=== PATIENT | female | born 1925 | race Caucasian/White ===

== ENCOUNTER 2016-09-28 12:40 | Inpatient (IN) | payer BC, OTHER ==
[2016-09-28 12:48] VITALS: BMI 25.6
[2016-09-28 14:16] LABS: MCH 33.1 pg (25.7-33.7); MCHC 31.8 g/dl (32.0-36.0); MEAN CELL VOLUME 104.1 fl (80-96); MEAN PLT VOLUME 7.5 fl (7.5-11.1); PLATELET COUNT 179 K/MM3 (134-434); RDW 22.2 % (11.6-15.6)
[2016-09-28] MEDS ORDERED: VANCOMYCIN 1,000 MG in DEXTROSE 5%-WATER - 250 ML IVPB ONE (14:22)
[2016-09-28] MEDS ORDERED: PIPERACILLIN/TAZOB 3.375 GM/50 ML PRE-DOCKED IVPB ONE (14:23)
[2016-09-28 14:28] LABS: INR 1.28 (0.82-1.09); PROTHROMBIN TIME (PATIENT) 14.2 SEC (9.98-11.88)
--- NOTE | 2016-09-28 14:35 | PDOC ---
[id number] Occurred: reports: other Severity: Yes: severe Lower Extremity Pain Location: left: leg Method of Injury: Yes: fell <Lalit Cornejo - Last Filed: 09/28/16 15:26> <Red Francoisan - Last Filed: 09/29/16 09:47> - General Chief Complaint: Weakness Stated Complaint: WEAK/PAIN Time Seen by Provider: 09/28/16 13:34 Past History - Past Medical History Anemia: Yes Asthma: No Cancer: No Cardiac Disorders: Yes (PPM) CVA: No COPD: No CHF: Yes Dementia: Yes Diabetes: No GI Disorders: No Disorders: No HTN: Yes Hypercholesterolemia: Yes Liver Disease: No Suicide Attempt (Hx): No Seizures: No Thyroid Disease: No - Surgical History Abdominal Surgery: No Appendectomy: No Cardiac Surgery: Yes (permanent pacemaker in infraclavicular region ) Cholecystectomy: No Lung Surgery: No Neurologic Surgery: No Orthopedic Surgery: Yes (fx B wrists and clavicle) - Immunization History Td Vaccination: Yes TDAP Vaccination: Yes Immunization Up to Date: Yes - Psycho/Social/Smoking Cessation Hx Anxiety: No Suicidal Ideation: No Smoking Status: No Smoking History: Never smoked Have you smoked in the past 12 months: No Number of Cigarettes Smoked Daily: 0 If you are a former smoker, when did you quit?: 50 years ago Hx Alcohol Use: No Drug/Substance Use Hx: No Substance Use Type: None Hx Substance Use Treatment: No <Lalit Cornejo - Last Filed: 09/28/16 15:26> <Red Francoisan - Last Filed: 09/29/16 09:47> - Past Medical History Allergies/Adverse Reactions: Allergies Allergy/AdvReac Type Severity Reaction Status Date / Time No Known Allergies Allergy Verified 09/28/16 12:48 Home Medications: Ambulatory Orders Fenofibric Acid [Trilipix -] 135 mg PO DAILY #0 cap 04/08/15 Folic Acid 1 mg PO DAILY 05/08/15 Magnesium Chloride [Slow-Mag -] 128 mg PO DAILY tablet.sa 05/18/15 Allopurinol [Zyloprim -] 100 mg PO DAILY tablet 09/29/15 Metoprolol Tartrate [Lopressor -] 50 mg PO BID tablet 09/29/15 Citalopram Hydrobromide [Celexa -] 1 tab PO DAILY 10/04/16 Ferrous Sulfate 1 tab PO DAILY 06/18/16 Multivitamins [Multivit ([facility] Formulary)] 1 tab PO DAILY 06/18/16 Ranitidine [Zantac -] 1 tab PO BID 06/18/16 Cyanocobalamin [Vitamin B12 -] 1,000 mcg PO DAILY 08/02/16 Docusate Sodium [Colace -] 100 mg PO DAILY capsule 08/19/16 Furosemide [Lasix -] 40 mg PO Q48H 09/06/16 Amlodipine Besylate [Norvasc -] 5 mg PO DAILY 09/20/16 Furosemide [Lasix -] 20 mg PO Q48H 09/20/16 Collagenase Clostridium Hist. [Santyl] 1 applic TP DAILY #90 oint...g. 09/27/16 Review of Systems - Review of Systems Constitutional: No: Chills, Fever, Malaise, Weakness Integumentary: Yes: Other (wound) <Lalit Cornejo Last Filed: 09/28/16 15:26> *Physical Exam - Vital Signs Last Vital Signs Temp Pulse Resp BP Pulse Ox 99.3 F 71 20 147/71 98 09/28/16 12:44 09/28/16 12:44 09/28/16 12:44 09/28/16 12:44 09/28/16 12:44 - Physical Exam General Appearance: Yes: Appropriately Dressed. No: Apparent Distress HEENT: positive: Normal Voice Respiratory/Chest: positive: Lungs Clear, Normal Breath Sounds. negative: Respiratory Distress Cardiovascular: positive: Regular Rate, S1, S2 Gastrointestinal/Abdominal: positive: Soft. negative: Tender Extremity: positive: Other (wound to lateral L leg draianign sig pus w/ erythema streaking up thigh, pusles intact) Integumentary: positive: Dry, Warm Neurologic: positive: Fully Oriented, Alert, Normal Mood/Affect <Lalit Cornejo Last Filed: 09/28/16 15:26> - Vital Signs Last Vital Signs Temp Pulse Resp BP Pulse Ox 98.5 F 70 18 150/65 99 09/29/16 05:26 09/29/16 05:26 09/29/16 05:26 09/29/16 05:26 09/28/16 20:30 <Alessandro,Carlos - Last Filed: 09/29/16 09:47> ED Treatment Course - LABORATORY CBC & Chemistry Diagram: 09/28/16 14:00 09/28/16 14:00 - ADDITIONAL ORDERS Additional order review: 09/28/16 14:00 RBC 2.25 L D MCV 104.1 H MCHC 31.8 L RDW 22.2 H D MPV 7.5 Neutrophils % Y Lymphocytes % Y - RADIOLOGY Radiology Studies Ordered: Category Date Time Status CHEST X-RAY PORTABLE* [RAD] Stat Radiology 09/28/16 14:05 Ordered LEG TIB/FIB-LEFT [RAD] Stat Radiology 09/28/16 14:05 Ordered <Lalit Cornejo - Last Filed: 09/28/16 15:26> - LABORATORY CBC & Chemistry Diagram: 09/29/16 06:00 09/29/16 06:00 - ADDITIONAL ORDERS Additional order review: Laboratory Results 09/28/16 14:00 Crossmatch See Detail 09/28/16 14:00 RBC 2.25 L D MCV 104.1 H MCHC 31.8 L RDW 22.2 H D MPV 7.5 Neutrophils % 75.0 D Lymphocytes % 1.0 L D Monocytes % 1.0 L D - Medications Given in the ED: ED Medications Discontinued Medications Generic Name Dose Route Start Last Admin Trade Name Arminda PRN Reason Stop Dose Admin Vancomycin HCl 1,000 mg/ 250 mls @ 250 mls/hr 09/28/16 14:22 09/28/16 15:43 Dextrose IVPB 09/28/16 15:21 250 mls/hr ONCE ONE Administration Piperacillin Sod/Tazobactam Sod 3.375 gm 09/28/16 14:23 09/28/16 15:36 Zosyn 3.375gm Ivpb (Pre-Docked) IVPB 09/28/16 14:24 3.375 gm ONCE ONE Administration <Carlos Francois - Last Filed: 09/29/16 09:47> Medical Decision Making - Medical Decision Making 09/28/16 14:35 89-year-old female history of CHF, pacemaker, hypertension, hyperlipidemia, pulmonary hypertension, anemia, and gout presents with left lower extremity pain and unable to ambulate. Patient reports wound to L leg s/p mechanical fall several weeks ago but states she did not come in to the ED as she felt fine and was able to ambulate with walker. Since then, would to lateral aspect of L leg has progressed and states family and visiting nurses have been caring for it at home, but here now because pain has worsened and has not been able to ambulate today. Denies any fever, chills, nausea, vomiting, weakness or malaise See exam Abscess/cellulitis to LLE Pt has what appears to be an ulcer draining pus w/ surrounding erythema w/ streaking up to thigh, pedal pulses intact -pain control -abx -XR r/o osteo -labs -admit 09/28/16 15:[address] Efrain Schrader who states he knows patient well and has been seen patient in clinic for wound care. As per M.D. saw patient yesterday and I and D abscess and placed drain. Aware that there is now streaking up patient's left thigh which M.D. did not witness yesterday. Also aware that white count is 34. States he will see patient in house 09/28/16 15:26 <Lalit Cornejo - Last Filed: 09/28/16 15:26> - Medical Decision Making 09/29/16 09:47 The patient was seen and evaluated in conjunction with JUAN Barksdale under my direct supervision, ancillary studies were reviewed. I agree with the plan as outlined by JUAN Barksdale . <Carlos Francois - Last Filed: 09/29/16 09:47> *DC/Admit/Observation/Transfer - Discharge Dispostion Admit: Yes <Lalit Cornejo - Last Filed: 09/28/16 15:26> <Carlos Francois - Last Filed: 09/29/16 09:47> Diagnosis at time of Disposition: Abscess or cellulitis of leg - Discharge Dispostion Condition at time of disposition: Fair - Referrals
[2016-09-28 14:37] LABS: ALBUMIN 3.1 g/dl (3.4-5.0); BILIRUBIN,TOTAL 0.7 mg/dL (0.2-1.0); CALCIUM 9.8 mg/dL (8.5-10.1)
[2016-09-28 14:55] LABS: HYPOCHROMIA 1+; MICROCYTOSIS 1+; PLATELET COMMENT2 NO CLOTTING DETECTED; PLATELET ESTIMATE ADEQUATE (NORMAL); POLYCHROMASIA 1+
[2016-09-28] MEDS ORDERED: ACETAMINOPHEN 325 MG TABLET (FP) PO PRN (15:01)
[2016-09-28] MEDS ORDERED: oxyCODONE HCL 5 MG TABLET PO PRN (15:01)
[2016-09-28] MEDS ORDERED: ONDANSETRON 4 MG/2 ML VIAL IVPB PRN (15:01)
[2016-09-28] MEDS ORDERED: SODIUM CHLORIDE 1,000 ML IV SCH (15:15)
[2016-09-28] MEDS ORDERED: FUROSEMIDE 40 MG TABLET (FP) PO SCH (15:30)
[2016-09-28] MEDS ORDERED: PIPERACILLIN/TAZOB 3.375 GM 50 ML IVPB ONE (15:38)
[2016-09-28] MEDS ORDERED: VANCOMYCIN 1 GRAM (PRE-DOCKED) 250 ML IVPB ONE (15:42)
--- NOTE | 2016-09-28 16:02 | EKG ---
Test Reason : Blood Pressure : / mmHG Vent. Rate : 065 BPM Atrial Rate : 065 BPM P-R Int : 190 ms QRS Dur : 154 ms QT Int : 452 ms P-R-T Axes : 080 -80 110 degrees QTc Int : 470 ms Atrial-sensed ventricular-paced rhythm ABNORMAL ECG WHEN COMPARED WITH ECG OF 13-AUG-2016 12:44, VENT. RATE HAS INCREASED BY 4 BPM Confirmed by KENNY COLÓN MD ([id number]) on 09/28/2016 4:02:23 PM Referred By: Confirmed By:KENNY COLÓN MD
--- NOTE | 2016-09-28 16:52 | CONSULT ---
Consult Consult Specialty:: infectious diseases Referred by:: Reason for Consultation:: swelling and leukocytosis - History of Present Illness Chief Complaint: pain in the left leg History of Present Illness: 89-year-old female history of CHF, pacemaker, hypertension, hyperlipidemia, pulmonary hypertension, anemia, and gout presents with left lower extremity pain and unable to ambulate. Patient reports wound to L leg s/p mechanical fall several weeks ago but states she did not come in to the ED as she felt fine and was able to ambulate with walker. Since then, would to lateral aspect of L leg has progressed and states family and visiting nurses have been caring for it at home, but here now because pain has worsened and has not been able to ambulate today. 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 Cardio/Vascular: Yes: CHF, HTN, Hyperlipdemia, Pulmonary Hypertension, Other ( pacemaker) Pulmonary: Yes: Other (pleural effusions) Gastrointestinal: Yes: Other (Clostridia difficile colitis , ventral hernia) Infectious Disease: Yes: C-Diff Psych: Yes: Depression Rheumatology: Yes: Gout - Past Surgical History Past Surgical History: Yes: Permanent Pacemaker, Tonsillectomy - Alcohol/Substance Use Hx Alcohol Use: No History of Substance Use: reports: None - Smoking History Smoking history: Never smoked Have you smoked in the past 12 months: No Aproximately how many cigarettes per day: 0 If you are a former smoker, when did you quit?: 50 years ago - Social History Usual Living Arrangement: With Child ADL: Family Assistance History of Recent Travel: No Home Medications - Allergies Allergies/Adverse Reactions: Allergies Allergy/AdvReac Type Severity Reaction Status Date / Time No Known Allergies Allergy Verified 09/28/16 12:48 - Home Medications Home Medications: Ambulatory Orders Fenofibric Acid [Trilipix -] 135 mg PO DAILY #0 cap 04/08/15 Folic Acid 1 mg PO DAILY 05/08/15 Magnesium Chloride [Slow-Mag -] 128 mg PO DAILY tablet.sa 05/18/15 Allopurinol [Zyloprim -] 100 mg PO DAILY tablet 09/29/15 Metoprolol Tartrate [Lopressor -] 50 mg PO BID tablet 09/29/15 Citalopram Hydrobromide [Celexa -] 1 tab PO DAILY 06/18/16 Ferrous Sulfate 1 tab PO DAILY 06/18/16 Multivitamins [Multivit ([facility] Formulary)] 1 tab PO DAILY 06/18/16 Ranitidine [Zantac -] 1 tab PO BID 06/18/16 Cyanocobalamin [Vitamin B12 -] 1,000 mcg PO DAILY 08/02/16 Docusate Sodium [Colace -] 100 mg PO DAILY capsule 08/19/16 Furosemide [Lasix -] 40 mg PO Q48H 09/06/16 Amlodipine Besylate [Norvasc -] 5 mg PO DAILY 09/20/16 Furosemide [Lasix -] 20 mg PO Q48H 09/20/16 Collagenase Clostridium Hist. [Santyl] 1 applic TP DAILY #90 oint...g. 09/27/16 Family Disease History - Family Disease History Family Disease History: Heart Disease: Sister, Respiratory: Father (TB, COPD), Other: Father, Mother ( of ruptured appendix), Brother (bladder cancer) Review of Systems - Review of Systems Constitutional: reports: Weakness, Other Eyes: reports: No Symptoms HENT: reports: No Symptoms Neck: reports: No Symptoms Cardiovascular: reports: No Symptoms Respiratory: reports: No Symptoms Gastrointestinal: reports: No Symptoms Genitourinary: reports: No Symptoms Integumentary: reports: Bruising, Change in Color, Erythema, Wound Neurological: reports: No Symptoms Endocrine: reports: No Symptoms Hematology/Lymphatic: reports: Easily Bruised Psychiatric: reports: No Symptoms Physical Exam Vital Signs: Vital Signs Temperature 99.3 F 09/28/16 12:44 Pulse Rate 71 09/28/16 12:44 Respiratory Rate 20 09/28/16 12:44 Blood Pressure 147/71 09/28/16 12:44 O2 Sat by Pulse Oximetry (%) 98 09/28/16 12:44 Constitutional: Yes: Well Nourished, Mild Distress Eyes: Yes: Conjunctiva Clear HENT: Yes: Atraumatic, Normocephalic Neck: Yes: Supple, Trachea Midline Cardiovascular: Yes: Regular Rate and Rhythm Respiratory: Yes: Regular, CTA Bilaterally Gastrointestinal: Yes: Normal Bowel Sounds, Soft Musculoskeletal: Yes: Other Extremities: Yes: Erythema, Other (swelling and fluctuation of the wound drainage of the wound) Integumentary: Yes: Erythema, Venous Stasis Changes, Other Wound/Incision: Yes: Draining, Other Neurological: Yes: Alert, Oriented Psychiatric: Yes: Alert, Oriented Imaging - Results X-ray: Report Reviewed, Image Reviewed Assessment/Plan Problem List - Problems (1) Abscess or cellulitis of leg Code(s): L02.419 - CUTANEOUS ABSCESS OF LIMB, UNSPECIFIED L03.119 - CELLULITIS OF UNSPECIFIED PART OF LIMB (2) Anemia Code(s): D64.9 - ANEMIA, UNSPECIFIED (3) CHF (congestive heart failure)y Code(s): I50.9 - HEART FAILURE, UNSPECIFIED Qualifiers: Congestive heart failure type: unspecified congestive heart failure type Congestive heart failure chronicity: unspecified congestive heart failure chronicity Qualified Code(s): I50.9 - Heart failure, unspecified (4) Fall Code(s): W19.XXXA - UNSPECIFIED FALL, INITIAL ENCOUNTER Qualifiers: Encounter type: initial encounter Qualified Code(s): W19.XXXA - Unspecified fall, initial encounter (5) HLD (hyperlipidemia) Code(s): E78.5 - HYPERLIPIDEMIA, UNSPECIFIED (6) HTN (hypertension) Code(s): I10 - ESSENTIAL (PRIMARY) HYPERTENSION plan we will start patient on zosyn ct scan of the leg surgery to evalaute for drainage await for cx results
[2016-09-28] MEDS ORDERED: PIPERACILLIN/TAZOB 3.375 GM 50 ML IVPB SCH (18:00)
[2016-09-29] MEDS: RANITIDINE HCL 150 MG TABLET (FP) PO SCH ×3 (00:19→21:43)
[2016-09-29] MEDS: METOPROLOL TARTRATE 50 MG TABLET (FP) PO SCH ×3 (00:19→21:50)
[2016-09-29] MEDS: PIPERACILLIN/TAZOB 3.375 GM 50 ML IVPB SCH ×2 (02:34→12:40)
[2016-09-29 07:29] LABS: BASOPHIL 0.2 % (0-2.0); EOSINOPHIL 0.3 % (0-4.5); MCH 33.4 pg (25.7-33.7); MCHC 32.2 g/dl (32.0-36.0); MEAN CELL VOLUME 103.6 fl (80-96); MEAN PLT VOLUME 7.6 fl (7.5-11.1); NEUTROPHILS 86.5 % (42.8-82.8); PLATELET COUNT 155 K/MM3 (134-434); RDW 22.6 % (11.6-15.6); WHITE BLOOD COUNT 15.4 K/mm3 (4.0-10.0)
[2016-09-29 07:47] LABS: CALCIUM 9.4 mg/dL (8.5-10.1); MAGNESIUM 2.3 mg/dL (1.8-2.4); PHOSPHOROUS 2.5 mg/dL (2.5-4.9)
[2016-09-29] MEDS ORDERED: CITALOPRAM HYDROBROMIDE 20 MG TABLET (FP) PO SCH (10:00)
[2016-09-29] MEDS ORDERED: FENOFIBRIC ACID 135 MG CAP PO SCH (10:00)
[2016-09-29] MEDS ORDERED: FUROSEMIDE 40 MG TABLET (FP) PO SCH (10:00)
[2016-09-29] MEDS ORDERED: FOLIC ACID 1 MG TABLET (FP) PO SCH (10:00)
[2016-09-29] MEDS ORDERED: MULTIVITAMINS (DAILY MVI) TABLET (FP) PO SCH (10:00)
[2016-09-29] MEDS ORDERED: LACTOBACILLUS ACIDOPHILUS 1 EACH TAB (FP) PO SCH (10:00)
[2016-09-29] MEDS ORDERED: CYANOCOBALAMIN 1,000 MCG TABLET (FP) PO SCH (10:00)
[2016-09-29] MEDS ORDERED: FERROUS SO4 325 MG TABLET (FP) PO SCH (10:00)
[2016-09-29] MEDS ORDERED: POLYETHYLENE GLYCOL 3350 119 GM BTL PO SCH (10:00)
[2016-09-29] MEDS ORDERED: ALLOPURINOL 100 MG TABLET (FP) PO SCH (10:00)
[2016-09-29] MEDS ORDERED: PATIENT'S OWN MEDICATION (NON-FORMULARY) (Ferrous Sulfate [Ferrous Sulfate] 1 TAB) PO SCH (10:00)
[2016-09-29] MEDS ORDERED: MAGNESIUM CL 64 MG TABLET.SA PO SCH (10:00)
[2016-09-29] MEDS ORDERED: DOCUSATE SODIUM 100 MG CAPSULE (FP) PO SCH (10:00)
--- NOTE | 2016-09-29 10:16 | CONSULT ---
Addendum entered and electronically signed by Donn Cleary PA 09/29/16 10:27: IV ABX as per ID CT Scan pending Original Note: Consultation: REQUESTING PROVIDER: Dr. Efrain Schrader (Wound Care / Vascular Surery) CONSULT REQUEST: We have been asked to surgically evaluate this patient for LLE wound. History Provided By: Patient & medical record HISTORY OF PRESENT ILLNESS: Called to eval 89 yo female w/ PMHx noted below. Patient well know to Dr. Schrader. He last saw patient last Friday at [facility] where he states he did a little debridement and opened up a pocket of pus. Per her medical record, she is s/p mechanical fall several weeks ago but states she did not come in to the ED as she felt fine and was able to ambulate with walker. She states she remembers the fall and denies any lightheadedness/CP/dizzy/weak/diaphoresis/palpitations prior to or post fall. Since then, wound to lateral aspect of L leg has progressed and states family and visiting nurses have been caring for it at home, but here now because pain has worsened and has not been able to ambulate today. Denies n/f/v/c, numbness or tingling. Denies easy bleeding, easy bruising. PMHx: Dementia, CHF, HTN, Hyperlipdemia, Pulmonary Hypertension, Pleural effusions, C.Diff, Vental hernia, Depression and Gout PSHx: Pacemaker, Tonsillectomy HOME MEDS Fenofibric Acid [Trilipix -] 135 mg PO DAILY #0 cap Folic Acid 1 mg PO DAILY 05/08/15 Magnesium Chloride [Slow-Mag -] 128 mg PO DAILY tablet.sa Allopurinol [Zyloprim -] 100 mg PO DAILY tablet Metoprolol Tartrate [Lopressor -] 50 mg PO BID tablet Citalopram Hydrobromide [Celexa -] 1 tab PO DAILY Ferrous Sulfate 1 tab PO DAILY Multivitamins [Multivit ([facility] Formulary)] 1 tab PO DAILY Ranitidine [Zantac -] 1 tab PO BID Cyanocobalamin [Vitamin B12 -] 1,000 mcg PO DAILY Docusate Sodium [Colace -] 100 mg PO DAILY capsule Pantoprazole Sodium [Protonix] 40 mg PO DAILY #30 tablet. Polyethylene Glycol 3350 [Miralax 119 gm Btl -] 17 gm PO DAILY bottle Furosemide [Lasix -] 40 mg PO Q48H Cephalexin [Keflex] 500 mg PO TID #21 capsule MDD Amlodipine Besylate [Norvasc -] 5 mg PO DAILY Furosemide [Lasix -] 20 mg PO Q48H Collagenase Clostridium Hist. [Santyl] 1 applic TP DAILY #90 oint ALLERGY: NKDA ROS: CONSTITUTIONAL: SEE ABOVE. Absent: Loss of appetite, weight change CARDIOVASCULAR: SEE ABOVE. Absent: Irregular heart rate, peripheral edema RESPIRATORY: SEE ABOVE. Absent: cough, orthopnea, wheezing, stridor, hemoptysis GASTROINTESTINAL:SEE ABOVE. Absent: pain, abdominal distension, constipation, melena, hematochezia :Absent: dysuria, frequency, urgency, hesitancy, hematuria, flank pain, genital pain MUSCULOSKELETAL: Absent: myalgia, arthralgia, joint swelling, back pain, neck pain SKIN: SEE ABOVE. HEMATOLOGIC/IMMUNOLOGIC: SEE ABOVE. Absent:lymphadenopathy, frequent infections NEUROLOGIC: Absent: headache, focal weakness or paresthesias, dizziness, unsteady gait, seizure, mental status changes, bladder or bowel incontinence PSYCHIATRIC: Absent: anxiety, depression, suicidal or homicidal ideation, hallucinations. Last Vital Signs Temp Pulse Resp BP Pulse Ox 98.5 F 70 18 150/65 99 09/29/16 05:26 09/29/16 05:26 09/29/16 05:26 09/29/16 05:26 09/28/16 20:30 PE General: Alert. NAD Pulmonary: CTA b/l anteriorly Cor: RRR ABD: Soft. NT. ND. Extremity: LLE: wound to anterolateral aspect of soriano, edamatous, warm to touch. No soft tissue crepitus, purulent drainage. Streaking erythema. + DP/PT TIB/FIB Xray: Air in soft tissue anterolaterally LLE. No bony destruction CT Scan: Pending LABS: CBC, BMP 09/29/16 06:00 09/29/16 06:00 INR, PTT INR 1.28 (0.82-1.09) H 09/28/16 14:00 Blood Type Blood Type A POSITIVE 09/28/16 14:00 Problem List - Problems (1) Abscess or cellulitis of leg Assessment/Plan: Patient made NPO after midnight except PO meds Booked for LLE debridement / washout 09/[address] Schrader Transfuse PRBC as her H/H 6.04/03 Medical optimization / clearance for above procedure (done under MAC) Dr. Schrader made aware and agrees with above plan Code(s): L02.419 - CUTANEOUS ABSCESS OF LIMB, UNSPECIFIED L03.119 - CELLULITIS OF UNSPECIFIED PART OF LIMB (2) Anemia Code(s): D64.9 - ANEMIA, UNSPECIFIED (3) Leukocytosis Code(s): D72.829 - ELEVATED WHITE BLOOD CELL COUNT, UNSPECIFIED (4) Pacemaker Code(s): Z95.0 - PRESENCE OF CARDIAC PACEMAKER Visit type - Case Type Case Type: ED Admission - Emergency Emergency Visit: Yes ED Registration Date: 09/28/16 Care time: The patient presented to the Emergency Department on the above date and was hospitalized for further evaluation of their emergent condition. - New patient This patient is new to me today: Yes Date on this admission: 09/29/16
--- NOTE | 2016-09-29 11:14 | HP ---
Admitting History and Physical - Primary Care Physician PCP: Neftali Garcia - Admission Chief Complaint: They want to fix something History of Present Illness: Ms Desouza is a very pleasant 89 year old female with dementia who comes in with cellulitis. Ms Desouza will not give me any history, she says that she is feeling ok. She does not know why she is in the hospital except that we want to "fix something". I cannot obtain any further history as she told me to "stop asking her questions" and became visibly upset while attempting to obtain history and the physical exam. Per son in law that I saw the day before presentation, he states Ms Desouza had a fall about two weeks ago. There was a hematoma that opened and caused a large wound. This was being taken care of by home nursing and Dr Schrader in wound clinic (I saw Ms Desouza prior to this visit in the hallway). Per ER note patient was unable to walk yesterday and came in secondary to this and was found to have a significant cellulitis. 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 Cardiovascular: Yes: CHF, HTN, Hyperlipdemia, Pulmonary Hypertension, Other ( pacemaker) Pulmonary: Yes: Other (pleural effusions) Gastrointestinal: Yes: Other (Clostridia difficile colitis , ventral hernia) ...: No Heme/Onc: Yes: Anemia Infectious Disease: Yes: C-Diff Psych: Yes: Depression Rheumatology: Yes: Gout - Past Surgical History Past Surgical History: Yes: Permanent Pacemaker, Tonsillectomy - Smoking History Smoking history: Never smoked Have you smoked in the past 12 months: No Aproximately how many cigarettes per day: 0 If you are a former smoker, when did you quit?: 50 years ago - Alcohol/Substance Use Hx Alcohol Use: No History of Substance Use: reports: None - Social History Usual Living Arrangement: Yes: With Child ADL: Family Assistance History of Recent Travel: No Home Medications - Allergies Allergies/Adverse Reactions: Allergies Allergy/AdvReac Type Severity Reaction Status Date / Time No Known Allergies Allergy Verified 09/28/16 12:48 - Home Medications Home Medications: Ambulatory Orders Fenofibric Acid [Trilipix -] 135 mg PO DAILY #0 cap 04/08/15 Folic Acid 1 mg PO DAILY 05/08/15 Magnesium Chloride [Slow-Mag -] 128 mg PO DAILY tablet.sa 05/18/15 Allopurinol [Zyloprim -] 100 mg PO DAILY tablet 09/29/15 Metoprolol Tartrate [Lopressor -] 50 mg PO BID tablet 09/29/15 Citalopram Hydrobromide [Celexa -] 1 tab PO DAILY 06/18/16 Ferrous Sulfate 1 tab PO DAILY 06/18/16 Multivitamins [Multivit ([facility] Formulary)] 1 tab PO DAILY 06/18/16 Ranitidine [Zantac -] 1 tab PO BID 06/18/16 Cyanocobalamin [Vitamin B12 -] 1,000 mcg PO DAILY 08/02/16 Docusate Sodium [Colace -] 100 mg PO DAILY capsule 08/19/16 Furosemide [Lasix -] 40 mg PO Q48H 09/06/16 Amlodipine Besylate [Norvasc -] 5 mg PO DAILY 09/20/16 Furosemide [Lasix -] 20 mg PO Q48H 09/20/16 Collagenase Clostridium Hist. [Santyl] 1 applic TP DAILY #90 oint...g. 09/27/16 Family Disease History - Family Disease History Family Disease History: Heart Disease: Sister, Respiratory: Father (TB, COPD), Other: Father, Mother ( of ruptured appendix), Brother (bladder cancer) Review of Systems Unable to obtain ROS, reason: dementia Physical Examination Vital Signs: Vital Signs Temperature 98.5 F 09/29/16 05:26 Pulse Rate 70 09/29/16 05:26 Respiratory Rate 18 09/29/16 05:26 Blood Pressure 150/65 09/29/16 05:26 O2 Sat by Pulse Oximetry (%) 99 09/28/16 20:30 Constitutional: Yes: Well Nourished, No Distress, Calm Eyes: Yes: Conjunctiva Clear HENT: Yes: Atraumatic, Normocephalic Cardiovascular: Yes: Regular Rate and Rhythm, Murmur. No: Gallop, Rub Respiratory: Yes: Other (unclear, patient kept saying "what are you doing?" during lung exam) Gastrointestinal: Yes: Normal Bowel Sounds, Soft. No: Distention, Tenderness Extremities: Yes: Erythema Edema: Yes Edema: LLE: 1+, RLE: 1+ Labs: CBC, BMP 09/29/16 06:00 09/29/16 06:00 Imaging - Results Chest X-ray: Report Reviewed, Image Reviewed X-ray: Report Reviewed Problem List - Problems (1) Abscess or cellulitis of leg Assessment/Plan: -s/p fall prior with injury -was being followed in wound clinic -however presents with cellulitis/abscess with sepsis -vascular surgery/wound care consulted -ID consulted -given vancomycin and zosyn in the ED, continue zosyn currently -will consult cardiology for cardiac clearance Code(s): L02.419 - CUTANEOUS ABSCESS OF LIMB, UNSPECIFIED L03.119 - CELLULITIS OF UNSPECIFIED PART OF LIMB (2) Anemia Assessment/Plan: -patient with dropping hemoglobin, suspect drop secondary to dilution -however patient has history of anemia -planning for surgery, will need optimization -transfuse two units Code(s): D64.9 - ANEMIA, UNSPECIFIED (3) CHF (congestive heart failure) Assessment/Plan: -not in exacerbation -continue lasix and metoprolol -cardiology consulted for optimization prior to surgery Code(s): I50.9 - HEART FAILURE, UNSPECIFIED Qualifiers: Congestive heart failure type: unspecified congestive heart failure type Congestive heart failure chronicity: unspecified congestive heart failure chronicity Qualified Code(s): I50.9 - Heart failure, unspecified (4) Fall Assessment/Plan: -history of fall about two weeks prior to admission -PT consult -fall risk precautions Code(s): W19.XXXA - UNSPECIFIED FALL, INITIAL ENCOUNTER Qualifiers: Encounter type: initial encounter Qualified Code(s): W19.XXXA - Unspecified fall, initial encounter (5) HLD (hyperlipidemia) Assessment/Plan: -continue trilipix Code(s): E78.5 - HYPERLIPIDEMIA, UNSPECIFIED (6) HTN (hypertension) Assessment/Plan: -continue amlodipine and metoprolol -monitor Code(s): I10 - ESSENTIAL (PRIMARY) HYPERTENSION
--- NOTE | 2016-09-29 12:11 | CONSULT ---
Cardiology Consult (text) - Consultation Consultation Note: Cardiology (Dr. Gallego covernig Dr. 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 No known prior CAD, IA or ASCVD. Now presents with left lower extremity wound that will require surgical debridement Denies chest pain or dyspnea Meds reviewed VS: 150/65mmHg, P70/min, RR 18 NO distress JVP normal Regular rate (+) systolic murmur No CHF Lungs are clear bilaterally (+) bilateral LE edema Echo in with moderate LVH, septal thickening, normal LVEF, moderate MR and RVSP 40-50mmHg. ECG: A-sensed and V-paced at 65/min. Labs: Hgb 6.7, Plt 155,000 BUN/Cr 41/1.0 INR 1.28 CXR: Dual chamber PPM noted IMP: 89 yo female with known PPM and lower extremity wound that will require surgical debridement Stable from cardiovascular perspective to proceed with necessary wound debridement. Continue metoprolol at current dose Would recommend placing magnet over PPM for asyncronous ventricular pacing during surgery if electrocautery is to be used.
--- NOTE | 2016-09-29 16:03 | PN ---
Progress Note, Physician History of Present Illness: stable no complaints - Current Medication List Current Medications: Active Medications Acetaminophen (Tylenol -) 650 mg PO Q4H PRN PRN Reason: FEVER OR PAIN Allopurinol (Zyloprim -) 100 mg PO DAILY [facility] Last Admin: 09/29/16 10:50 Dose: 100 mg Amlodipine Besylate (Norvasc -) 5 mg PO DAILY [facility] Citalopram Hydrobromide (Celexa -) 20 mg PO DAILY [facility] Last Admin: 09/29/16 10:45 Dose: 20 mg Cyanocobalamin (Vitamin B12 -) 1,000 mcg PO DAILY [facility] Last Admin: 09/29/16 10:35 Dose: 1,000 mcg Docusate Sodium (Colace -) 100 mg PO DAILY [facility] Last Admin: 09/29/16 10:45 Dose: 100 mg Fenofibric Acid (Trilipix -) 135 mg PO DAILY [facility] Last Admin: 09/29/16 10:55 Dose: Not Given Ferrous Sulfate (Feosol -) 325 mg PO DAILY [facility] Last Admin: 09/29/16 10:45 Dose: 325 mg Folic Acid (Folic Acid -) 1 mg PO DAILY [facility] Last Admin: 09/29/16 10:45 Dose: 1 mg Furosemide (Lasix -) 20 mg PO Q2D@1000 [facility] Furosemide (Lasix -) 40 mg PO Q2D@1000 [facility] Last Admin: 09/29/16 12:37 Dose: 40 mg Sodium Chloride (Normal Saline -) 1,000 mls @ 42 mls/hr IV ASDIR [facility] Last Admin: 09/28/16 19:57 Dose: 42 mls/hr Piperacillin Sod/Tazobactam Sod (Zosyn 3.375gm Ivpb (Pre-Docked)) 50 mls @ 100 mls/hr IVPB Q8H-IV [facility] Last Admin: 09/29/16 12:40 Dose: 100 mls/hr Lactobacillus Acidophilus (Bacid -) 1 tab PO DAILY [facility] Last Admin: 09/29/16 10:55 Dose: 1 tab Magnesium Chloride (Slow-Mag -) 128 mg PO DAILY [facility] Last Admin: 09/29/16 10:50 Dose: Not Given Metoprolol Tartrate (Lopressor -) 50 mg PO BID [facility] Last Admin: 09/29/16 10:45 Dose: 50 mg Multivitamins/Minerals/Vitamin C (Tab-A-Vit -) 1 tab PO DAILY [facility] Last Admin: 09/29/16 10:45 Dose: 1 tab Ondansetron HCl (Zofran Injection) 4 mg IVPB Q6H PRN PRN Reason: NAUSEA Oxycodone HCl (Roxicodone -) 5 mg PO Q6H PRN PRN Reason: PAIN Polyethylene Glycol (Miralax (For Daily Use) -) 17 gm PO DAILY [facility] Last Admin: 09/29/16 12:54 Dose: Not Given Ranitidine HCl (Zantac -) 150 mg PO BID [facility] Last Admin: 09/29/16 10:55 Dose: 150 mg - Objective Vital Signs: Vital Signs Temperature 98.2 F 09/29/16 14:01 Pulse Rate 73 09/29/16 14:01 Respiratory Rate 20 09/29/16 14:01 Blood Pressure 156/68 09/29/16 14:01 O2 Sat by Pulse Oximetry (%) 98 09/29/16 12:00 Constitutional: Yes: No Distress, Calm Cardiovascular: Yes: Regular Rate and Rhythm Respiratory: Yes: Regular, CTA Bilaterally Gastrointestinal: Yes: Normal Bowel Sounds, Soft Musculoskeletal: Yes: WNL Extremities: Yes: Other Wound/Incision: Yes: Draining Neurological: Yes: Alert, Oriented Psychiatric: Yes: Alert Labs: CBC, BMP 09/29/16 06:00 09/29/16 06:00 INR, PTT INR 1.28 (0.82-1.09) H 09/28/16 14:00 Assessment/Plan Problem List - Problems (1) Abscess or cellulitis of leg Code(s): L02.419 - CUTANEOUS ABSCESS OF LIMB, UNSPECIFIED L03.119 - CELLULITIS OF UNSPECIFIED PART OF LIMB (2) Anemia Code(s): D64.9 - ANEMIA, UNSPECIFIED (3) CHF (congestive heart failure)y Code(s): I50.9 - HEART FAILURE, UNSPECIFIED Qualifiers: Congestive heart failure type: unspecified congestive heart failure type Congestive heart failure chronicity: unspecified congestive heart failure chronicity Qualified Code(s): I50.9 - Heart failure, unspecified (4) Fall Code(s): W19.XXXA - UNSPECIFIED FALL, INITIAL ENCOUNTER Qualifiers: Encounter type: initial encounter Qualified Code(s): W19.XXXA - Unspecified fall, initial encounter (5) HLD (hyperlipidemia) Code(s): E78.5 - HYPERLIPIDEMIA, UNSPECIFIED (6) HTN (hypertension) Code(s): I10 - ESSENTIAL (PRIMARY) HYPERTENSION plan ct abx ct scan result noted await for surgery to drain the wound
[2016-09-29] MEDS ORDERED: FUROSEMIDE 40 MG/4 ML INJECTABLE VIAL IVPB ONE (17:27)
[2016-09-29] MEDS ORDERED: SODIUM CHLORIDE 1,000 ML IV SCH (19:49)
[2016-09-29] MEDS ORDERED: ACETAMINOPHEN 325 MG TABLET (FP) PO PRN (19:49)
[2016-09-29] MEDS ORDERED: ONDANSETRON 4 MG/2 ML VIAL IVPB PRN (19:49)
[2016-09-29] MEDS ORDERED: oxyCODONE HCL 5 MG TABLET PO PRN (19:49)
[2016-09-30] MEDS: PIPERACILLIN/TAZOB 3.375 GM 50 ML IVPB SCH ×4 (01:46→17:42)
[2016-09-30 07:46] LABS: BASOPHIL 0.4 % (0-2.0); EOSINOPHIL 0.2 % (0-4.5); MCH 33.2 pg (25.7-33.7); MCHC 33.4 g/dl (32.0-36.0); MEAN CELL VOLUME 99.3 fl (80-96); MEAN PLT VOLUME 7.9 fl (7.5-11.1); NEUTROPHILS 82.9 % (42.8-82.8); PLATELET COUNT 165 K/MM3 (134-434); RDW 25.1 % (11.6-15.6); WHITE BLOOD COUNT 10.9 K/mm3 (4.0-10.0)
[2016-09-30 08:05] LABS: ANION GAP 5 (8-16); CALCIUM 9.3 mg/dL (8.5-10.1); CO2 34 mmol/L (21-32); CREATININE 0.9 mg/dL (0.55-1.02); GLUCOSE,RANDOM 89 mg/dL (74-106); MAGNESIUM 2.2 mg/dL (1.8-2.4); PHOSPHOROUS 3.1 mg/dL (2.5-4.9)
[2016-09-30] MEDS ORDERED: PT OWN MED DRAWER 7, Y5N ONE ×2 (09:02→12:57)
[2016-09-30] MEDS: RANITIDINE HCL 150 MG TABLET (FP) PO SCH ×2 (09:05→21:38)
[2016-09-30] MEDS: METOPROLOL TARTRATE 50 MG TABLET (FP) PO SCH ×2 (09:05→21:38)
[2016-09-30 09:43] LABS: ALBUMIN 2.9 g/dl (3.4-5.0); ALK PHOS 48 U/L (45-117); BILIRUBIN,TOTAL 0.7 mg/dL (0.2-1.0); SGOT/AST 19 U/L (15-37); SGPT/ALT 12 U/L (12-78)
[2016-09-30] MEDS ORDERED: MULTIVITAMINS (DAILY MVI) TABLET (FP) PO SCH (10:00)
[2016-09-30] MEDS ORDERED: POLYETHYLENE GLYCOL 3350 119 GM BTL PO SCH (10:00)
[2016-09-30] MEDS ORDERED: FUROSEMIDE 20 MG TABLET (FP) PO SCH (10:00)
[2016-09-30] MEDS ORDERED: FENOFIBRIC ACID 135 MG CAP PO SCH (10:00)
[2016-09-30] MEDS ORDERED: DOCUSATE SODIUM 100 MG CAPSULE (FP) PO SCH (10:00)
[2016-09-30] MEDS ORDERED: MAGNESIUM CL 64 MG TABLET.SA PO SCH (10:00)
[2016-09-30] MEDS ORDERED: FOLIC ACID 1 MG TABLET (FP) PO SCH (10:00)
[2016-09-30] MEDS ORDERED: LACTOBACILLUS ACIDOPHILUS 1 EACH TAB (FP) PO SCH (10:00)
[2016-09-30] MEDS ORDERED: CYANOCOBALAMIN 1,000 MCG TABLET (FP) PO SCH (10:00)
[2016-09-30] MEDS ORDERED: ALLOPURINOL 100 MG TABLET (FP) PO SCH (10:00)
[2016-09-30] MEDS ORDERED: amLODIPine BESYLATE 5 MG TABLET (FP) PO SCH ×2 (10:00)
[2016-09-30] MEDS ORDERED: CITALOPRAM HYDROBROMIDE 20 MG TABLET (FP) PO SCH (10:00)
[2016-09-30] MEDS ORDERED: FERROUS SO4 325 MG TABLET (FP) PO SCH (10:00)
[2016-09-30] MEDS ORDERED: LIDOCAINE HCL 1%, 10 MG/ML (20ML VIAL) ONE (10:36)
[2016-09-30] MEDS ORDERED: LIDOCAINE HCL 1%, 10 MG/ML (50 mL VIAL) IJ ONE (11:01)
[2016-09-30] MEDS ORDERED: LACTATED RINGERS SOLUTION 1,000 ML IV SCH (11:30)
--- NOTE | 2016-09-30 12:06 | OP ---
Operative Note - Note: Operative Date: 09/30/16 Pre-Operative Diagnosis: Left leg abscess Operation: Excisional debridement left calf skin, subcutaneous tissue, with pulse lavage. Drainage of abscess. Post-Operative Diagnosis: Same as Pre-op Surgeon: Efrain Schrader Anesthesia: Fractional Estimated Blood Loss (mls): 20 Operative Report Dictated: Yes
[2016-09-30] MEDS ORDERED: ONDANSETRON 4 MG/2 ML VIAL IVPB PRN (12:13)
--- NOTE | 2016-09-30 12:16 | CONSULT ---
Cardiology Consult (text) - Consultation Consultation Note: Atempted to see patient but taken to the OR
--- NOTE | 2016-09-30 12:29 | PN ---
Progress Note, Physician Chief Complaint: Ms Desouza says she feels fine, states she is sleepy today. s/p debridement, slightly confused secondary to anesthesia. Talks about her name not being on a list. - Current Medication List Current Medications: Active Medications Acetaminophen (Tylenol -) 650 mg PO Q4H PRN PRN Reason: FEVER OR PAIN Allopurinol (Zyloprim -) 100 mg PO DAILY [facility] Amlodipine Besylate (Norvasc -) 5 mg PO DAILY [facility] Citalopram Hydrobromide (Celexa -) 20 mg PO DAILY [facility] Cyanocobalamin (Vitamin B12 -) 1,000 mcg PO DAILY [facility] Docusate Sodium (Colace -) 100 mg PO DAILY [facility] Fenofibric Acid (Trilipix -) 135 mg PO DAILY [facility] Fentanyl (Sublimaze Injection -) 25 mcg IVPUSH [id number] PRN PRN Reason: PAIN Stop: 10/03/16 11:17 Ferrous Sulfate (Feosol -) 325 mg PO DAILY [facility] Folic Acid (Folic Acid -) 1 mg PO DAILY [facility] Furosemide (Lasix -) 20 mg PO Q2D@1000 [facility] Furosemide (Lasix -) 40 mg PO Q2D@1000 [facility] Lactated Ringer's (Lactated Ringers Solution) 1,000 mls @ 75 mls/hr IV ASDIR [facility] Piperacillin Sod/Tazobactam Sod (Zosyn 3.375gm Ivpb (Pre-Docked)) 50 mls @ 100 mls/hr IVPB Q8H-IV [facility] Sodium Chloride (Normal Saline -) 1,000 mls @ 42 mls/hr IV ASDIR [facility] Lactobacillus Acidophilus (Bacid -) 1 tab PO DAILY [facility] Magnesium Chloride (Slow-Mag -) 128 mg PO DAILY [facility] Metoprolol Tartrate (Lopressor -) 50 mg PO BID [facility] Multivitamins/Minerals/Vitamin C (Tab-A-Vit -) 1 tab PO DAILY [facility] Ondansetron HCl (Zofran Injection) 4 mg IVPB Q6H PRN PRN Reason: NAUSEA Oxycodone HCl (Roxicodone -) 5 mg PO Q6H PRN PRN Reason: PAIN Polyethylene Glycol (Miralax (For Daily Use) -) 17 gm PO DAILY [facility] Ranitidine HCl (Zantac -) 150 mg PO BID [facility] - Objective Vital Signs: Vital Signs Temperature 97.8 F 09/30/16 11:08 Pulse Rate 65 09/30/16 11:30 Respiratory Rate 14 09/30/16 11:30 Blood Pressure 160/65 09/30/16 11:30 O2 Sat by Pulse Oximetry (%) 99 09/30/16 11:30 Constitutional: Yes: Well Nourished, No Distress, Calm Cardiovascular: Yes: Regular Rate and Rhythm. No: Gallop, Murmur, Rub Respiratory: Yes: Regular, CTA Bilaterally. No: Rales, Rhonchi, Wheezes Gastrointestinal: Yes: Normal Bowel Sounds, Soft. No: Distention, Tenderness Extremities: Yes: Other (wrapped) Edema: Yes Edema: LLE: 2+, RLE: 2+ Labs: CBC, BMP 09/30/16 05:35 09/30/16 05:35 INR, PTT INR 1.28 (0.82-1.09) H 09/28/16 14:00 Problem List - Problems (1) Abscess or cellulitis of leg Code(s): L02.419 - CUTANEOUS ABSCESS OF LIMB, UNSPECIFIED L03.119 - CELLULITIS OF UNSPECIFIED PART OF LIMB (2) Anemia Code(s): D64.9 - ANEMIA, UNSPECIFIED (3) CHF (congestive heart failure) Code(s): I50.9 - HEART FAILURE, UNSPECIFIED Qualifiers: Congestive heart failure type: unspecified congestive heart failure type Congestive heart failure chronicity: unspecified congestive heart failure chronicity Qualified Code(s): I50.9 - Heart failure, unspecified (4) Fall Code(s): W19.XXXA - UNSPECIFIED FALL, INITIAL ENCOUNTER Qualifiers: Encounter type: initial encounter Qualified Code(s): W19.XXXA - Unspecified fall, initial encounter (5) HLD (hyperlipidemia) Code(s): E78.5 - HYPERLIPIDEMIA, UNSPECIFIED (6) HTN (hypertension) Code(s): I10 - ESSENTIAL (PRIMARY) HYPERTENSION Assessment/Plan (1) Abscess or cellulitis of leg Assessment/Plan: -s/p debridement -continue zosyn per ID -vascular surgery to manage wound Code(s): L02.419 - CUTANEOUS ABSCESS OF LIMB, UNSPECIFIED L03.119 - CELLULITIS OF UNSPECIFIED PART OF LIMB (2) Anemia Assessment/Plan: -transfused 2 units with proper response Code(s): D64.9 - ANEMIA, UNSPECIFIED (3) CHF (congestive heart failure) Assessment/Plan: -had shortness of breath with transfusion -improved with IV lasix -continue lasix per cardiology recommendations Code(s): I50.9 - HEART FAILURE, UNSPECIFIED Qualifiers: Congestive heart failure type: unspecified congestive heart failure type Congestive heart failure chronicity: unspecified congestive heart failure chronicity Qualified Code(s): I50.9 - Heart failure, unspecified (4) Fall Assessment/Plan: -history of fall about two weeks prior to admission -PT consulted -fall risk precautions Code(s): W19.XXXA - UNSPECIFIED FALL, INITIAL ENCOUNTER Qualifiers: Encounter type: initial encounter Qualified Code(s): W19.XXXA - Unspecified fall, initial encounter (5) HLD (hyperlipidemia) Assessment/Plan: -continue trilipix Code(s): E78.5 - HYPERLIPIDEMIA, UNSPECIFIED (6) HTN (hypertension) Assessment/Plan: -elevated -increase amlodipine to 10mg -continue toprol Code(s): I10 - ESSENTIAL (PRIMARY) HYPERTENSION
[2016-09-30] MEDS: SODIUM CHLORIDE 1,000 ML IV SCH ×2 (13:00→22:00)
[2016-09-30] MEDS: MAGNESIUM CL 64 MG TABLET.SA PO SCH (13:01)
[2016-09-30] MEDS: LACTATED RINGERS SOLUTION 1,000 ML IV SCH (13:10)
--- NOTE | 2016-09-30 16:02 | PN ---
Progress Note, Physician History of Present Illness: patients abscess drained patient stable post procedure dressing wet - Current Medication List Current Medications: Active Medications Acetaminophen (Tylenol -) 650 mg PO Q4H PRN PRN Reason: FEVER OR PAIN Allopurinol (Zyloprim -) 100 mg PO DAILY [facility] Amlodipine Besylate (Norvasc -) 5 mg PO DAILY [facility] Citalopram Hydrobromide (Celexa -) 20 mg PO DAILY [facility] Cyanocobalamin (Vitamin B12 -) 1,000 mcg PO DAILY [facility] Docusate Sodium (Colace -) 100 mg PO DAILY [facility] Fenofibric Acid (Trilipix -) 135 mg PO DAILY [facility] Fentanyl (Sublimaze Injection -) 25 mcg IVPUSH [id number] PRN PRN Reason: PAIN Stop: 10/03/16 11:17 Ferrous Sulfate (Feosol -) 325 mg PO DAILY@0800 [facility] Folic Acid (Folic Acid -) 1 mg PO DAILY [facility] Furosemide (Lasix -) 20 mg PO Q2D@1000 [facility] Furosemide (Lasix -) 40 mg PO Q2D@1000 [facility] Lactated Ringer's (Lactated Ringers Solution) 1,000 mls @ 75 mls/hr IV ASDIR [facility] Last Admin: 09/30/16 13:10 Dose: Not Given Piperacillin Sod/Tazobactam Sod (Zosyn 3.375gm Ivpb (Pre-Docked)) 50 mls @ 100 mls/hr IVPB Q8H-IV [facility] Last Admin: 09/30/16 13:01 Dose: 100 mls/hr Sodium Chloride (Normal Saline -) 1,000 mls @ 42 mls/hr IV ASDIR [facility] Last Admin: 09/30/16 13:00 Dose: 42 mls/hr Lactobacillus Acidophilus (Bacid -) 1 tab PO DAILY [facility] Magnesium Chloride (Slow-Mag -) 128 mg PO DAILY [facility] Last Admin: 09/30/16 13:01 Dose: 128 mg Metoprolol Tartrate (Lopressor -) 50 mg PO BID [facility] Multivitamins/Minerals/Vitamin C (Tab-A-Vit -) 1 tab PO DAILY [facility] Ondansetron HCl (Zofran Injection) 4 mg IVPB Q6H PRN PRN Reason: NAUSEA Oxycodone HCl (Roxicodone -) 5 mg PO Q6H PRN PRN Reason: PAIN Polyethylene Glycol (Miralax (For Daily Use) -) 17 gm PO DAILY [facility] Ranitidine HCl (Zantac -) 150 mg PO BID [facility] - Objective Vital Signs: Vital Signs Temperature 98.2 F 09/30/16 12:30 Pulse Rate 66 09/30/16 12:30 Respiratory Rate 18 09/30/16 12:30 Blood Pressure 168/62 09/30/16 12:30 O2 Sat by Pulse Oximetry (%) 98 09/30/16 12:15 Constitutional: Yes: No Distress, Calm Cardiovascular: Yes: Regular Rate and Rhythm Respiratory: Yes: Regular, CTA Bilaterally Gastrointestinal: Yes: Normal Bowel Sounds Musculoskeletal: Yes: Other Extremities: Yes: Other Wound/Incision: Yes: Draining, Other Neurological: Yes: Alert, Oriented Psychiatric: Yes: Alert Labs: CBC, BMP 09/30/16 05:35 09/30/16 05:35 INR, PTT INR 1.28 (0.82-1.09) H 09/28/16 14:00 Assessment/Plan Problem List - Problems (1) Abscess or cellulitis of leg Code(s): L02.419 - CUTANEOUS ABSCESS OF LIMB, UNSPECIFIED L03.119 - CELLULITIS OF UNSPECIFIED PART OF LIMB (2) Anemia Code(s): D64.9 - ANEMIA, UNSPECIFIED (3) CHF (congestive heart failure)y Code(s): I50.9 - HEART FAILURE, UNSPECIFIED Qualifiers: Congestive heart failure type: unspecified congestive heart failure type Congestive heart failure chronicity: unspecified congestive heart failure chronicity Qualified Code(s): I50.9 - Heart failure, unspecified (4) Fall Code(s): W19.XXXA - UNSPECIFIED FALL, INITIAL ENCOUNTER Qualifiers: Encounter type: initial encounter Qualified Code(s): W19.XXXA - Unspecified fall, initial encounter (5) HLD (hyperlipidemia) Code(s): E78.5 - HYPERLIPIDEMIA, UNSPECIFIED (6) HTN (hypertension) Code(s): I10 - ESSENTIAL (PRIMARY) HYPERTENSION plan ct abx await for cx result
--- NOTE | 2016-09-30 16:39 | OP ---
DATE OF OPERATION: 09/30/2016 PREOPERATIVE DIAGNOSIS: Left soriano necrotic ulcer with drainage of pus. POSTOPERATIVE DIAGNOSIS: Left soriano necrotic ulcer with drainage of pus. PROCEDURE: Left soriano debridement, skin and subcutaneous tissue, with drainage of abscess. SURGEON: Efrain Bhagat DO ANESTHESIA: Fractional. BLOOD LOSS: 10 mL. The patient is an 89-year-old female who comes in on Friday afternoon with a white count of 34, with pus draining from her left soriano. It was decided that she would need to have it washed out and drained. The patient's family was consented for the procedure, understanding all risks, benefits, alternatives. She was then taken to the operating room. Once in the operating room, placed on operating table in supine manner. The area of the left leg was prepped and draped in sterile surgical manner. We then injected 20 mL of lidocaine 1% in the left lower extremity ulcer. We then went ahead and sharply debrided away the necrotic skin and subcutaneous tissue. We then used a pulse forklift material handler and pulse lavaged the entire wound, making sure that there were no pockets of pus that were draining. We then went ahead and opened over an area that was indurated and pus was drained and that area was pulse lavaged as well on the anterior soriano. After the pulse lavage, we went ahead and used a saline moist dressing and packed the wound. ABD pads were placed. Kerlix was placed. Patient tolerated the procedure, no complication. The patient was transferred back in stable condition. EFRAIN BHAGAT DO [id number]
[2016-09-30] MEDS: ACETAMINOPHEN 325 MG TABLET (FP) PO PRN (17:42)
[2016-09-30] MEDS: oxyCODONE HCL 5 MG TABLET PO PRN (17:44)
[2016-10-01] MEDS: PIPERACILLIN/TAZOB 3.375 GM 50 ML IVPB SCH ×3 (03:05→17:35)
[2016-10-01 08:31] LABS: BASOPHIL 0.6 % (0-2.0); EOSINOPHIL 0.9 % (0-4.5); MCH 32.3 pg (25.7-33.7); MCHC 32.9 g/dl (32.0-36.0); MEAN CELL VOLUME 98.3 fl (80-96); NEUTROPHILS 79.3 % (42.8-82.8); PLATELET COUNT 165 K/MM3 (134-434); RDW 24.1 % (11.6-15.6); WHITE BLOOD COUNT 11.6 K/mm3 (4.0-10.0)
--- NOTE | 2016-10-01 08:40 | PN ---
Progress Note (short form) - Note Progress Note: 89F POD1 s/p LLE wound debridement under MAC. Pt is doing well, mental status is at pre-procedure baseline. AVSS, pain is well controlled, reports no anesthetic complications.
[2016-10-01 08:44] LABS: CALCIUM 9.5 mg/dL (8.5-10.1); CREATININE 0.9 mg/dL (0.55-1.02); MAGNESIUM 2.3 mg/dL (1.8-2.4)
[2016-10-01] MEDS: LACTOBACILLUS ACIDOPHILUS 1 EACH TAB (FP) PO SCH (09:17)
[2016-10-01] MEDS: FUROSEMIDE 40 MG TABLET (FP) PO SCH (09:17)
[2016-10-01] MEDS: DOCUSATE SODIUM 100 MG CAPSULE (FP) PO SCH (09:17)
[2016-10-01] MEDS: FENOFIBRIC ACID 135 MG CAP PO SCH (09:17)
[2016-10-01] MEDS: METOPROLOL TARTRATE 50 MG TABLET (FP) PO SCH (09:17)
[2016-10-01] MEDS: FOLIC ACID 1 MG TABLET (FP) PO SCH (09:18)
[2016-10-01] MEDS: CITALOPRAM HYDROBROMIDE 20 MG TABLET (FP) PO SCH (09:18)
[2016-10-01] MEDS: CYANOCOBALAMIN 1,000 MCG TABLET (FP) PO SCH (09:18)
[2016-10-01] MEDS: ALLOPURINOL 100 MG TABLET (FP) PO SCH (09:18)
[2016-10-01] MEDS: MULTIVITAMINS (DAILY MVI) TABLET (FP) PO SCH (09:18)
[2016-10-01] MEDS: FERROUS SO4 325 MG TABLET (FP) PO SCH (09:18)
[2016-10-01] MEDS: RANITIDINE HCL 150 MG TABLET (FP) PO SCH ×2 (09:19→21:25)
[2016-10-01] MEDS: POLYETHYLENE GLYCOL 3350 119 GM BTL PO SCH (09:19)
[2016-10-01] MEDS: MAGNESIUM CL 64 MG TABLET.SA PO SCH (09:28)
[2016-10-01] MEDS ORDERED: amLODIPine BESYLATE 10 MG TABLET (FP) PO SCH (10:00)
[2016-10-01] MEDS ORDERED: amLODIPine BESYLATE 5 MG TABLET (FP) PO SCH (10:00)
[2016-10-01] MEDS ORDERED: FUROSEMIDE 40 MG TABLET (FP) PO SCH (10:00)
[2016-10-01] MEDS: SODIUM CHLORIDE 1,000 ML IV SCH ×2 (12:59→17:39)
--- NOTE | 2016-10-01 13:29 | PN ---
Progress Note, Physician Chief Complaint: Ms eDsouza says she feels fine, and that "meds are meds". At baseline. - Current Medication List Current Medications: Active Medications Acetaminophen (Tylenol -) 650 mg PO Q4H PRN PRN Reason: FEVER OR PAIN Last Admin: 09/30/16 17:42 Dose: 650 mg Allopurinol (Zyloprim -) 100 mg PO DAILY [facility] Last Admin: 10/01/16 09:18 Dose: 100 mg Amlodipine Besylate (Norvasc -) 10 mg PO DAILY [facility] Last Admin: 10/01/16 09:17 Dose: 10 mg Citalopram Hydrobromide (Celexa -) 20 mg PO DAILY [facility] Last Admin: 10/01/16 09:18 Dose: 20 mg Cyanocobalamin (Vitamin B12 -) 1,000 mcg PO DAILY [facility] Last Admin: 10/01/16 09:18 Dose: 1,000 mcg Docusate Sodium (Colace -) 100 mg PO DAILY [facility] Last Admin: 10/01/16 09:17 Dose: 100 mg Fenofibric Acid (Trilipix -) 135 mg PO DAILY [facility] Last Admin: 10/01/16 09:17 Dose: 135 mg Fentanyl (Sublimaze Injection -) 25 mcg IVPUSH [id number] PRN PRN Reason: PAIN Stop: 10/03/16 11:17 Ferrous Sulfate (Feosol -) 325 mg PO DAILY@0800 [facility] Last Admin: 10/01/16 09:18 Dose: 325 mg Folic Acid (Folic Acid -) 1 mg PO DAILY [facility] Last Admin: 10/01/16 09:18 Dose: 1 mg Furosemide (Lasix -) 20 mg PO Q2D@1000 [facility] Furosemide (Lasix -) 40 mg PO Q2D@1000 [facility] Last Admin: 10/01/16 09:17 Dose: 40 mg Lactated Ringer's (Lactated Ringers Solution) 1,000 mls @ 75 mls/hr IV ASDIR [facility] Last Admin: 09/30/16 13:10 Dose: Not Given Piperacillin Sod/Tazobactam Sod (Zosyn 3.375gm Ivpb (Pre-Docked)) 50 mls @ 100 mls/hr IVPB Q8H-IV [facility] Last Admin: 10/01/16 09:16 Dose: 100 mls/hr Sodium Chloride (Normal Saline -) 1,000 mls @ 42 mls/hr IV ASDIR [facility] Last Admin: 10/01/16 12:59 Dose: Not Given Lactobacillus Acidophilus (Bacid -) 1 tab PO DAILY [facility] Last Admin: 10/01/16 09:17 Dose: 1 tab Magnesium Chloride (Slow-Mag -) 128 mg PO DAILY [facility] Last Admin: 10/01/16 09:28 Dose: 128 mg Metoprolol Tartrate (Lopressor -) 50 mg PO BID [facility] Last Admin: 10/01/16 09:17 Dose: 50 mg Multivitamins/Minerals/Vitamin C (Tab-A-Vit -) 1 tab PO DAILY [facility] Last Admin: 10/01/16 09:18 Dose: 1 tab Ondansetron HCl (Zofran Injection) 4 mg IVPB Q6H PRN PRN Reason: NAUSEA Oxycodone HCl (Roxicodone -) 5 mg PO Q6H PRN PRN Reason: PAIN Last Admin: 09/30/16 17:44 Dose: 5 mg Polyethylene Glycol (Miralax (For Daily Use) -) 17 gm PO DAILY [facility] Last Admin: 10/01/16 09:19 Dose: 17 gm Potassium Phos/Sodium Phos (Phos-Nak Packet -) 1 packet PO TID [facility] Ranitidine HCl (Zantac -) 150 mg PO BID [facility] Last Admin: 10/01/16 09:19 Dose: 150 mg - Objective Vital Signs: Vital Signs Temperature 98.2 F 10/01/16 09:00 Pulse Rate 70 10/01/16 09:00 Respiratory Rate 18 10/01/16 09:00 Blood Pressure 160/84 10/01/16 09:00 O2 Sat by Pulse Oximetry (%) 98 10/01/16 09:00 Constitutional: Yes: Well Nourished, No Distress, Calm Cardiovascular: Yes: Regular Rate and Rhythm. No: Gallop, Murmur, Rub Respiratory: Yes: Regular, CTA Bilaterally. No: Rales, Rhonchi, Wheezes Gastrointestinal: Yes: Normal Bowel Sounds, Soft. No: Distention, Tenderness Extremities: Yes: Erythema, Other (wrapped) Edema: Yes Labs: CBC, BMP 10/01/16 06:20 10/01/16 06:20 INR, PTT INR 1.28 (0.82-1.09) H 09/28/16 14:00 Problem List - Problems (1) Abscess or cellulitis of leg Code(s): L02.419 - CUTANEOUS ABSCESS OF LIMB, UNSPECIFIED L03.119 - CELLULITIS OF UNSPECIFIED PART OF LIMB (2) Anemia Code(s): D64.9 - ANEMIA, UNSPECIFIED (3) CHF (congestive heart failure) Code(s): I50.9 - HEART FAILURE, UNSPECIFIED Qualifiers: Congestive heart failure type: unspecified congestive heart failure type Congestive heart failure chronicity: unspecified congestive heart failure chronicity Qualified Code(s): I50.9 - Heart failure, unspecified (4) Fall Code(s): W19.XXXA - UNSPECIFIED FALL, INITIAL ENCOUNTER Qualifiers: Encounter type: initial encounter Qualified Code(s): W19.XXXA - Unspecified fall, initial encounter (5) HLD (hyperlipidemia) Code(s): E78.5 - HYPERLIPIDEMIA, UNSPECIFIED (6) HTN (hypertension) Code(s): I10 - ESSENTIAL (PRIMARY) HYPERTENSION Assessment/Plan (1) Abscess or cellulitis of leg Assessment/Plan: -s/p debridement -ID managing, continue zosyn -full course per ID, may need SNF placement Code(s): L02.419 - CUTANEOUS ABSCESS OF LIMB, UNSPECIFIED L03.119 - CELLULITIS OF UNSPECIFIED PART OF LIMB (2) Anemia Assessment/Plan: -transfused 2 units with proper response -continue to monitor Code(s): D64.9 - ANEMIA, UNSPECIFIED (3) CHF (congestive heart failure) Assessment/Plan: -had episode of fluid overload with transfusion -resolved -continue lasix Code(s): I50.9 - HEART FAILURE, UNSPECIFIED Qualifiers: Congestive heart failure type: unspecified congestive heart failure type Congestive heart failure chronicity: unspecified congestive heart failure chronicity Qualified Code(s): I50.9 - Heart failure, unspecified (4) Fall Assessment/Plan: -history of fall about two weeks prior to admission -PT consulted -fall risk precautions Code(s): W19.XXXA - UNSPECIFIED FALL, INITIAL ENCOUNTER Qualifiers: Encounter type: initial encounter Qualified Code(s): W19.XXXA - Unspecified fall, initial encounter (5) HLD (hyperlipidemia) Assessment/Plan: -continue trilipix Code(s): E78.5 - HYPERLIPIDEMIA, UNSPECIFIED (6) HTN (hypertension) Assessment/Plan: -elevated -increased amlodipine to 10mg -continue toprol Code(s): I10 - ESSENTIAL (PRIMARY) HYPERTENSION
[2016-10-01] MEDS: NAPH,MB-DB/K PH,MBDB POWDER PACKET PO SCH ×2 (14:22→21:26)
[2016-10-01] MEDS: ACETAMINOPHEN 325 MG TABLET (FP) PO PRN (14:47)
[2016-10-01] MEDS: oxyCODONE HCL 5 MG TABLET PO PRN (14:48)
--- NOTE | 2016-10-01 15:11 | PN ---
Progress Note (short form) - Note Progress Note: POD#1 Patient seen and examined and dressing changed. She was medicated at the time of dressing change. Vital Signs Period Temp Pulse Resp BP Sys/Cohen Pulse Ox Last 24 Hr 98.0 F-98.6 F 64-76 18-20 153-175/70-84 98-98 PE: GEN: patient resting comfortabely in bed Left lower ext: kerlix dressing removed. No necrotic tissue at, some bloody drainage with dressing change under skin flap. Applied xeroform, pressure dressing with 4x4, abd kerlix and jesus wrap. CBC, BMP 01/17/17 06:20 01/17/17 06:20 Problem List - Problems (1) Abscess or cellulitis of leg Assessment/Plan: POD#1 s/p evacuation of hematoma, local wound care completed today. xeroform/ pressure dressing for some bleeding under the skin flap. leg elevation iv abx Code(s): L02.419 - CUTANEOUS ABSCESS OF LIMB, UNSPECIFIED L03.119 - CELLULITIS OF UNSPECIFIED PART OF LIMB
--- NOTE | 2016-10-01 15:31 | CONSULT ---
Consult Consult Specialty:: cardio Referred by:: jacquie Reason for Consultation:: chf - History of Present Illness Chief Complaint: leg swelling/abscess History of Present Illness: 89 yo female admitted with leg abscess. s/p I and D of leg abscess here. was anemic, received 2 U PRBCs with episode of chf--responded to iv lasix prn - Past Medical History [employer]: Yes: Dementia Cardio/Vascular: Yes: CHF, HTN, Hyperlipdemia, Pulmonary Hypertension, Other ( pacemaker) Pulmonary: Yes: Other (pleural effusions) Gastrointestinal: Yes: Other (Clostridia difficile colitis , ventral hernia) ...: No Infectious Disease: Yes: C-Diff Psych: Yes: Depression Rheumatology: Yes: Gout - Past Surgical History Past Surgical History: Yes: Permanent Pacemaker, Tonsillectomy - Alcohol/Substance Use Hx Alcohol Use: No History of Substance Use: reports: None - Smoking History Smoking history: Never smoked Have you smoked in the past 12 months: No Aproximately how many cigarettes per day: 0 If you are a former smoker, when did you quit?: 50 years ago - Social History Usual Living Arrangement: With Child ADL: Family Assistance History of Recent Travel: No Home Medications - Allergies Allergies/Adverse Reactions: Allergies Allergy/AdvReac Type Severity Reaction Status Date / Time No Known Allergies Allergy Verified 09/28/16 12:48 - Home Medications Home Medications: Ambulatory Orders Fenofibric Acid [Trilipix -] 135 mg PO DAILY #0 cap 04/08/15 Folic Acid 1 mg PO DAILY 05/08/15 Magnesium Chloride [Slow-Mag -] 128 mg PO DAILY tablet.sa 05/18/15 Allopurinol [Zyloprim -] 100 mg PO DAILY tablet 09/29/15 Metoprolol Tartrate [Lopressor -] 50 mg PO BID tablet 09/29/15 Citalopram Hydrobromide [Celexa -] 1 tab PO DAILY 06/18/16 Ferrous Sulfate 1 tab PO DAILY 06/18/16 Multivitamins [Multivit ([facility])] 1 tab PO DAILY 06/18/16 Ranitidine [Zantac -] 1 tab PO BID 06/18/16 Cyanocobalamin [Vitamin B12 -] 1,000 mcg PO DAILY 08/02/16 Docusate Sodium [Colace -] 100 mg PO DAILY capsule 12/05/16 Furosemide [Lasix -] 40 mg PO Q48H 09/06/16 Amlodipine Besylate [Norvasc -] 5 mg PO DAILY 09/20/16 Furosemide [Lasix -] 20 mg PO Q48H 09/20/16 Collagenase Clostridium Hist. [Santyl] 1 applic TP DAILY #90 oint...g. 09/27/16 Family Disease History - Family Disease History Family Disease History: Heart Disease: Sister, Respiratory: Father (TB, COPD), Other: Father, Mother ( of ruptured appendix), Brother (bladder cancer) Vital Signs: Vital Signs Temperature 98.6 F 10/01/16 14:00 Pulse Rate 72 10/01/16 14:00 Respiratory Rate 18 10/01/16 09:00 Blood Pressure 160/84 10/01/16 09:00 O2 Sat by Pulse Oximetry (%) 98 10/01/16 09:00 - Other Data Labs, Other Data: CBC, BMP 10/01/16 06:20 10/01/16 06:20 INR, PTT INR 1.28 (0.82-1.09) H 09/28/16 14:00 Assessment/Plan Echo 06/2016: Mod LVH with basal septal thickening. Mod MR/TR/ trace-mild AR. RVSP 40-50. Assessment/Plan 89 year old female hx htn, hld, ppm (medtronic), ckd, dchf/venous insuff/le edema sent to ER for labs showing hgb in 6's. chronic diast CHF, chronic venous ins'y/cellulitis: -once chf 06/30 -pt with chronic le edema, wt near baseline (low 140s lbs) and pt says le edema is better than usual -home lasix regimen: 20QD/40QD ALT, INCR TO 40 QD WHEN SWELLING WORSE htn: -targeting sbp <160 here given advanced age -bp's here running 150s-180s -amlod dose incr'd 08/30 for hi bp's in hosp--suspect will worsen chronic LE swelling with risk of recurrent cellulitis/hospitalizations -decr amlodipine back to 5mg qd -change lopressor to toprol for better 24 hr coverage -will add clonidine 0.1mg patch, +/- hydralazine later prn -consider change metopr to bystolic later but can worsen edema -no RAAS blockers given h/o hyperkalemia hld: -on trilipix, cont home regimen ppm: -normal check in office 02/2016, normal fcn on ecg 08/30-- continue routine outpt checks ckd: -cr near baseline, monitor with lasix anemia: -here 08/30 with severe anemia with hgb in 6s -hgb improved after prbcs -egd/foc unrevealing then, heme ?'d MDS dx--was for outpt f/u
--- NOTE | 2016-10-01 15:35 | PN ---
Progress Note, Physician History of Present Illness: patients abscess drained patient stable post procedure dressing changed wound looks good with good granulation according to surgery - Current Medication List Current Medications: Active Medications Acetaminophen (Tylenol -) 650 mg PO Q4H PRN PRN Reason: FEVER OR PAIN Last Admin: 10/01/16 14:47 Dose: 650 mg Allopurinol (Zyloprim -) 100 mg PO DAILY [facility] Last Admin: 10/01/16 09:18 Dose: 100 mg Amlodipine Besylate (Norvasc -) 10 mg PO DAILY [facility] Last Admin: 10/01/16 09:17 Dose: 10 mg Citalopram Hydrobromide (Celexa -) 20 mg PO DAILY [facility] Last Admin: 10/01/16 09:18 Dose: 20 mg Cyanocobalamin (Vitamin B12 -) 1,000 mcg PO DAILY [facility] Last Admin: 10/01/16 09:18 Dose: 1,000 mcg Docusate Sodium (Colace -) 100 mg PO DAILY [facility] Last Admin: 10/01/16 09:17 Dose: 100 mg Fenofibric Acid (Trilipix -) 135 mg PO DAILY [facility] Last Admin: 10/01/16 09:17 Dose: 135 mg Fentanyl (Sublimaze Injection -) 25 mcg IVPUSH [id number] PRN PRN Reason: PAIN Stop: 10/03/16 11:17 Ferrous Sulfate (Feosol -) 325 mg PO DAILY@0800 [facility] Last Admin: 10/01/16 09:18 Dose: 325 mg Folic Acid (Folic Acid -) 1 mg PO DAILY [facility] Last Admin: 10/01/16 09:18 Dose: 1 mg Furosemide (Lasix -) 20 mg PO Q2D@1000 [facility] Furosemide (Lasix -) 40 mg PO Q2D@1000 [facility] Last Admin: 10/01/16 09:17 Dose: 40 mg Lactated Ringer's (Lactated Ringers Solution) 1,000 mls @ 75 mls/hr IV ASDIR [facility] Last Admin: 09/30/16 13:10 Dose: Not Given Piperacillin Sod/Tazobactam Sod (Zosyn 3.375gm Ivpb (Pre-Docked)) 50 mls @ 100 mls/hr IVPB Q8H-IV [facility] Last Admin: 10/01/16 09:16 Dose: 100 mls/hr Sodium Chloride (Normal Saline -) 1,000 mls @ 42 mls/hr IV ASDIR [facility] Last Admin: 10/01/16 12:59 Dose: Not Given Lactobacillus Acidophilus (Bacid -) 1 tab PO DAILY [facility] Last Admin: 10/01/16 09:17 Dose: 1 tab Magnesium Chloride (Slow-Mag -) 128 mg PO DAILY [facility] Last Admin: 10/01/16 09:28 Dose: 128 mg Metoprolol Tartrate (Lopressor -) 50 mg PO BID [facility] Last Admin: 10/01/16 09:17 Dose: 50 mg Multivitamins/Minerals/Vitamin C (Tab-A-Vit -) 1 tab PO DAILY [facility] Last Admin: 10/01/16 09:18 Dose: 1 tab Ondansetron HCl (Zofran Injection) 4 mg IVPB Q6H PRN PRN Reason: NAUSEA Oxycodone HCl (Roxicodone -) 5 mg PO Q6H PRN PRN Reason: PAIN Last Admin: 10/01/16 14:48 Dose: 5 mg Polyethylene Glycol (Miralax (For Daily Use) -) 17 gm PO DAILY [facility] Last Admin: 10/01/16 09:19 Dose: 17 gm Potassium Phos/Sodium Phos (Phos-Nak Packet -) 1 packet PO TID [facility] Last Admin: 10/01/16 14:22 Dose: 1 packet Ranitidine HCl (Zantac -) 150 mg PO BID [facility] Last Admin: 10/01/16 09:19 Dose: 150 mg - Objective Vital Signs: Vital Signs Temperature 98.6 F 10/01/16 14:00 Pulse Rate 72 10/01/16 14:00 Respiratory Rate 18 10/01/16 09:00 Blood Pressure 160/84 10/01/16 09:00 O2 Sat by Pulse Oximetry (%) 98 10/01/16 09:00 Constitutional: Yes: No Distress, Calm Neck: Yes: Supple Cardiovascular: Yes: Regular Rate and Rhythm Respiratory: Yes: Regular Gastrointestinal: Yes: Normal Bowel Sounds Musculoskeletal: Yes: WNL Extremities: Yes: Other Wound/Incision: Yes: Dressing Dry and Intact Neurological: Yes: Alert, Oriented Psychiatric: Yes: Alert Labs: CBC, BMP 10/01/16 06:20 10/01/16 06:20 INR, PTT INR 1.28 (0.82-1.09) H 01/14/17 14:00 Assessment/Plan Problem List - Problems (1) Abscess or cellulitis of leg Code(s): L02.419 - CUTANEOUS ABSCESS OF LIMB, UNSPECIFIED L03.119 - CELLULITIS OF UNSPECIFIED PART OF LIMB (2) Anemia Code(s): D64.9 - ANEMIA, UNSPECIFIED (3) CHF (congestive heart failure)y Code(s): I50.9 - HEART FAILURE, UNSPECIFIED Qualifiers: Congestive heart failure type: unspecified congestive heart failure type Congestive heart failure chronicity: unspecified congestive heart failure chronicity Qualified Code(s): I50.9 - Heart failure, unspecified (4) Fall Code(s): W19.XXXA - UNSPECIFIED FALL, INITIAL ENCOUNTER Qualifiers: Encounter type: initial encounter Qualified Code(s): W19.XXXA - Unspecified fall, initial encounter (5) HLD (hyperlipidemia) Code(s): E78.5 - HYPERLIPIDEMIA, UNSPECIFIED (6) HTN (hypertension) Code(s): I10 - ESSENTIAL (PRIMARY) HYPERTENSION plan ct abx blood cx no growth we will switch to oral abx hopefully by
--- NOTE | 2016-10-01 15:42 | PN ---
Progress Note, Physician Chief Complaint: chf History of Present Illness: denies sob, orthopnea, palpitations, cp - Current Medication List Current Medications: Active Medications Acetaminophen (Tylenol -) 650 mg PO Q4H PRN PRN Reason: FEVER OR PAIN Last Admin: 10/01/16 14:47 Dose: 650 mg Allopurinol (Zyloprim -) 100 mg PO DAILY [facility] Last Admin: 10/01/16 09:18 Dose: 100 mg Amlodipine Besylate (Norvasc -) 5 mg PO DAILY [facility] Citalopram Hydrobromide (Celexa -) 20 mg PO DAILY [facility] Last Admin: 10/01/16 09:18 Dose: 20 mg Clonidine HCl (Catapres Tts Patch -) 0.1 mg TD Q7D@1000 [facility] Cyanocobalamin (Vitamin B12 -) 1,000 mcg PO DAILY [facility] Last Admin: 10/01/16 09:18 Dose: 1,000 mcg Docusate Sodium (Colace -) 100 mg PO DAILY [facility] Last Admin: 10/01/16 09:17 Dose: 100 mg Fenofibric Acid (Trilipix -) 135 mg PO DAILY [facility] Last Admin: 10/01/16 09:17 Dose: 135 mg Fentanyl (Sublimaze Injection -) 25 mcg IVPUSH [id number] PRN PRN Reason: PAIN Stop: 10/03/16 11:17 Ferrous Sulfate (Feosol -) 325 mg PO DAILY@0800 [facility] Last Admin: 10/01/16 09:18 Dose: 325 mg Folic Acid (Folic Acid -) 1 mg PO DAILY [facility] Last Admin: 10/01/16 09:18 Dose: 1 mg Furosemide (Lasix -) 20 mg PO Q2D@1000 [facility] Furosemide (Lasix -) 40 mg PO Q2D@1000 [facility] Last Admin: 10/01/16 09:17 Dose: 40 mg Lactated Ringer's (Lactated Ringers Solution) 1,000 mls @ 75 mls/hr IV ASDIR [facility] Last Admin: 09/30/16 13:10 Dose: Not Given Piperacillin Sod/Tazobactam Sod (Zosyn 3.375gm Ivpb (Pre-Docked)) 50 mls @ 100 mls/hr IVPB Q8H-IV [facility] Last Admin: 10/01/16 09:16 Dose: 100 mls/hr Sodium Chloride (Normal Saline -) 1,000 mls @ 42 mls/hr IV ASDIR [facility] Last Admin: 10/01/16 12:59 Dose: Not Given Lactobacillus Acidophilus (Bacid -) 1 tab PO DAILY [facility] Last Admin: 10/01/16 09:17 Dose: 1 tab Magnesium Chloride (Slow-Mag -) 128 mg PO DAILY [facility] Last Admin: 10/01/16 09:28 Dose: 128 mg Metoprolol Succinate (Toprol Xl -) 50 mg PO BID [facility] Multivitamins/Minerals/Vitamin C (Tab-A-Vit -) 1 tab PO DAILY [facility] Last Admin: 10/01/16 09:18 Dose: 1 tab Ondansetron HCl (Zofran Injection) 4 mg IVPB Q6H PRN PRN Reason: NAUSEA Oxycodone HCl (Roxicodone -) 5 mg PO Q6H PRN PRN Reason: PAIN Last Admin: 10/01/16 14:48 Dose: 5 mg Polyethylene Glycol (Miralax (For Daily Use) -) 17 gm PO DAILY [facility] Last Admin: 10/01/16 09:19 Dose: 17 gm Potassium Phos/Sodium Phos (Phos-Nak Packet -) 1 packet PO TID [facility] Last Admin: 10/01/16 14:22 Dose: 1 packet Ranitidine HCl (Zantac -) 150 mg PO BID [facility] Last Admin: 10/01/16 09:19 Dose: 150 mg - Objective Vital Signs: Vital Signs Temperature 98.6 F 10/01/16 14:00 Pulse Rate 72 10/01/16 14:00 Respiratory Rate 18 10/01/16 09:00 Blood Pressure 160/84 10/01/16 09:00 O2 Sat by Pulse Oximetry (%) 98 10/01/16 09:00 Constitutional: Yes: Well Nourished, No Distress, Calm Cardiovascular: Yes: Regular Rate and Rhythm, JVD (possibly), S1, S2. No: Gallop, Murmur Respiratory: Yes: Regular, CTA Bilaterally (diffusely decr'd). No: Accessory Muscle Use, Rales, Wheezes Extremities: No: Cold Edema: No ((L pretib wrapped)) Neurological: Yes: Alert, Oriented Psychiatric: No: Agitated Labs: CBC, BMP 10/01/16 06:20 10/01/16 06:20 INR, PTT INR 1.28 (0.82-1.09) H 09/28/16 14:00 Assessment/Plan Echo 06/2016: Mod LVH with basal septal thickening. Mod MR/TR/ trace-mild AR. RVSP 40-50. Assessment/Plan 89 year old female hx htn, hld, ppm (medtronic), ckd, dchf/venous insuff/le edema sent to ER for labs showing hgb in 6's. chronic diast CHF, chronic venous ins'y/cellulitis: -once chf 06/30 -pt with chronic le edema, wt near baseline (low 140s lbs) and pt says le edema is better than usual -c/o'd sob with PRBCs transfusion--s/p lasix 20 IVP--sx improved -cxr 09/29 with suspicion of vasc congestion and joni b lines, and ? pleural eff/parenchymal dz L base retrocardiac region -denies sob today, ? jvd on exam, lungs clear -rpt cxr today ordered (pending) -lasix 20mg IVP dose ordered today -home lasix regimen: 20QD/40QD ALT, INCR TO 40 QD WHEN SWELLING WORSE htn: -targeting sbp <160 here given advanced age -bp's here running 150s-180s -amlod dose incr'd 08/30 for hi bp's in hosp--suspect will worsen chronic LE swelling with risk of recurrent cellulitis/hospitalizations -decr amlodipine back to 5mg qd -change lopressor to toprol for better 24 hr coverage -will add clonidine 0.1mg patch, +/- hydralazine later prn -consider change metopr to bystolic later but can worsen edema -no RAAS blockers given h/o hyperkalemia hld: -on trilipix, cont home regimen ppm: -normal check in office 02/2016, normal fcn on ecg 08/30-- continue routine outpt checks ckd: -cr near baseline, monitor with lasix anemia: -here 08/30 with severe anemia with hgb in 6s -egd/foc unrevealing then, heme ?'d MDS dx--was for outpt f/u -again anemic now, req'd 2 U PRBCs -per pmd, heme
[2016-10-01] MEDS ORDERED: FUROSEMIDE 40 MG/4 ML INJECTABLE VIAL IVPUSH ONE (17:15)
[2016-10-01] MEDS: cloNIDine-TTS 0.1 MG/24 HRS PATCH.TDWK TD SCH (17:29)
[2016-10-01] MEDS: METOPROLOL SUCCINATE 50 MG TAB.SR.24H (FP) PO SCH (21:26)
[2016-10-02] MEDS: PIPERACILLIN/TAZOB 3.375 GM 50 ML IVPB SCH ×3 (01:42→17:17)
[2016-10-02] MEDS: NAPH,MB-DB/K PH,MBDB POWDER PACKET PO SCH ×3 (06:19→21:33)
[2016-10-02 07:17] LABS: BASOPHIL 1.2 % (0-2.0); EOSINOPHIL 2.4 % (0-4.5); MCH 32.7 pg (25.7-33.7); MCHC 33.2 g/dl (32.0-36.0); MEAN CELL VOLUME 98.7 fl (80-96); MEAN PLT VOLUME 7.9 fl (7.5-11.1); NEUTROPHILS 73.1 % (42.8-82.8); PLATELET COUNT 140 K/MM3 (134-434); RDW 23.1 % (11.6-15.6); WHITE BLOOD COUNT 7.3 K/mm3 (4.0-10.0)
[2016-10-02 07:35] LABS: CALCIUM 8.9 mg/dL (8.5-10.1); CREATININE 0.8 mg/dL (0.55-1.02); MAGNESIUM 1.9 mg/dL (1.8-2.4)
[2016-10-02] MEDS: FERROUS SO4 325 MG TABLET (FP) PO SCH (08:17)
[2016-10-02] MEDS: amLODIPine BESYLATE 5 MG TABLET (FP) PO SCH (09:36)
[2016-10-02] MEDS: FUROSEMIDE 20 MG TABLET (FP) PO SCH (09:36)
[2016-10-02] MEDS: RANITIDINE HCL 150 MG TABLET (FP) PO SCH ×2 (09:36→21:33)
[2016-10-02] MEDS: CITALOPRAM HYDROBROMIDE 20 MG TABLET (FP) PO SCH (09:36)
[2016-10-02] MEDS: CYANOCOBALAMIN 1,000 MCG TABLET (FP) PO SCH (09:36)
[2016-10-02] MEDS: DOCUSATE SODIUM 100 MG CAPSULE (FP) PO SCH (09:36)
[2016-10-02] MEDS: FENOFIBRIC ACID 135 MG CAP PO SCH (09:36)
[2016-10-02] MEDS: METOPROLOL SUCCINATE 50 MG TAB.SR.24H (FP) PO SCH ×2 (09:36→21:33)
[2016-10-02] MEDS: FOLIC ACID 1 MG TABLET (FP) PO SCH (09:37)
[2016-10-02] MEDS: LACTOBACILLUS ACIDOPHILUS 1 EACH TAB (FP) PO SCH (09:37)
[2016-10-02] MEDS: MULTIVITAMINS (DAILY MVI) TABLET (FP) PO SCH (09:37)
[2016-10-02] MEDS: ALLOPURINOL 100 MG TABLET (FP) PO SCH (09:37)
[2016-10-02] MEDS ORDERED: PT OWN MED DRAWER 7, Y5N ONE (11:39)
--- NOTE | 2016-10-02 11:55 | EKG ---
Test Reason : Blood Pressure : / mmHG Vent. Rate : 099 BPM Atrial Rate : 102 BPM P-R Int : 000 ms QRS Dur : 150 ms QT Int : 372 ms P-R-T Axes : 000 -75 092 degrees QTc Int : 477 ms Ventricular-paced rhythm ABNORMAL ECG WHEN COMPARED WITH ECG OF 28-SEP-2016 14:47, VENT. RATE HAS INCREASED BY 34 BPM Confirmed by ARABELLA FERNÁNDEZ MD ([id number]) on 10/02/2016 11:55:06 AM Referred By: Confirmed By:ARABELLA FERNÁNDEZ MD
[2016-10-02] MEDS: MAGNESIUM CL 64 MG TABLET.SA PO SCH (11:57)
[2016-10-02] MEDS: POLYETHYLENE GLYCOL 3350 119 GM BTL PO SCH (11:57)
[2016-10-02] MEDS: SODIUM CHLORIDE 1,000 ML IV SCH ×2 (14:00→17:15)
[2016-10-02] MEDS: LACTATED RINGERS SOLUTION 1,000 ML IV SCH (14:01)
--- NOTE | 2016-10-02 16:24 | PN ---
Progress Note, Physician History of Present Illness: stable doing well - Current Medication List Current Medications: Active Medications Acetaminophen (Tylenol -) 650 mg PO Q4H PRN PRN Reason: FEVER OR PAIN Last Admin: 10/01/16 14:47 Dose: 650 mg Allopurinol (Zyloprim -) 100 mg PO DAILY [facility] Last Admin: 10/02/16 09:37 Dose: 100 mg Amlodipine Besylate (Norvasc -) 5 mg PO DAILY [facility] Last Admin: 10/02/16 09:36 Dose: 5 mg Citalopram Hydrobromide (Celexa -) 20 mg PO DAILY [facility] Last Admin: 10/02/16 09:36 Dose: 20 mg Clonidine HCl (Catapres Tts Patch -) 0.1 mg TD Q7D@1000 [facility] Last Admin: 10/01/16 17:29 Dose: 0.1 mg Cyanocobalamin (Vitamin B12 -) 1,000 mcg PO DAILY [facility] Last Admin: 10/02/16 09:36 Dose: 1,000 mcg Docusate Sodium (Colace -) 100 mg PO DAILY [facility] Last Admin: 10/02/16 09:36 Dose: 100 mg Fenofibric Acid (Trilipix -) 135 mg PO DAILY [facility] Last Admin: 10/02/16 09:36 Dose: 135 mg Fentanyl (Sublimaze Injection -) 25 mcg IVPUSH [id number] PRN PRN Reason: PAIN Stop: 10/03/16 11:17 Ferrous Sulfate (Feosol -) 325 mg PO DAILY@0800 [facility] Last Admin: 10/02/16 08:17 Dose: 325 mg Folic Acid (Folic Acid -) 1 mg PO DAILY [facility] Last Admin: 10/02/16 09:37 Dose: 1 mg Furosemide (Lasix -) 20 mg PO Q2D@1000 [facility] Last Admin: 10/02/16 09:36 Dose: 20 mg Furosemide (Lasix -) 40 mg PO Q2D@1000 [facility] Last Admin: 10/01/16 09:17 Dose: 40 mg Lactated Ringer's (Lactated Ringers Solution) 1,000 mls @ 75 mls/hr IV ASDIR [facility] Last Admin: 10/02/16 14:01 Dose: Not Given Piperacillin Sod/Tazobactam Sod (Zosyn 3.375gm Ivpb (Pre-Docked)) 50 mls @ 100 mls/hr IVPB Q8H-IV [facility] Last Admin: 10/02/16 09:35 Dose: 100 mls/hr Sodium Chloride (Normal Saline -) 1,000 mls @ 42 mls/hr IV ASDIR [facility] Last Admin: 10/02/16 14:00 Dose: Not Given Lactobacillus Acidophilus (Bacid -) 1 tab PO DAILY [facility] Last Admin: 10/02/16 09:37 Dose: 1 tab Magnesium Chloride (Slow-Mag -) 128 mg PO DAILY [facility] Last Admin: 10/02/16 11:57 Dose: 128 mg Metoprolol Succinate (Toprol Xl -) 50 mg PO BID [facility] Last Admin: 10/02/16 09:36 Dose: 50 mg Multivitamins/Minerals/Vitamin C (Tab-A-Vit -) 1 tab PO DAILY [facility] Last Admin: 10/02/16 09:37 Dose: 1 tab Ondansetron HCl (Zofran Injection) 4 mg IVPB Q6H PRN PRN Reason: NAUSEA Oxycodone HCl (Roxicodone -) 5 mg PO Q6H PRN PRN Reason: PAIN Last Admin: 10/01/16 14:48 Dose: 5 mg Polyethylene Glycol (Miralax (For Daily Use) -) 17 gm PO DAILY [facility] Last Admin: 10/02/16 11:57 Dose: 17 gm Potassium Phos/Sodium Phos (Phos-Nak Packet -) 1 packet PO TID [facility] Last Admin: 10/02/16 13:59 Dose: 1 packet Ranitidine HCl (Zantac -) 150 mg PO BID [facility] Last Admin: 10/02/16 09:36 Dose: 150 mg - Objective Vital Signs: Vital Signs Temperature 98.2 F 10/02/16 13:41 Pulse Rate 75 10/02/16 13:41 Respiratory Rate 20 10/02/16 10:00 Blood Pressure 150/75 10/02/16 13:41 O2 Sat by Pulse Oximetry (%) 97 10/02/16 09:00 Constitutional: Yes: No Distress, Calm Cardiovascular: Yes: Regular Rate and Rhythm, Murmur Respiratory: Yes: Regular, Poor Air Entry Gastrointestinal: Yes: Normal Bowel Sounds, Soft Musculoskeletal: Yes: Other Extremities: Yes: Other Wound/Incision: Yes: Dressing Dry and Intact Neurological: Yes: Alert Labs: CBC, BMP 10/02/16 05:35 10/02/16 05:35 INR, PTT INR 1.28 (0.82-1.09) H 09/28/16 14:00 Assessment/Plan Problem List - Problems (1) Abscess or cellulitis of leg Code(s): L02.419 - CUTANEOUS ABSCESS OF LIMB, UNSPECIFIED L03.119 - CELLULITIS OF UNSPECIFIED PART OF LIMB (2) Anemia Code(s): D64.9 - ANEMIA, UNSPECIFIED (3) CHF (congestive heart failure)y Code(s): I50.9 - HEART FAILURE, UNSPECIFIED Qualifiers: Congestive heart failure type: unspecified congestive heart failure type Congestive heart failure chronicity: unspecified congestive heart failure chronicity Qualified Code(s): I50.9 - Heart failure, unspecified (4) Fall Code(s): W19.XXXA - UNSPECIFIED FALL, INITIAL ENCOUNTER Qualifiers: Encounter type: initial encounter Qualified Code(s): W19.XXXA - Unspecified fall, initial encounter (5) HLD (hyperlipidemia) Code(s): E78.5 - HYPERLIPIDEMIA, UNSPECIFIED (6) HTN (hypertension) Code(s): I10 - ESSENTIAL (PRIMARY) HYPERTENSION plan ct abx blood cx no growth we will switch to oral abx hopefully by
--- NOTE | 2016-10-02 16:37 | PN ---
Progress Note, Physician Chief Complaint: Ms Desouza continues to say "meds are meds", otherwise no complaints. - Current Medication List Current Medications: Active Medications Acetaminophen (Tylenol -) 650 mg PO Q4H PRN PRN Reason: FEVER OR PAIN Last Admin: 10/01/16 14:47 Dose: 650 mg Allopurinol (Zyloprim -) 100 mg PO DAILY [facility] Last Admin: 10/02/16 09:37 Dose: 100 mg Amlodipine Besylate (Norvasc -) 5 mg PO DAILY [facility] Last Admin: 10/02/16 09:36 Dose: 5 mg Citalopram Hydrobromide (Celexa -) 20 mg PO DAILY [facility] Last Admin: 10/02/16 09:36 Dose: 20 mg Clonidine HCl (Catapres Tts Patch -) 0.1 mg TD Q7D@1000 [facility] Last Admin: 10/01/16 17:29 Dose: 0.1 mg Cyanocobalamin (Vitamin B12 -) 1,000 mcg PO DAILY [facility] Last Admin: 10/02/16 09:36 Dose: 1,000 mcg Docusate Sodium (Colace -) 100 mg PO DAILY [facility] Last Admin: 10/02/16 09:36 Dose: 100 mg Fenofibric Acid (Trilipix -) 135 mg PO DAILY [facility] Last Admin: 10/02/16 09:36 Dose: 135 mg Fentanyl (Sublimaze Injection -) 25 mcg IVPUSH [id number] PRN PRN Reason: PAIN Stop: 10/03/16 11:17 Ferrous Sulfate (Feosol -) 325 mg PO DAILY@0800 [facility] Last Admin: 10/02/16 08:17 Dose: 325 mg Folic Acid (Folic Acid -) 1 mg PO DAILY [facility] Last Admin: 10/02/16 09:37 Dose: 1 mg Furosemide (Lasix -) 20 mg PO Q2D@1000 [facility] Last Admin: 10/02/16 09:36 Dose: 20 mg Furosemide (Lasix -) 40 mg PO Q2D@1000 [facility] Last Admin: 10/01/16 09:17 Dose: 40 mg Lactated Ringer's (Lactated Ringers Solution) 1,000 mls @ 75 mls/hr IV ASDIR [facility] Last Admin: 10/02/16 14:01 Dose: Not Given Piperacillin Sod/Tazobactam Sod (Zosyn 3.375gm Ivpb (Pre-Docked)) 50 mls @ 100 mls/hr IVPB Q8H-IV [facility] Last Admin: 10/02/16 09:35 Dose: 100 mls/hr Sodium Chloride (Normal Saline -) 1,000 mls @ 42 mls/hr IV ASDIR [facility] Last Admin: 10/02/16 14:00 Dose: Not Given Lactobacillus Acidophilus (Bacid -) 1 tab PO DAILY [facility] Last Admin: 10/02/16 09:37 Dose: 1 tab Magnesium Chloride (Slow-Mag -) 128 mg PO DAILY [facility] Last Admin: 10/02/16 11:57 Dose: 128 mg Metoprolol Succinate (Toprol Xl -) 50 mg PO BID [facility] Last Admin: 10/02/16 09:36 Dose: 50 mg Multivitamins/Minerals/Vitamin C (Tab-A-Vit -) 1 tab PO DAILY [facility] Last Admin: 10/02/16 09:37 Dose: 1 tab Ondansetron HCl (Zofran Injection) 4 mg IVPB Q6H PRN PRN Reason: NAUSEA Oxycodone HCl (Roxicodone -) 5 mg PO Q6H PRN PRN Reason: PAIN Last Admin: 10/01/16 14:48 Dose: 5 mg Polyethylene Glycol (Miralax (For Daily Use) -) 17 gm PO DAILY [facility] Last Admin: 10/02/16 11:57 Dose: 17 gm Potassium Phos/Sodium Phos (Phos-Nak Packet -) 1 packet PO TID [facility] Last Admin: 10/02/16 13:59 Dose: 1 packet Ranitidine HCl (Zantac -) 150 mg PO BID [facility] Last Admin: 10/02/16 09:36 Dose: 150 mg - Objective Vital Signs: Vital Signs Temperature 98.2 F 10/02/16 13:41 Pulse Rate 75 10/02/16 13:41 Respiratory Rate 20 10/02/16 10:00 Blood Pressure 150/75 10/02/16 13:41 O2 Sat by Pulse Oximetry (%) 97 10/02/16 09:00 Constitutional: Yes: Well Nourished, No Distress, Calm Cardiovascular: Yes: Regular Rate and Rhythm. No: Gallop, Murmur, Rub Respiratory: Yes: Regular, CTA Bilaterally. No: Rales, Rhonchi, Wheezes Gastrointestinal: Yes: Normal Bowel Sounds, Soft. No: Distention, Tenderness Extremities: Yes: Other (wrapped) Edema: No Labs: CBC, BMP 10/02/16 05:35 10/02/16 05:35 INR, PTT INR 1.28 (0.82-1.09) H 09/28/16 14:00 Problem List - Problems (1) Abscess or cellulitis of leg Code(s): L02.419 - CUTANEOUS ABSCESS OF LIMB, UNSPECIFIED L03.119 - CELLULITIS OF UNSPECIFIED PART OF LIMB (2) Anemia Code(s): D64.9 - ANEMIA, UNSPECIFIED (3) CHF (congestive heart failure) Code(s): I50.9 - HEART FAILURE, UNSPECIFIED Qualifiers: Congestive heart failure type: unspecified congestive heart failure type Congestive heart failure chronicity: unspecified congestive heart failure chronicity Qualified Code(s): I50.9 - Heart failure, unspecified (4) Fall Code(s): W19.XXXA - UNSPECIFIED FALL, INITIAL ENCOUNTER Qualifiers: Encounter type: initial encounter Qualified Code(s): W19.XXXA - Unspecified fall, initial encounter (5) HLD (hyperlipidemia) Code(s): E78.5 - HYPERLIPIDEMIA, UNSPECIFIED (6) HTN (hypertension) Code(s): I10 - ESSENTIAL (PRIMARY) HYPERTENSION Assessment/Plan (1) Abscess or cellulitis of leg Assessment/Plan: -s/p debridement -ID managing, continue zosyn -full course per ID, may need SNF placement Code(s): L02.419 - CUTANEOUS ABSCESS OF LIMB, UNSPECIFIED L03.119 - CELLULITIS OF UNSPECIFIED PART OF LIMB (2) Anemia Assessment/Plan: -transfused 2 units with proper response -continue to monitor Code(s): D64.9 - ANEMIA, UNSPECIFIED (3) CHF (congestive heart failure) Assessment/Plan: -had episode of fluid overload with transfusion -resolved -continue lasix Code(s): I50.9 - HEART FAILURE, UNSPECIFIED Qualifiers: Congestive heart failure type: unspecified congestive heart failure type Congestive heart failure chronicity: unspecified congestive heart failure chronicity Qualified Code(s): I50.9 - Heart failure, unspecified (4) Fall Assessment/Plan: -history of fall about two weeks prior to admission -PT consulted -fall risk precautions Code(s): W19.XXXA - UNSPECIFIED FALL, INITIAL ENCOUNTER Qualifiers: Encounter type: initial encounter Qualified Code(s): W19.XXXA - Unspecified fall, initial encounter (5) HLD (hyperlipidemia) Assessment/Plan: -continue trilipix Code(s): E78.5 - HYPERLIPIDEMIA, UNSPECIFIED (6) HTN (hypertension) Assessment/Plan: -remains elevated -cardiology note reviewed -amlodipine decreased secondary to swelling -toprol changed to xl form -clonidine patch started Code(s): I10 - ESSENTIAL (PRIMARY) HYPERTENSION
--- NOTE | 2016-10-02 17:09 | PN ---
Progress Note (short form) - Note Progress Note: Chief Complaint: chf History of Present Illness: Feels weak today, states she almost passed out after walking. no cp, palps, sob. S/p IV lasix yesterday. Current Medications Acetaminophen (Tylenol -) 650 mg PO Q4H PRN PRN Reason: FEVER OR PAIN Last Admin: 10/01/16 14:47 Dose: 650 mg Allopurinol (Zyloprim -) 100 mg PO DAILY [facility] Last Admin: 10/02/16 09:37 Dose: 100 mg Amlodipine Besylate (Norvasc -) 5 mg PO DAILY [facility] Last Admin: 10/02/16 09:36 Dose: 5 mg Citalopram Hydrobromide (Celexa -) 20 mg PO DAILY [facility] Last Admin: 10/02/16 09:36 Dose: 20 mg Clonidine HCl (Catapres Tts Patch -) 0.1 mg TD Q7D@1000 [facility] Last Admin: 10/01/16 17:29 Dose: 0.1 mg Cyanocobalamin (Vitamin B12 -) 1,000 mcg PO DAILY [facility] Last Admin: 10/02/16 09:36 Dose: 1,000 mcg Docusate Sodium (Colace -) 100 mg PO DAILY [facility] Last Admin: 10/02/16 09:36 Dose: 100 mg Fenofibric Acid (Trilipix -) 135 mg PO DAILY [facility] Last Admin: 10/02/16 09:36 Dose: 135 mg Fentanyl (Sublimaze Injection -) 25 mcg IVPUSH [id number] PRN PRN Reason: PAIN Stop: 10/03/16 11:17 Ferrous Sulfate (Feosol -) 325 mg PO DAILY@0800 [facility] Last Admin: 10/02/16 08:17 Dose: 325 mg Folic Acid (Folic Acid -) 1 mg PO DAILY [facility] Last Admin: 10/02/16 09:37 Dose: 1 mg Furosemide (Lasix -) 20 mg PO Q2D@1000 [facility] Last Admin: 10/02/16 09:36 Dose: 20 mg Furosemide (Lasix -) 40 mg PO Q2D@1000 [facility] Last Admin: 10/01/16 09:17 Dose: 40 mg Lactated Ringer's (Lactated Ringers Solution) 1,000 mls @ 75 mls/hr IV ASDIR [facility] Last Admin: 10/02/16 14:01 Dose: Not Given Piperacillin Sod/Tazobactam Sod (Zosyn 3.375gm Ivpb (Pre-Docked)) 50 mls @ 100 mls/hr IVPB Q8H-IV [facility] Last Admin: 10/02/16 09:35 Dose: 100 mls/hr Sodium Chloride (Normal Saline -) 1,000 mls @ 42 mls/hr IV ASDIR [facility] Last Admin: 10/02/16 14:00 Dose: Not Given Lactobacillus Acidophilus (Bacid -) 1 tab PO DAILY [facility] Last Admin: 10/02/16 09:37 Dose: 1 tab Magnesium Chloride (Slow-Mag -) 128 mg PO DAILY [facility] Last Admin: 10/02/16 11:57 Dose: 128 mg Metoprolol Succinate (Toprol Xl -) 50 mg PO BID [facility] Last Admin: 10/02/16 09:36 Dose: 50 mg Multivitamins/Minerals/Vitamin C (Tab-A-Vit -) 1 tab PO DAILY [facility] Last Admin: 10/02/16 09:37 Dose: 1 tab Ondansetron HCl (Zofran Injection) 4 mg IVPB Q6H PRN PRN Reason: NAUSEA Oxycodone HCl (Roxicodone -) 5 mg PO Q6H PRN PRN Reason: PAIN Last Admin: 10/01/16 14:48 Dose: 5 mg Polyethylene Glycol (Miralax (For Daily Use) -) 17 gm PO DAILY [facility] Last Admin: 10/02/16 11:57 Dose: 17 gm Potassium Phos/Sodium Phos (Phos-Nak Packet -) 1 packet PO TID [facility] Last Admin: 10/02/16 13:59 Dose: 1 packet Ranitidine HCl (Zantac -) 150 mg PO BID [facility] Last Admin: 10/02/16 09:36 Dose: 150 mg Vital Signs - 24 hr 10/01/16 10/01/16 10/01/16 18:00 21:00 22:00 Temperature 98.3 F 97.5 F L Pulse Rate 65 71 Respiratory 21 20 18 Rate Blood Pressure 151/66 157/62 O2 Sat by Pulse 98 Oximetry (%) 10/02/16 10/02/16 10/02/16 02:11 09:00 10:00 Temperature 98.1 F 98.4 F Pulse Rate 74 73 Respiratory 20 20 Rate Blood Pressure 155/80 169/78 O2 Sat by Pulse 97 Oximetry (%) 10/02/16 13:41 Temperature 98.2 F Pulse Rate 75 Respiratory Rate Blood Pressure 150/75 O2 Sat by Pulse Oximetry (%) Intake & Output 09/30/16 10/01/16 10/02/16 10/03/16 07:59 07:59 07:59 07:59 Intake Total 1600 1690 1350 1000 Output Total 10 2 Balance 1600 1680 1348 1000 Constitutional: Yes: Well Nourished, No Distress, Calm Cardiovascular: Yes: Regular Rate and Rhythm, JVD (possibly), S1, S2. No: Gallop, Murmur Respiratory: Yes: Regular, CTA Bilaterally (diffusely decr'd). No: Accessory Muscle Use, Rales, Wheezes Extremities: No: Cold Edema: No ((L pretib wrapped)) Neurological: Yes: Alert, Oriented Psychiatric: No: Agitated Labs: CBC, BMP 10/02/16 05:35 10/02/16 05:35 Assessment/Plan Echo 06/2016: Mod LVH with basal septal thickening. Mod MR/TR/ trace-mild AR. RVSP 40-50. Assessment/Plan 89 year old female hx htn, hld, ppm (medtronic), ckd, dchf/venous insuff/le edema sent to ER for labs showing hgb in 6's. chronic diast CHF, chronic venous ins'y/cellulitis: -once chf 06/30 -pt with chronic le edema, wt near baseline (low 140s lbs) and pt says le edema is better than usual -c/o'd sob with PRBCs transfusion--s/p lasix 20 IVP--sx improved -cxr 09/29 with suspicion of vasc congestion and joni b lines, and ? pleural eff/parenchymal dz L base retrocardiac region -denies sob today, ? jvd on exam, lungs clear -10/01: rpt cxr today ordered (pending). lasix 20mg IVP x 1. -10/02. Na increased. resume home lasix regimen: 20QD/40QD ALT, INCR TO 40 QD WHEN SWELLING WORSE htn: -targeting sbp <160 here given advanced age -bp's here running 150s-180s -amlod dose incr'd 12/16 for hi bp's in hosp--suspect will worsen chronic LE swelling with risk of recurrent cellulitis/hospitalizations -10/01 elevated bp's --> decr amlodipine back to 5mg qd, changed lopressor to toprol for better 24 hr coverage, added clonidine 0.1mg patch, +/- hydralazine later prn - monitor for improvement in bp. -no RAAS blockers given h/o hyperkalemia hld: -on trilipix, cont home regimen ppm: -normal check in office 02/2016, normal fcn on ecg 08/30-- continue routine outpt checks ckd: -cr near baseline, monitor with lasix anemia: -here 08/30 with severe anemia with hgb in 6s -egd/foc unrevealing then, heme ?'d MDS dx--was for outpt f/u -again anemic now, req'd 2 U PRBCs -per pmd, heme
--- NOTE | 2016-10-02 18:49 | PN ---
Progress Note (short form) - Note Progress Note: Vascular Surgery Pt seen and examined. Doing well Dressing changed. No signs of infection. Santyl daily to area. PT for ambulation. Efrain villavicencio DO
[2016-10-02] MEDS: COLLAGENASE CLOSTRIDIUM HIST. 30 GRAMS TUBE TP SCH (20:36)
[2016-10-02] MEDS: ACETAMINOPHEN 325 MG TABLET (FP) PO PRN (21:33)
[2016-10-03] MEDS: PIPERACILLIN/TAZOB 3.375 GM 50 ML IVPB SCH ×3 (01:25→16:57)
[2016-10-03] MEDS: NAPH,MB-DB/K PH,MBDB POWDER PACKET PO SCH ×3 (05:30→21:29)
[2016-10-03] MEDS: FERROUS SO4 325 MG TABLET (FP) PO SCH (08:30)
[2016-10-03 08:42] LABS: CALCIUM 8.9 mg/dL (8.5-10.1); CREATININE 0.8 mg/dL (0.55-1.02); PHOSPHOROUS 2.7 mg/dL (2.5-4.9)
[2016-10-03 08:48] LABS: BASOPHIL 1.2 % (0-2.0); EOSINOPHIL 2.6 % (0-4.5); MCH 32.6 pg (25.7-33.7); MCHC 32.7 g/dl (32.0-36.0); MEAN CELL VOLUME 99.7 fl (80-96); MEAN PLT VOLUME 8.1 fl (7.5-11.1); NEUTROPHILS 64.7 % (42.8-82.8); PLATELET COUNT 155 K/MM3 (134-434); RDW 22.2 % (11.6-15.6); WHITE BLOOD COUNT 6.5 K/mm3 (4.0-10.0)
[2016-10-03] MEDS ORDERED: FUROSEMIDE 40 MG/4 ML INJECTABLE VIAL IVPUSH ONE (09:14)
[2016-10-03] MEDS: LACTOBACILLUS ACIDOPHILUS 1 EACH TAB (FP) PO SCH (10:19)
[2016-10-03] MEDS: MULTIVITAMINS (DAILY MVI) TABLET (FP) PO SCH (10:19)
[2016-10-03] MEDS: CYANOCOBALAMIN 1,000 MCG TABLET (FP) PO SCH (10:19)
[2016-10-03] MEDS: amLODIPine BESYLATE 5 MG TABLET (FP) PO SCH (10:19)
[2016-10-03] MEDS: RANITIDINE HCL 150 MG TABLET (FP) PO SCH ×2 (10:19→21:29)
[2016-10-03] MEDS: DOCUSATE SODIUM 100 MG CAPSULE (FP) PO SCH (10:19)
[2016-10-03] MEDS: METOPROLOL SUCCINATE 50 MG TAB.SR.24H (FP) PO SCH ×2 (10:19→21:29)
[2016-10-03] MEDS: ALLOPURINOL 100 MG TABLET (FP) PO SCH (10:19)
[2016-10-03] MEDS: CITALOPRAM HYDROBROMIDE 20 MG TABLET (FP) PO SCH (10:19)
[2016-10-03] MEDS: FENOFIBRIC ACID 135 MG CAP PO SCH (10:20)
[2016-10-03] MEDS: FOLIC ACID 1 MG TABLET (FP) PO SCH (10:20)
[2016-10-03] MEDS: POLYETHYLENE GLYCOL 3350 119 GM BTL PO SCH ×2 (10:20→10:58)
[2016-10-03] MEDS: FUROSEMIDE 40 MG TABLET (FP) PO SCH (10:23)
[2016-10-03] MEDS ORDERED: PT OWN MED DRAWER 7, Y5N ONE (10:37)
[2016-10-03] MEDS: MAGNESIUM CL 64 MG TABLET.SA PO SCH (10:39)
[2016-10-03 14:11] LABS: ANISOCYTOSIS 2+; MICROCYTOSIS 1+; STOMATOCYTE 3+
[2016-10-03] MEDS ORDERED: FUROSEMIDE 40 MG/4 ML INJECTABLE VIAL ONE (15:11)
[2016-10-03] MEDS: LACTATED RINGERS SOLUTION 1,000 ML IV SCH (15:16)
[2016-10-03] MEDS: SODIUM CHLORIDE 1,000 ML IV SCH (15:16)
[2016-10-03] MEDS: COLLAGENASE CLOSTRIDIUM HIST. 30 GRAMS TUBE TP SCH (15:46)
--- NOTE | 2016-10-03 17:56 | PN ---
Progress Note, Physician Chief Complaint: Ms Desouza says she would say she is doing better, but she does not want to lie. And then says she feels ok and that "meds are meds". - Current Medication List Current Medications: Active Medications Acetaminophen (Tylenol -) 650 mg PO Q4H PRN PRN Reason: FEVER OR PAIN Last Admin: 10/02/16 21:33 Dose: 650 mg Allopurinol (Zyloprim -) 100 mg PO DAILY [facility] Last Admin: 10/03/16 10:19 Dose: 100 mg Amlodipine Besylate (Norvasc -) 5 mg PO DAILY [facility] Last Admin: 10/03/16 10:19 Dose: 5 mg Citalopram Hydrobromide (Celexa -) 20 mg PO DAILY [facility] Last Admin: 10/03/16 10:19 Dose: 20 mg Clonidine HCl (Catapres Tts Patch -) 0.1 mg TD Q7D@1000 [facility] Last Admin: 10/01/16 17:29 Dose: 0.1 mg Collagenase (Santyl -) 1 applic TP DAILY [facility] Last Admin: 10/03/16 15:46 Dose: 1 applic Cyanocobalamin (Vitamin B12 -) 1,000 mcg PO DAILY [facility] Last Admin: 10/03/16 10:19 Dose: 1,000 mcg Docusate Sodium (Colace -) 100 mg PO DAILY [facility] Last Admin: 10/03/16 10:19 Dose: 100 mg Fenofibric Acid (Trilipix -) 135 mg PO DAILY [facility] Last Admin: 10/03/16 10:20 Dose: 135 mg Ferrous Sulfate (Feosol -) 325 mg PO DAILY@0800 [facility] Last Admin: 10/03/16 08:30 Dose: 325 mg Folic Acid (Folic Acid -) 1 mg PO DAILY [facility] Last Admin: 10/03/16 10:20 Dose: 1 mg Furosemide (Lasix -) 20 mg PO Q2D@1000 [facility] Last Admin: 10/02/16 09:36 Dose: 20 mg Furosemide (Lasix -) 40 mg PO Q2D@1000 [facility] Last Admin: 10/03/16 10:23 Dose: 40 mg Lactated Ringer's (Lactated Ringers Solution) 1,000 mls @ 75 mls/hr IV ASDIR [facility] Last Admin: 10/03/16 15:16 Dose: Not Given Piperacillin Sod/Tazobactam Sod (Zosyn 3.375gm Ivpb (Pre-Docked)) 50 mls @ 100 mls/hr IVPB Q8H-IV [facility] Last Admin: 10/03/16 16:57 Dose: 100 mls/hr Sodium Chloride (Normal Saline -) 1,000 mls @ 42 mls/hr IV ASDIR [facility] Last Admin: 10/03/16 15:16 Dose: Not Given Lactobacillus Acidophilus (Bacid -) 1 tab PO DAILY [facility] Last Admin: 10/03/16 10:19 Dose: 1 tab Magnesium Chloride (Slow-Mag -) 128 mg PO DAILY [facility] Last Admin: 10/03/16 10:39 Dose: 128 mg Metoprolol Succinate (Toprol Xl -) 50 mg PO BID [facility] Last Admin: 10/03/16 10:19 Dose: 50 mg Multivitamins/Minerals/Vitamin C (Tab-A-Vit -) 1 tab PO DAILY [facility] Last Admin: 10/03/16 10:19 Dose: 1 tab Ondansetron HCl (Zofran Injection) 4 mg IVPB Q6H PRN PRN Reason: NAUSEA Polyethylene Glycol (Miralax (For Daily Use) -) 17 gm PO DAILY [facility] Last Admin: 10/03/16 10:58 Dose: Not Given Potassium Phos/Sodium Phos (Phos-Nak Packet -) 1 packet PO TID [facility] Last Admin: 10/03/16 13:55 Dose: 1 packet Ranitidine HCl (Zantac -) 150 mg PO BID [facility] Last Admin: 10/03/16 10:19 Dose: 150 mg - Objective Vital Signs: Vital Signs Temperature 98 F 10/03/16 17:09 Pulse Rate 62 10/03/16 17:09 Respiratory Rate 19 10/03/16 17:09 Blood Pressure 145/68 10/03/16 17:09 O2 Sat by Pulse Oximetry (%) 99 10/03/16 09:00 Constitutional: Yes: Well Nourished, No Distress, Calm Cardiovascular: Yes: Regular Rate and Rhythm. No: Gallop, Murmur, Rub Respiratory: Yes: Regular, CTA Bilaterally. No: Rales, Rhonchi, Wheezes Gastrointestinal: Yes: Normal Bowel Sounds, Soft. No: Distention, Tenderness Extremities: Yes: Other (wrapped) Edema: Yes Edema: LLE: 2+, RLE: 2+ Labs: CBC, BMP 10/03/16 07:30 10/03/16 07:30 INR, PTT INR 1.28 (0.82-1.09) H 09/28/16 14:00 Problem List - Problems (1) Abscess or cellulitis of leg Code(s): L02.419 - CUTANEOUS ABSCESS OF LIMB, UNSPECIFIED L03.119 - CELLULITIS OF UNSPECIFIED PART OF LIMB (2) Anemia Code(s): D64.9 - ANEMIA, UNSPECIFIED (3) CHF (congestive heart failure) Code(s): I50.9 - HEART FAILURE, UNSPECIFIED Qualifiers: Congestive heart failure type: unspecified congestive heart failure type Congestive heart failure chronicity: unspecified congestive heart failure chronicity Qualified Code(s): I50.9 - Heart failure, unspecified (4) Fall Code(s): W19.XXXA - UNSPECIFIED FALL, INITIAL ENCOUNTER Qualifiers: Encounter type: initial encounter Qualified Code(s): W19.XXXA - Unspecified fall, initial encounter (5) HLD (hyperlipidemia) Code(s): E78.5 - HYPERLIPIDEMIA, UNSPECIFIED (6) HTN (hypertension) Code(s): I10 - ESSENTIAL (PRIMARY) HYPERTENSION Assessment/Plan (1) Abscess or cellulitis of leg Assessment/Plan: -s/p debridement -ID managing, continue zosyn -full course per ID, may need SNF placement Code(s): L02.419 - CUTANEOUS ABSCESS OF LIMB, UNSPECIFIED L03.119 - CELLULITIS OF UNSPECIFIED PART OF LIMB (2) Anemia Assessment/Plan: -again with decrease in hgb -however suspect this is secondary to surgery -transfuse, will give lasix between units Code(s): D64.9 - ANEMIA, UNSPECIFIED (3) CHF (congestive heart failure) Assessment/Plan: -had episode of fluid overload with transfusion -lasix may need to be increased Code(s): I50.9 - HEART FAILURE, UNSPECIFIED Qualifiers: Congestive heart failure type: unspecified congestive heart failure type Congestive heart failure chronicity: unspecified congestive heart failure chronicity Qualified Code(s): I50.9 - Heart failure, unspecified (4) Fall Assessment/Plan: -history of fall about two weeks prior to admission -PT consulted -fall risk precautions Code(s): W19.XXXA - UNSPECIFIED FALL, INITIAL ENCOUNTER Qualifiers: Encounter type: initial encounter Qualified Code(s): W19.XXXA - Unspecified fall, initial encounter (5) HLD (hyperlipidemia) Assessment/Plan: -continue trilipix Code(s): E78.5 - HYPERLIPIDEMIA, UNSPECIFIED (6) HTN (hypertension) Assessment/Plan: -improved today -cardiology note reviewed -amlodipine decreased secondary to swelling -toprol changed to xl form -clonidine patch started this admission Code(s): I10 - ESSENTIAL (PRIMARY) HYPERTENSION
--- NOTE | 2016-10-03 18:09 | PN ---
Progress Note (short form) - Note Progress Note: Chief Complaint: chf History of Present Illness: no cp, palps, sob. Current Medications Acetaminophen (Tylenol -) 650 mg PO Q4H PRN PRN Reason: FEVER OR PAIN Last Admin: 10/02/16 21:33 Dose: 650 mg Allopurinol (Zyloprim -) 100 mg PO DAILY [facility] Last Admin: 10/03/16 10:19 Dose: 100 mg Amlodipine Besylate (Norvasc -) 5 mg PO DAILY [facility] Last Admin: 10/03/16 10:19 Dose: 5 mg Citalopram Hydrobromide (Celexa -) 20 mg PO DAILY [facility] Last Admin: 10/03/16 10:19 Dose: 20 mg Clonidine HCl (Catapres Tts Patch -) 0.1 mg TD Q7D@1000 [facility] Last Admin: 10/01/16 17:29 Dose: 0.1 mg Collagenase (Santyl -) 1 applic TP DAILY [facility] Last Admin: 10/03/16 15:46 Dose: 1 applic Cyanocobalamin (Vitamin B12 -) 1,000 mcg PO DAILY [facility] Last Admin: 10/03/16 10:19 Dose: 1,000 mcg Docusate Sodium (Colace -) 100 mg PO DAILY [facility] Last Admin: 10/03/16 10:19 Dose: 100 mg Fenofibric Acid (Trilipix -) 135 mg PO DAILY [facility] Last Admin: 10/03/16 10:20 Dose: 135 mg Ferrous Sulfate (Feosol -) 325 mg PO DAILY@0800 [facility] Last Admin: 10/03/16 08:30 Dose: 325 mg Folic Acid (Folic Acid -) 1 mg PO DAILY [facility] Last Admin: 10/03/16 10:20 Dose: 1 mg Furosemide (Lasix -) 20 mg PO Q2D@1000 [facility] Last Admin: 10/02/16 09:36 Dose: 20 mg Furosemide (Lasix -) 40 mg PO Q2D@1000 [facility] Last Admin: 10/03/16 10:23 Dose: 40 mg Lactated Ringer's (Lactated Ringers Solution) 1,000 mls @ 75 mls/hr IV ASDIR [facility] Last Admin: 10/03/16 15:16 Dose: Not Given Piperacillin Sod/Tazobactam Sod (Zosyn 3.375gm Ivpb (Pre-Docked)) 50 mls @ 100 mls/hr IVPB Q8H-IV [facility] Last Admin: 10/03/16 16:57 Dose: 100 mls/hr Sodium Chloride (Normal Saline -) 1,000 mls @ 42 mls/hr IV ASDIR [facility] Last Admin: 10/03/16 15:16 Dose: Not Given Lactobacillus Acidophilus (Bacid -) 1 tab PO DAILY [facility] Last Admin: 10/03/16 10:19 Dose: 1 tab Magnesium Chloride (Slow-Mag -) 128 mg PO DAILY [facility] Last Admin: 10/03/16 10:39 Dose: 128 mg Metoprolol Succinate (Toprol Xl -) 50 mg PO BID [facility] Last Admin: 10/03/16 10:19 Dose: 50 mg Multivitamins/Minerals/Vitamin C (Tab-A-Vit -) 1 tab PO DAILY [facility] Last Admin: 10/03/16 10:19 Dose: 1 tab Ondansetron HCl (Zofran Injection) 4 mg IVPB Q6H PRN PRN Reason: NAUSEA Polyethylene Glycol (Miralax (For Daily Use) -) 17 gm PO DAILY [facility] Last Admin: 10/03/16 10:58 Dose: Not Given Potassium Phos/Sodium Phos (Phos-Nak Packet -) 1 packet PO TID [facility] Last Admin: 10/03/16 13:55 Dose: 1 packet Ranitidine HCl (Zantac -) 150 mg PO BID [facility] Last Admin: 10/03/16 10:19 Dose: 150 mg Vital Signs - 24 hr 10/02/16 10/03/16 10/03/16 23:28 02:00 06:00 Temperature 98 F 97.7 F 97.5 F L Pulse Rate 67 63 60 Respiratory 18 17 20 Rate Blood Pressure 146/70 142/81 151/73 O2 Sat by Pulse Oximetry (%) 10/03/16 10/03/16 10/03/16 09:00 09:09 13:33 Temperature 99 F 98.5 F Pulse Rate 60 61 Respiratory 18 Rate Blood Pressure 153/69 124/53 O2 Sat by Pulse 99 Oximetry (%) 10/03/16 17:09 Temperature 98 F Pulse Rate 62 Respiratory 19 Rate Blood Pressure 145/68 O2 Sat by Pulse Oximetry (%) Intake & Output 10/01/16 10/02/16 10/03/16 10/04/16 07:59 07:59 07:59 07:59 Intake Total 1690 1350 2516 700 Output Total 10 2 Balance 1680 1348 2516 700 Constitutional: Yes: Well Nourished, No Distress, Calm Cardiovascular: Yes: Regular Rate and Rhythm, JVD (possibly), S1, S2. No: Gallop, Murmur Respiratory: Yes: Regular, bibasilar dullness. No: Accessory Muscle Use, Rales , Wheezes Extremities: No: Cold Edema: No ((L pretib wrapped)), 1+ edema of dependent portion of LLE Neurological: Yes: Alert, Oriented Psychiatric: No: Agitated Labs: CBC, BMP 10/03/16 07:30 10/03/16 07:30 Assessment/Plan Echo 06/2016: Mod LVH with basal septal thickening. Mod MR/TR/ trace-mild AR. RVSP 40-50. Assessment/Plan 89 year old female hx htn, hld, ppm (medtronic), ckd, dchf/venous insuff/le edema sent to ER for labs showing hgb in 6's. chronic diast CHF, chronic venous ins'y/cellulitis: -once chf 06/30 -pt with chronic le edema, wt near baseline (low 140s lbs) and pt says le edema is better than usual -c/o'd sob with PRBCs transfusion--s/p lasix 20 IVP--sx improved -cxr 09/29 with suspicion of vasc congestion and joni b lines, and ? pleural eff/parenchymal dz L base retrocardiac region -denies sob today, ? jvd on exam, lungs clear -10/01: rpt cxr today ordered (pending). lasix 20mg IVP x 1. -10/02. Na increased. resume home lasix regimen: 20QD/40QD ALT, INCR TO 40 QD WHEN SWELLING WORSE htn: -targeting sbp <160 here given advanced age -bp's here running 150s-180s -amlod dose incr'd 08/30 for hi bp's in hosp--suspect will worsen chronic LE swelling with risk of recurrent cellulitis/hospitalizations -10/01 elevated bp's --> decr amlodipine back to 5mg qd, changed lopressor to toprol for better 24 hr coverage, added clonidine 0.1mg patch, +/- hydralazine later prn - monitor for improvement in bp. -no RAAS blockers given h/o hyperkalemia hld: -on trilipix, cont home regimen ppm: -normal check in office 02/2016, normal fcn on ecg 08/30-- continue routine outpt checks ckd: -cr near baseline, monitor with lasix anemia: -here 08/30 with severe anemia with hgb in 6s -egd/foc unrevealing then, heme ?'d MDS dx--was for outpt f/u -again anemic now, req'd 2 U PRBCs -per pmd, heme
[2016-10-04] MEDS: SODIUM CHLORIDE 1,000 ML IV SCH (01:22)
[2016-10-04] MEDS: PIPERACILLIN/TAZOB 3.375 GM 50 ML IVPB SCH ×3 (01:22→17:16)
[2016-10-04] MEDS: NAPH,MB-DB/K PH,MBDB POWDER PACKET PO SCH ×3 (06:05→21:27)
[2016-10-04 08:06] LABS: BASOPHIL 1.1 % (0-2.0); EOSINOPHIL 4.4 % (0-4.5); MCH 32.6 pg (25.7-33.7); MEAN CELL VOLUME 93.1 fl (80-96); MEAN PLT VOLUME 8.5 fl (7.5-11.1); NEUTROPHILS 61.5 % (42.8-82.8); PLATELET COUNT 162 K/MM3 (134-434); RDW 21.3 % (11.6-15.6); WHITE BLOOD COUNT 7.1 K/mm3 (4.0-10.0)
[2016-10-04] MEDS: FERROUS SO4 325 MG TABLET (FP) PO SCH (08:23)
[2016-10-04 09:00] LABS: CALCIUM 8.8 mg/dL (8.5-10.1); CREATININE 0.7 mg/dL (0.55-1.02); PHOSPHOROUS 3.1 mg/dL (2.5-4.9)
[2016-10-04 09:01] LABS: MAGNESIUM 1.9 mg/dL (1.8-2.4)
[2016-10-04] MEDS ORDERED: PT OWN MED DRAWER 7, Y5N ONE (09:43)
[2016-10-04] MEDS: LACTOBACILLUS ACIDOPHILUS 1 EACH TAB (FP) PO SCH (09:54)
[2016-10-04] MEDS: MAGNESIUM CL 64 MG TABLET.SA PO SCH (09:54)
[2016-10-04] MEDS: ALLOPURINOL 100 MG TABLET (FP) PO SCH (09:54)
[2016-10-04] MEDS: FUROSEMIDE 20 MG TABLET (FP) PO SCH (09:54)
[2016-10-04] MEDS: FOLIC ACID 1 MG TABLET (FP) PO SCH (09:54)
[2016-10-04] MEDS: CYANOCOBALAMIN 1,000 MCG TABLET (FP) PO SCH (09:54)
[2016-10-04] MEDS: RANITIDINE HCL 150 MG TABLET (FP) PO SCH ×2 (09:54→21:27)
[2016-10-04] MEDS: MULTIVITAMINS (DAILY MVI) TABLET (FP) PO SCH (09:54)
[2016-10-04] MEDS: POLYETHYLENE GLYCOL 3350 119 GM BTL PO SCH (09:55)
[2016-10-04] MEDS: amLODIPine BESYLATE 5 MG TABLET (FP) PO SCH (09:55)
[2016-10-04] MEDS: METOPROLOL SUCCINATE 50 MG TAB.SR.24H (FP) PO SCH ×2 (09:55→21:27)
[2016-10-04] MEDS: FENOFIBRIC ACID 135 MG CAP PO SCH (09:55)
[2016-10-04] MEDS: CITALOPRAM HYDROBROMIDE 20 MG TABLET (FP) PO SCH (09:55)
[2016-10-04] MEDS: DOCUSATE SODIUM 100 MG CAPSULE (FP) PO SCH (09:55)
[2016-10-04] MEDS: COLLAGENASE CLOSTRIDIUM HIST. 30 GRAMS TUBE TP SCH (09:56)
--- NOTE | 2016-10-04 12:09 | PN ---
Progress Note, Physician Chief Complaint: Ms Desouza says she is doing so so today. Says she is hurting everywhere. Does not give me any further subjective - Current Medication List Current Medications: Active Medications Acetaminophen (Tylenol -) 650 mg PO Q4H PRN PRN Reason: FEVER OR PAIN Last Admin: 10/02/16 21:33 Dose: 650 mg Allopurinol (Zyloprim -) 100 mg PO DAILY [facility] Last Admin: 10/04/16 09:54 Dose: 100 mg Amlodipine Besylate (Norvasc -) 5 mg PO DAILY [facility] Last Admin: 10/04/16 09:55 Dose: 5 mg Citalopram Hydrobromide (Celexa -) 20 mg PO DAILY [facility] Last Admin: 10/04/16 09:55 Dose: 20 mg Clonidine HCl (Catapres Tts Patch -) 0.1 mg TD Q7D@1000 [facility] Last Admin: 10/01/16 17:29 Dose: 0.1 mg Collagenase (Santyl -) 1 applic TP DAILY [facility] Last Admin: 10/04/16 09:56 Dose: 1 applic Cyanocobalamin (Vitamin B12 -) 1,000 mcg PO DAILY [facility] Last Admin: 10/04/16 09:54 Dose: 1,000 mcg Docusate Sodium (Colace -) 100 mg PO DAILY [facility] Last Admin: 10/04/16 09:55 Dose: 100 mg Fenofibric Acid (Trilipix -) 135 mg PO DAILY [facility] Last Admin: 10/04/16 09:55 Dose: 135 mg Ferrous Sulfate (Feosol -) 325 mg PO DAILY@0800 [facility] Last Admin: 10/04/16 08:23 Dose: 325 mg Folic Acid (Folic Acid -) 1 mg PO DAILY [facility] Last Admin: 10/04/16 09:54 Dose: 1 mg Furosemide (Lasix -) 20 mg PO Q2D@1000 [facility] Last Admin: 10/04/16 09:54 Dose: 20 mg Furosemide (Lasix -) 40 mg PO Q2D@1000 [facility] Last Admin: 10/03/16 10:23 Dose: 40 mg Lactated Ringer's (Lactated Ringers Solution) 1,000 mls @ 75 mls/hr IV ASDIR [facility] Last Admin: 10/03/16 15:16 Dose: Not Given Piperacillin Sod/Tazobactam Sod (Zosyn 3.375gm Ivpb (Pre-Docked)) 50 mls @ 100 mls/hr IVPB Q8H-IV [facility] Last Admin: 10/04/16 09:53 Dose: 100 mls/hr Sodium Chloride (Normal Saline -) 1,000 mls @ 42 mls/hr IV ASDIR [facility] Last Admin: 10/04/16 01:22 Dose: 42 mls/hr Lactobacillus Acidophilus (Bacid -) 1 tab PO DAILY [facility] Last Admin: 10/04/16 09:54 Dose: 1 tab Magnesium Chloride (Slow-Mag -) 128 mg PO DAILY [facility] Last Admin: 10/04/16 09:54 Dose: 128 mg Metoprolol Succinate (Toprol Xl -) 50 mg PO BID [facility] Last Admin: 10/04/16 09:55 Dose: 50 mg Multivitamins/Minerals/Vitamin C (Tab-A-Vit -) 1 tab PO DAILY [facility] Last Admin: 10/04/16 09:54 Dose: 1 tab Ondansetron HCl (Zofran Injection) 4 mg IVPB Q6H PRN PRN Reason: NAUSEA Polyethylene Glycol (Miralax (For Daily Use) -) 17 gm PO DAILY [facility] Last Admin: 10/04/16 09:55 Dose: 17 gm Potassium Phos/Sodium Phos (Phos-Nak Packet -) 1 packet PO TID [facility] Last Admin: 10/04/16 06:05 Dose: 1 packet Ranitidine HCl (Zantac -) 150 mg PO BID [facility] Last Admin: 10/04/16 09:54 Dose: 150 mg - Objective Vital Signs: Vital Signs Temperature 98.2 F 10/04/16 08:00 Pulse Rate 62 10/04/16 08:00 Respiratory Rate 18 10/04/16 08:00 Blood Pressure 171/66 10/04/16 08:00 O2 Sat by Pulse Oximetry (%) 99 10/04/16 09:00 Constitutional: Yes: Well Nourished, No Distress, Calm Cardiovascular: Yes: Regular Rate and Rhythm. No: Gallop, Murmur, Rub Respiratory: Yes: Regular, CTA Bilaterally. No: Rales, Rhonchi, Wheezes Gastrointestinal: Yes: Normal Bowel Sounds, Soft. No: Distention, Tenderness Extremities: Yes: Other (wrapped) Edema: Yes Edema: LLE: Trace, RLE: Trace Labs: CBC, BMP 10/04/16 07:25 10/04/16 07:25 INR, PTT INR 1.28 (0.82-1.09) H 09/28/16 14:00 Problem List - Problems (1) Abscess or cellulitis of leg Code(s): L02.419 - CUTANEOUS ABSCESS OF LIMB, UNSPECIFIED L03.119 - CELLULITIS OF UNSPECIFIED PART OF LIMB (2) Anemia Code(s): D64.9 - ANEMIA, UNSPECIFIED (3) CHF (congestive heart failure) Code(s): I50.9 - HEART FAILURE, UNSPECIFIED Qualifiers: Congestive heart failure type: unspecified congestive heart failure type Congestive heart failure chronicity: unspecified congestive heart failure chronicity Qualified Code(s): I50.9 - Heart failure, unspecified (4) Fall Code(s): W19.XXXA - UNSPECIFIED FALL, INITIAL ENCOUNTER Qualifiers: Encounter type: initial encounter Qualified Code(s): W19.XXXA - Unspecified fall, initial encounter (5) HLD (hyperlipidemia) Code(s): E78.5 - HYPERLIPIDEMIA, UNSPECIFIED (6) HTN (hypertension) Code(s): I10 - ESSENTIAL (PRIMARY) HYPERTENSION Assessment/Plan (1) Abscess or cellulitis of leg Assessment/Plan: -s/p debridement -ID managing, continue zosyn -full course per ID, patient planned to go home with [facility] Code(s): L02.419 - CUTANEOUS ABSCESS OF LIMB, UNSPECIFIED L03.119 - CELLULITIS OF UNSPECIFIED PART OF LIMB (2) Anemia Assessment/Plan: -good response to transfusion -patient with bleeding and hematomas prior, suspect this is area of blood loss -monitor H/H -if stable, can discharge home -however if drops, will need to involve hematology Code(s): D64.9 - ANEMIA, UNSPECIFIED (3) CHF (congestive heart failure) Assessment/Plan: -cardiology following -continue lasix Code(s): I50.9 - HEART FAILURE, UNSPECIFIED Qualifiers: Congestive heart failure type: unspecified congestive heart failure type Congestive heart failure chronicity: unspecified congestive heart failure chronicity Qualified Code(s): I50.9 - Heart failure, unspecified (4) Fall Assessment/Plan: -history of fall about two weeks prior to admission -PT following -fall risk precautions Code(s): W19.XXXA - UNSPECIFIED FALL, INITIAL ENCOUNTER Qualifiers: Encounter type: initial encounter Qualified Code(s): W19.XXXA - Unspecified fall, initial encounter (5) HLD (hyperlipidemia) Assessment/Plan: -continue trilipix Code(s): E78.5 - HYPERLIPIDEMIA, UNSPECIFIED (6) HTN (hypertension) Assessment/Plan: -elevated today, but suspect secondary to transfusion -continue current regimen -if remains elevated, will need further adjustment of medication Code(s): I10 - ESSENTIAL (PRIMARY) HYPERTENSION
--- NOTE | 2016-10-04 15:58 | PN ---
Progress Note, Physician History of Present Illness: patient stable wound opened clots noted in the wound clots removed - Current Medication List Current Medications: Active Medications Acetaminophen (Tylenol -) 650 mg PO Q4H PRN PRN Reason: FEVER OR PAIN Last Admin: 10/02/16 21:33 Dose: 650 mg Allopurinol (Zyloprim -) 100 mg PO DAILY [facility] Last Admin: 10/04/16 09:54 Dose: 100 mg Amlodipine Besylate (Norvasc -) 5 mg PO DAILY [facility] Last Admin: 10/04/16 09:55 Dose: 5 mg Citalopram Hydrobromide (Celexa -) 20 mg PO DAILY [facility] Last Admin: 10/04/16 09:55 Dose: 20 mg Clonidine HCl (Catapres Tts Patch -) 0.1 mg TD Q7D@1000 [facility] Last Admin: 10/01/16 17:29 Dose: 0.1 mg Collagenase (Santyl -) 1 applic TP DAILY [facility] Last Admin: 10/04/16 09:56 Dose: 1 applic Cyanocobalamin (Vitamin B12 -) 1,000 mcg PO DAILY [facility] Last Admin: 10/04/16 09:54 Dose: 1,000 mcg Docusate Sodium (Colace -) 100 mg PO DAILY [facility] Last Admin: 10/04/16 09:55 Dose: 100 mg Fenofibric Acid (Trilipix -) 135 mg PO DAILY [facility] Last Admin: 10/04/16 09:55 Dose: 135 mg Ferrous Sulfate (Feosol -) 325 mg PO DAILY@0800 [facility] Last Admin: 10/04/16 08:23 Dose: 325 mg Folic Acid (Folic Acid -) 1 mg PO DAILY [facility] Last Admin: 10/04/16 09:54 Dose: 1 mg Furosemide (Lasix -) 20 mg PO Q2D@1000 [facility] Last Admin: 10/04/16 09:54 Dose: 20 mg Furosemide (Lasix -) 40 mg PO Q2D@1000 [facility] Last Admin: 10/03/16 10:23 Dose: 40 mg Lactated Ringer's (Lactated Ringers Solution) 1,000 mls @ 75 mls/hr IV ASDIR [facility] Last Admin: 10/03/16 15:16 Dose: Not Given Piperacillin Sod/Tazobactam Sod (Zosyn 3.375gm Ivpb (Pre-Docked)) 50 mls @ 100 mls/hr IVPB Q8H-IV [facility] Last Admin: 10/04/16 09:53 Dose: 100 mls/hr Sodium Chloride (Normal Saline -) 1,000 mls @ 42 mls/hr IV ASDIR [facility] Last Admin: 10/04/16 01:22 Dose: 42 mls/hr Lactobacillus Acidophilus (Bacid -) 1 tab PO DAILY [facility] Last Admin: 10/04/16 09:54 Dose: 1 tab Magnesium Chloride (Slow-Mag -) 128 mg PO DAILY [facility] Last Admin: 10/04/16 09:54 Dose: 128 mg Metoprolol Succinate (Toprol Xl -) 50 mg PO BID [facility] Last Admin: 10/04/16 09:55 Dose: 50 mg Multivitamins/Minerals/Vitamin C (Tab-A-Vit -) 1 tab PO DAILY [facility] Last Admin: 10/04/16 09:54 Dose: 1 tab Ondansetron HCl (Zofran Injection) 4 mg IVPB Q6H PRN PRN Reason: NAUSEA Polyethylene Glycol (Miralax (For Daily Use) -) 17 gm PO DAILY [facility] Last Admin: 10/04/16 09:55 Dose: 17 gm Potassium Phos/Sodium Phos (Phos-Nak Packet -) 1 packet PO TID [facility] Last Admin: 10/04/16 13:06 Dose: 1 packet Ranitidine HCl (Zantac -) 150 mg PO BID [facility] Last Admin: 10/04/16 09:54 Dose: 150 mg - Objective Vital Signs: Vital Signs Temperature 97.9 F 10/04/16 15:22 Pulse Rate 61 10/04/16 15:22 Respiratory Rate 18 10/04/16 08:00 Blood Pressure 171/66 10/04/16 08:00 O2 Sat by Pulse Oximetry (%) 99 10/04/16 09:00 Constitutional: Yes: No Distress, Calm Neck: Yes: Supple Cardiovascular: Yes: Regular Rate and Rhythm Respiratory: Yes: Regular Gastrointestinal: Yes: Normal Bowel Sounds, Soft Extremities: Yes: Other Wound/Incision: Yes: Dressing Removed, Bleeding, Other Neurological: Yes: Alert, Oriented Psychiatric: Yes: Alert Labs: CBC, BMP 10/04/16 07:25 10/04/16 07:25 INR, PTT INR 1.28 (0.82-1.09) H 01/14/17 14:00 Assessment/Plan Problem List - Problems (1) Abscess or cellulitis of leg Code(s): L02.419 - CUTANEOUS ABSCESS OF LIMB, UNSPECIFIED L03.119 - CELLULITIS OF UNSPECIFIED PART OF LIMB (2) Anemia Code(s): D64.9 - ANEMIA, UNSPECIFIED (3) CHF (congestive heart failure)y Code(s): I50.9 - HEART FAILURE, UNSPECIFIED Qualifiers: Congestive heart failure type: unspecified congestive heart failure type Congestive heart failure chronicity: unspecified congestive heart failure chronicity Qualified Code(s): I50.9 - Heart failure, unspecified (4) Fall Code(s): W19.XXXA - UNSPECIFIED FALL, INITIAL ENCOUNTER Qualifiers: Encounter type: initial encounter Qualified Code(s): W19.XXXA - Unspecified fall, initial encounter (5) HLD (hyperlipidemia) Code(s): E78.5 - HYPERLIPIDEMIA, UNSPECIFIED (6) HTN (hypertension) Code(s): I10 - ESSENTIAL (PRIMARY) HYPERTENSION plan ct abx dressing removed clots evacuated from the wound packing the wound
--- NOTE | 2016-10-04 17:28 | PN ---
Progress Note (short form) - Note Progress Note: Pt dressing changed today Vital Signs Period Temp Pulse Resp BP Sys/Cohen Pulse Ox Last 24 Hr 97.7 F-98.2 F 61-62 16-18 135-171/57-66 99-100 PE: GEN: Alert LLE: hematoma evacuated today underneath tissue flap. This area was repacked with kerlix and xeroform to superficial open area. Kerlix and jesus wrap applied. Patient not on any blood thinners Problem List - Problems (1) Abscess or cellulitis of leg Assessment/Plan: s/p evaucation of hematoma/abscess. repacked wound to form clot and applied pressure dressing and jesus wrap. If rebleeds may needs to place sugical underneath wound skin flap. Code(s): L02.419 - CUTANEOUS ABSCESS OF LIMB, UNSPECIFIED L03.119 - CELLULITIS OF UNSPECIFIED PART OF LIMB
[2016-10-05] MEDS: PIPERACILLIN/TAZOB 3.375 GM 50 ML IVPB SCH ×3 (01:53→17:10)
[2016-10-05] MEDS: SODIUM CHLORIDE 1,000 ML IV SCH ×3 (01:54→21:13)
[2016-10-05] MEDS: NAPH,MB-DB/K PH,MBDB POWDER PACKET PO SCH ×3 (06:00→21:13)
--- NOTE | 2016-10-05 08:20 | PN ---
[id number]. PATIENT WITH LT LEG ABSCESS / S/P SURGICAL DRAINAGE & PACKING / ON IV AB <> ZOSYN <> FOLLOWED BY I.D. Selected Entries 10/05/16 05:37 Temperature 98.0 F Respiratory 20 Rate Blood Pressure 155/71 Laboratory Tests 10/04/16 10/04/16 07:25 07:25 WBC 7.1 RBC 2.87 L D Hgb 9.3 L D Hct 26.7 L D Plt Count 162 Sodium 141 Potassium 4.2 Chloride 98 Carbon Dioxide 39 H Anion Gap 4 L BUN 31 H Creatinine 0.7 Random Glucose 79 Calcium 8.8 Phosphorus 3.1 Magnesium 1.9 P/E <> AWAKE / ALERT HEENT <> NECK SUPPLE / CAROTIDS 2 + COR <> S 1 S 2 / NO M / NO G CHEST <> FEW SCATTERED RHONCHI ABD <> SOFT / NONTENDER EXT <> RT LE WRAPPED WITH GAUZE DRESSING <> SURGERY TO FOLLOW. IMP : LLE ABSCESS ANEMIA BLOOD LOSS S/P FALL CHF HTN SSS / PPM PLAN <> FOLLOW LABS ' SURGERY FOLLOWUP. ID FOLLOW UP CONTINUE AB CARDIAC MEDS PER DR SOSA / BP STABLE POSSIBLE SNF REHAB.
[2016-10-05 09:03] LABS: BASOPHIL 0.9 % (0-2.0); EOSINOPHIL 3.9 % (0-4.5); MCHC 33.7 g/dl (32.0-36.0); MEAN CELL VOLUME 94.9 fl (80-96); MEAN PLT VOLUME 7.8 fl (7.5-11.1); NEUTROPHILS 60.8 % (42.8-82.8); PLATELET COUNT 207 K/MM3 (134-434); RDW 20.8 % (11.6-15.6); WHITE BLOOD COUNT 7.8 K/mm3 (4.0-10.0)
[2016-10-05 10:14] LABS: CALCIUM 8.8 mg/dL (8.5-10.1); CREATININE 0.6 mg/dL (0.55-1.02); MAGNESIUM 1.9 mg/dL (1.8-2.4); PHOSPHOROUS 2.4 mg/dL (2.5-4.9)
[2016-10-05] MEDS: amLODIPine BESYLATE 5 MG TABLET (FP) PO SCH (10:31)
[2016-10-05] MEDS: MULTIVITAMINS (DAILY MVI) TABLET (FP) PO SCH (10:31)
[2016-10-05] MEDS: CYANOCOBALAMIN 1,000 MCG TABLET (FP) PO SCH (10:31)
[2016-10-05] MEDS: LACTOBACILLUS ACIDOPHILUS 1 EACH TAB (FP) PO SCH (10:31)
[2016-10-05] MEDS: DOCUSATE SODIUM 100 MG CAPSULE (FP) PO SCH (10:31)
[2016-10-05] MEDS: FENOFIBRIC ACID 135 MG CAP PO SCH (10:31)
[2016-10-05] MEDS: FOLIC ACID 1 MG TABLET (FP) PO SCH (10:31)
[2016-10-05] MEDS: ALLOPURINOL 100 MG TABLET (FP) PO SCH (10:31)
[2016-10-05] MEDS: RANITIDINE HCL 150 MG TABLET (FP) PO SCH ×2 (10:31→21:13)
[2016-10-05] MEDS: CITALOPRAM HYDROBROMIDE 20 MG TABLET (FP) PO SCH (10:32)
[2016-10-05] MEDS: MAGNESIUM CL 64 MG TABLET.SA PO SCH (10:32)
[2016-10-05] MEDS: METOPROLOL SUCCINATE 50 MG TAB.SR.24H (FP) PO SCH ×2 (10:32→21:12)
[2016-10-05] MEDS: FERROUS SO4 325 MG TABLET (FP) PO SCH (10:32)
[2016-10-05] MEDS: COLLAGENASE CLOSTRIDIUM HIST. 30 GRAMS TUBE TP SCH (10:33)
[2016-10-05] MEDS: POLYETHYLENE GLYCOL 3350 119 GM BTL PO SCH (10:33)
[2016-10-05] MEDS: FUROSEMIDE 40 MG TABLET (FP) PO SCH (10:36)
--- NOTE | 2016-10-05 12:25 | PN ---
Progress Note (short form) - Note Progress Note: Vascular surgery- Dr. Schrader Patient seen and dressing changed. Patient resting comfortably. No bleeding overnight per nurse. Last Vital Signs Temp Pulse Resp BP Pulse Ox 98.0 F 61 20 155/71 96 10/05/16 05:37 10/05/16 05:37 10/05/16 05:37 10/05/16 05:37 10/04/16 21:00 PE: Gen: NAD LLE: dressing removed, some bleeding when packing removed, repacked with kerlex , xeroform applied to superficial open skin, pressure dressing with 4x4, kerlex and REDDY wrap, patient tolerated dressing change well Problem List - Problems (1) Abscess or cellulitis of leg Assessment/Plan: s/p LLE debridement 09/30 Patient seen for dressing change today, dressing removed and wound repacked, redressed Monitor for bleeding from wound Code(s): L02.419 - CUTANEOUS ABSCESS OF LIMB, UNSPECIFIED L03.119 - CELLULITIS OF UNSPECIFIED PART OF LIMB
--- NOTE | 2016-10-05 13:56 | PN ---
Progress Note, Physician Chief Complaint: chf History of Present Illness: denies sob, orthopnea, chest heaviness, palpit - Current Medication List Current Medications: Active Medications Acetaminophen (Tylenol -) 650 mg PO Q4H PRN PRN Reason: FEVER OR PAIN Last Admin: 10/02/16 21:33 Dose: 650 mg Allopurinol (Zyloprim -) 100 mg PO DAILY [facility] Last Admin: 10/05/16 10:31 Dose: 100 mg Amlodipine Besylate (Norvasc -) 5 mg PO DAILY [facility] Last Admin: 10/05/16 10:31 Dose: 5 mg Citalopram Hydrobromide (Celexa -) 20 mg PO DAILY [facility] Last Admin: 10/05/16 10:32 Dose: 20 mg Clonidine HCl (Catapres Tts Patch -) 0.1 mg TD Q7D@1000 [facility] Last Admin: 10/01/16 17:29 Dose: 0.1 mg Collagenase (Santyl -) 1 applic TP DAILY [facility] Last Admin: 10/05/16 10:33 Dose: 1 applic Cyanocobalamin (Vitamin B12 -) 1,000 mcg PO DAILY [facility] Last Admin: 10/05/16 10:31 Dose: 1,000 mcg Docusate Sodium (Colace -) 100 mg PO DAILY [facility] Last Admin: 10/05/16 10:31 Dose: 100 mg Fenofibric Acid (Trilipix -) 135 mg PO DAILY [facility] Last Admin: 10/05/16 10:31 Dose: 135 mg Ferrous Sulfate (Feosol -) 325 mg PO DAILY@0800 [facility] Last Admin: 10/05/16 10:32 Dose: 325 mg Folic Acid (Folic Acid -) 1 mg PO DAILY [facility] Last Admin: 10/05/16 10:31 Dose: 1 mg Furosemide (Lasix -) 20 mg PO Q2D@1000 [facility] Last Admin: 10/04/16 09:54 Dose: 20 mg Furosemide (Lasix -) 40 mg PO Q2D@1000 [facility] Last Admin: 10/05/16 10:36 Dose: 40 mg Lactated Ringer's (Lactated Ringers Solution) 1,000 mls @ 75 mls/hr IV ASDIR [facility] Last Admin: 10/03/16 15:16 Dose: Not Given Piperacillin Sod/Tazobactam Sod (Zosyn 3.375gm Ivpb (Pre-Docked)) 50 mls @ 100 mls/hr IVPB Q8H-IV [facility] Last Admin: 10/05/16 10:33 Dose: 100 mls/hr Sodium Chloride (Normal Saline -) 1,000 mls @ 42 mls/hr IV ASDIR [facility] Last Admin: 10/05/16 01:54 Dose: 42 mls/hr Lactobacillus Acidophilus (Bacid -) 1 tab PO DAILY [facility] Last Admin: 10/05/16 10:31 Dose: 1 tab Magnesium Chloride (Slow-Mag -) 128 mg PO DAILY [facility] Last Admin: 10/05/16 10:32 Dose: 128 mg Metoprolol Succinate (Toprol Xl -) 50 mg PO BID [facility] Last Admin: 10/05/16 10:32 Dose: 50 mg Multivitamins/Minerals/Vitamin C (Tab-A-Vit -) 1 tab PO DAILY [facility] Last Admin: 10/05/16 10:31 Dose: 1 tab Ondansetron HCl (Zofran Injection) 4 mg IVPB Q6H PRN PRN Reason: NAUSEA Polyethylene Glycol (Miralax (For Daily Use) -) 17 gm PO DAILY [facility] Last Admin: 10/05/16 10:33 Dose: 17 gm Potassium Phos/Sodium Phos (Phos-Nak Packet -) 1 packet PO TID [facility] Last Admin: 10/05/16 06:00 Dose: 1 packet Ranitidine HCl (Zantac -) 150 mg PO BID [facility] Last Admin: 10/05/16 10:31 Dose: 150 mg - Objective Vital Signs: Vital Signs Temperature 98.0 F 10/05/16 05:37 Pulse Rate 63 10/05/16 10:00 Respiratory Rate 18 10/05/16 10:00 Blood Pressure 154/76 10/05/16 10:00 O2 Sat by Pulse Oximetry (%) 97 10/05/16 09:00 Constitutional: Yes: Well Nourished, No Distress, Calm Cardiovascular: Yes: Regular Rate and Rhythm, S1, S2. No: JVD, Gallop, Murmur Respiratory: Yes: Regular, CTA Bilaterally (anteriorly). No: Accessory Muscle Use Extremities: No: Cold Edema: No Neurological: Yes: Alert. No: Seizure Psychiatric: No: Agitated Labs: CBC, BMP 10/05/16 07:30 10/05/16 07:30 INR, PTT INR 1.28 (0.82-1.09) H 09/28/16 14:00 Assessment/Plan Echo 06/2016: Mod LVH with basal septal thickening. Mod MR/TR/ trace-mild AR. RVSP 40-50. Assessment/Plan 89 year old female hx htn, hld, ppm (medtronic), ckd, dchf/venous insuff/le edema sent to ER for labs showing hgb in 6's. chronic diast CHF, chronic venous ins'y/cellulitis: -once chf 06/30 -pt with chronic le edema, wt near baseline (low 140s lbs) and pt says le edema is better than usual -c/o'd sob with PRBCs transfusion--s/p lasix 20 IVP--sx improved -cxr 09/29 with suspicion of vasc congestion and joni b lines, and ? pleural eff/parenchymal dz L base retrocardiac region -rpt CXR 10/01 with L effusion likely -10/02. resumed home lasix regimen: 20QD/40QD ALT, INCR TO 40 QD WHEN SWELLING WORSE -10/05: continues to deny sob; bun/creat and bicarb steadily improving; will get PA and lateral CXR to better evaluate L base/effusion htn: -targeting sbp <160 here given advanced age -amlod dose incr'd 08/30 for hi bp's in hosp--suspect will worsen chronic LE swelling with risk of recurrent cellulitis/hospitalizations -10/01 elevated bp's --> decr amlodipine back to 5mg qd, changed lopressor to toprol for better 24 hr coverage, added clonidine 0.1mg patch, +/- hydralazine later prn -bp's remain mostly at target -no RAAS blockers given h/o hyperkalemia hld: -on trilipix, cont home regimen ppm: -normal check in office 02/2016, normal fcn on ecg 08/30-- continue routine outpt checks ckd: -cr near baseline, monitor with lasix anemia: -here 08/30 with severe anemia with hgb in 6s -egd/foc unrevealing then, heme ?'d MDS dx--was for outpt f/u -again anemic now, req'd 2 U PRBCs--H/H stable since -per pmd, heme
--- NOTE | 2016-10-05 15:41 | PN ---
Progress Note, Physician History of Present Illness: patient stable family in the room - Current Medication List Current Medications: Active Medications Acetaminophen (Tylenol -) 650 mg PO Q4H PRN PRN Reason: FEVER OR PAIN Last Admin: 10/02/16 21:33 Dose: 650 mg Allopurinol (Zyloprim -) 100 mg PO DAILY [facility] Last Admin: 10/05/16 10:31 Dose: 100 mg Amlodipine Besylate (Norvasc -) 5 mg PO DAILY [facility] Last Admin: 10/05/16 10:31 Dose: 5 mg Citalopram Hydrobromide (Celexa -) 20 mg PO DAILY [facility] Last Admin: 10/05/16 10:32 Dose: 20 mg Clonidine HCl (Catapres Tts Patch -) 0.1 mg TD Q7D@1000 [facility] Last Admin: 10/01/16 17:29 Dose: 0.1 mg Collagenase (Santyl -) 1 applic TP DAILY [facility] Last Admin: 10/05/16 10:33 Dose: 1 applic Cyanocobalamin (Vitamin B12 -) 1,000 mcg PO DAILY [facility] Last Admin: 10/05/16 10:31 Dose: 1,000 mcg Docusate Sodium (Colace -) 100 mg PO DAILY [facility] Last Admin: 10/05/16 10:31 Dose: 100 mg Fenofibric Acid (Trilipix -) 135 mg PO DAILY [facility] Last Admin: 10/05/16 10:31 Dose: 135 mg Ferrous Sulfate (Feosol -) 325 mg PO DAILY@0800 [facility] Last Admin: 10/05/16 10:32 Dose: 325 mg Folic Acid (Folic Acid -) 1 mg PO DAILY [facility] Last Admin: 10/05/16 10:31 Dose: 1 mg Furosemide (Lasix -) 20 mg PO Q2D@1000 [facility] Last Admin: 10/04/16 09:54 Dose: 20 mg Furosemide (Lasix -) 40 mg PO Q2D@1000 [facility] Last Admin: 10/05/16 10:36 Dose: 40 mg Lactated Ringer's (Lactated Ringers Solution) 1,000 mls @ 75 mls/hr IV ASDIR [facility] Last Admin: 10/03/16 15:16 Dose: Not Given Piperacillin Sod/Tazobactam Sod (Zosyn 3.375gm Ivpb (Pre-Docked)) 50 mls @ 100 mls/hr IVPB Q8H-IV [facility] Last Admin: 10/05/16 10:33 Dose: 100 mls/hr Sodium Chloride (Normal Saline -) 1,000 mls @ 42 mls/hr IV ASDIR [facility] Last Admin: 10/05/16 01:54 Dose: 42 mls/hr Lactobacillus Acidophilus (Bacid -) 1 tab PO DAILY [facility] Last Admin: 10/05/16 10:31 Dose: 1 tab Magnesium Chloride (Slow-Mag -) 128 mg PO DAILY [facility] Last Admin: 10/05/16 10:32 Dose: 128 mg Metoprolol Succinate (Toprol Xl -) 50 mg PO BID [facility] Last Admin: 10/05/16 10:32 Dose: 50 mg Multivitamins/Minerals/Vitamin C (Tab-A-Vit -) 1 tab PO DAILY [facility] Last Admin: 10/05/16 10:31 Dose: 1 tab Ondansetron HCl (Zofran Injection) 4 mg IVPB Q6H PRN PRN Reason: NAUSEA Polyethylene Glycol (Miralax (For Daily Use) -) 17 gm PO DAILY [facility] Last Admin: 10/05/16 10:33 Dose: 17 gm Potassium Phos/Sodium Phos (Phos-Nak Packet -) 1 packet PO TID [facility] Last Admin: 10/05/16 14:56 Dose: 1 packet Ranitidine HCl (Zantac -) 150 mg PO BID [facility] Last Admin: 10/05/16 10:31 Dose: 150 mg - Objective Vital Signs: Vital Signs Temperature 97.8 F 10/05/16 14:00 Pulse Rate 61 10/05/16 14:00 Respiratory Rate 18 10/05/16 14:00 Blood Pressure 138/50 10/05/16 14:00 O2 Sat by Pulse Oximetry (%) 97 10/05/16 09:00 Constitutional: Yes: No Distress, Calm Cardiovascular: Yes: Regular Rate and Rhythm Respiratory: Yes: Regular, CTA Bilaterally Gastrointestinal: Yes: Normal Bowel Sounds, Soft Musculoskeletal: Yes: Other Extremities: Yes: Other Integumentary: Yes: Other Wound/Incision: Yes: Dressing Removed Neurological: Yes: Alert Psychiatric: Yes: Alert Labs: CBC, BMP 10/05/16 07:30 10/05/16 07:30 INR, PTT INR 1.28 (0.82-1.09) H 09/28/16 14:00 Assessment/Plan Problem List - Problems (1) Abscess or cellulitis of leg Code(s): L02.419 - CUTANEOUS ABSCESS OF LIMB, UNSPECIFIED L03.119 - CELLULITIS OF UNSPECIFIED PART OF LIMB (2) Anemia Code(s): D64.9 - ANEMIA, UNSPECIFIED (3) CHF (congestive heart failure)y Code(s): I50.9 - HEART FAILURE, UNSPECIFIED Qualifiers: Congestive heart failure type: unspecified congestive heart failure type Congestive heart failure chronicity: unspecified congestive heart failure chronicity Qualified Code(s): I50.9 - Heart failure, unspecified (4) Fall Code(s): W19.XXXA - UNSPECIFIED FALL, INITIAL ENCOUNTER Qualifiers: Encounter type: initial encounter Qualified Code(s): W19.XXXA - Unspecified fall, initial encounter (5) HLD (hyperlipidemia) Code(s): E78.5 - HYPERLIPIDEMIA, UNSPECIFIED (6) HTN (hypertension) Code(s): I10 - ESSENTIAL (PRIMARY) HYPERTENSION plan ct abx dressing removed clots evacuated from the wound packing the wound will continue watching the wound
[2016-10-05] MEDS: ACETAMINOPHEN 325 MG TABLET (FP) PO PRN (15:51)
[2016-10-06] MEDS: ACETAMINOPHEN 325 MG TABLET (FP) PO PRN (00:32)
[2016-10-06] MEDS: PIPERACILLIN/TAZOB 3.375 GM 50 ML IVPB SCH ×3 (02:32→17:42)
[2016-10-06] MEDS: NAPH,MB-DB/K PH,MBDB POWDER PACKET PO SCH ×3 (06:20→21:49)
[2016-10-06] MEDS: FERROUS SO4 325 MG TABLET (FP) PO SCH (07:56)
--- NOTE | 2016-10-06 08:11 | PN ---
Progress Note (short form) - Note Progress Note: PATIENT STATES SHE HAS NO LEFT LEG PAIN TODAY <> DRESSING DRY. DENIES ANY CP / SOB / PALPITATIONS. TO CONTINUE IV AB PER I.D. Selected Entries Laboratory Tests Selected Entries 10/06/16 05:50 Temperature 98.0 F Pulse Rate 61 Respiratory 20 Rate Blood Pressure 155/63 Laboratory Tests 10/05/16 10/05/16 07:30 07:30 WBC 7.8 RBC 2.90 L Hgb 9.3 L Hct 27.5 L Plt Count 207 D Sodium 139 Potassium 4.0 Chloride 97 L Carbon Dioxide 37 H Anion Gap 5 L BUN 24 H D Creatinine 0.6 P/E <> AWAKE / ALERT / IN NO DISTRESS HEENT <> NECK SUPPLE / CAROTIDS 2 + COR <> S 1 S 2 / NO M / NO G CHEST <> CLEAR P & A . ABD <> SOFT / NONTENDER EXT <> LT LE WRAPPED IN GAUZE DRESSING / DRESSING DRY. IMP : LLE ABSCESS ANEMIA BLOOD LOSS S/P FALL CHF HTN SSS / PPM PLAN <> CONTINUE AB RX PER ID.' SURGERY FOLLOWUP. PT RX / ? SNF REHAB.
[2016-10-06] MEDS ORDERED: PT OWN MED DRAWER 7, Y5N ONE (09:31)
[2016-10-06] MEDS: FENOFIBRIC ACID 135 MG CAP PO SCH (09:33)
[2016-10-06] MEDS: FOLIC ACID 1 MG TABLET (FP) PO SCH (09:33)
[2016-10-06] MEDS: CITALOPRAM HYDROBROMIDE 20 MG TABLET (FP) PO SCH (09:33)
[2016-10-06] MEDS: LACTOBACILLUS ACIDOPHILUS 1 EACH TAB (FP) PO SCH (09:33)
[2016-10-06] MEDS: MULTIVITAMINS (DAILY MVI) TABLET (FP) PO SCH (09:33)
[2016-10-06] MEDS: RANITIDINE HCL 150 MG TABLET (FP) PO SCH ×2 (09:33→21:49)
[2016-10-06] MEDS: ALLOPURINOL 100 MG TABLET (FP) PO SCH (09:34)
[2016-10-06] MEDS: DOCUSATE SODIUM 100 MG CAPSULE (FP) PO SCH (09:34)
[2016-10-06] MEDS: amLODIPine BESYLATE 5 MG TABLET (FP) PO SCH (09:34)
[2016-10-06] MEDS: POLYETHYLENE GLYCOL 3350 119 GM BTL PO SCH (09:34)
[2016-10-06] MEDS: CYANOCOBALAMIN 1,000 MCG TABLET (FP) PO SCH (09:34)
[2016-10-06] MEDS: METOPROLOL SUCCINATE 50 MG TAB.SR.24H (FP) PO SCH ×2 (09:34→21:49)
[2016-10-06] MEDS: MAGNESIUM CL 64 MG TABLET.SA PO SCH (09:35)
[2016-10-06] MEDS: FUROSEMIDE 20 MG TABLET (FP) PO SCH (09:36)
--- NOTE | 2016-10-06 11:20 | PN ---
Progress Note, Physician Chief Complaint: pleural effusion, chf History of Present Illness: comfortable; no sob, orthopnea; no cp, palpit - Current Medication List Current Medications: Active Medications Acetaminophen (Tylenol -) 650 mg PO Q4H PRN PRN Reason: FEVER OR PAIN Last Admin: 10/06/16 00:32 Dose: 650 mg Allopurinol (Zyloprim -) 100 mg PO DAILY [facility] Last Admin: 10/06/16 09:34 Dose: 100 mg Amlodipine Besylate (Norvasc -) 5 mg PO DAILY [facility] Last Admin: 10/06/16 09:34 Dose: 5 mg Citalopram Hydrobromide (Celexa -) 20 mg PO DAILY [facility] Last Admin: 10/06/16 09:33 Dose: 20 mg Clonidine HCl (Catapres Tts Patch -) 0.1 mg TD Q7D@1000 [facility] Last Admin: 10/01/16 17:29 Dose: 0.1 mg Collagenase (Santyl -) 1 applic TP DAILY [facility] Last Admin: 10/05/16 10:33 Dose: 1 applic Cyanocobalamin (Vitamin B12 -) 1,000 mcg PO DAILY [facility] Last Admin: 10/06/16 09:34 Dose: 1,000 mcg Docusate Sodium (Colace -) 100 mg PO DAILY [facility] Last Admin: 10/06/16 09:34 Dose: 100 mg Fenofibric Acid (Trilipix -) 135 mg PO DAILY [facility] Last Admin: 10/06/16 09:33 Dose: 135 mg Ferrous Sulfate (Feosol -) 325 mg PO DAILY@0800 [facility] Last Admin: 10/06/16 07:56 Dose: 325 mg Folic Acid (Folic Acid -) 1 mg PO DAILY [facility] Last Admin: 10/06/16 09:33 Dose: 1 mg Furosemide (Lasix -) 20 mg PO Q2D@1000 [facility] Last Admin: 10/06/16 09:36 Dose: 20 mg Furosemide (Lasix -) 40 mg PO Q2D@1000 [facility] Last Admin: 10/05/16 10:36 Dose: 40 mg Piperacillin Sod/Tazobactam Sod (Zosyn 3.375gm Ivpb (Pre-Docked)) 50 mls @ 100 mls/hr IVPB Q8H-IV [facility] Last Admin: 10/06/16 09:32 Dose: 100 mls/hr Sodium Chloride (Normal Saline -) 1,000 mls @ 42 mls/hr IV ASDIR [facility] Last Admin: 10/05/16 21:13 Dose: 42 mls/hr Lactobacillus Acidophilus (Bacid -) 1 tab PO DAILY [facility] Last Admin: 10/06/16 09:33 Dose: 1 tab Magnesium Chloride (Slow-Mag -) 128 mg PO DAILY [facility] Last Admin: 10/06/16 09:35 Dose: 128 mg Metoprolol Succinate (Toprol Xl -) 50 mg PO BID [facility] Last Admin: 10/06/16 09:34 Dose: 50 mg Multivitamins/Minerals/Vitamin C (Tab-A-Vit -) 1 tab PO DAILY [facility] Last Admin: 10/06/16 09:33 Dose: 1 tab Ondansetron HCl (Zofran Injection) 4 mg IVPB Q6H PRN PRN Reason: NAUSEA Polyethylene Glycol (Miralax (For Daily Use) -) 17 gm PO DAILY [facility] Last Admin: 10/06/16 09:34 Dose: 17 gm Potassium Phos/Sodium Phos (Phos-Nak Packet -) 1 packet PO TID [facility] Last Admin: 10/06/16 06:20 Dose: 1 packet Ranitidine HCl (Zantac -) 150 mg PO BID [facility] Last Admin: 10/06/16 09:33 Dose: 150 mg - Objective Vital Signs: Vital Signs Temperature 98.0 F 10/06/16 05:50 Pulse Rate 61 10/06/16 05:50 Respiratory Rate 20 10/06/16 09:00 Blood Pressure 155/63 10/06/16 05:50 O2 Sat by Pulse Oximetry (%) 96 10/06/16 09:00 Constitutional: Yes: Well Nourished, No Distress, Calm Cardiovascular: Yes: Regular Rate and Rhythm, S1, S2. No: JVD, Gallop, Murmur Respiratory: Yes: Regular, CTA Bilaterally (anteriorly). No: Accessory Muscle Use, Wheezes Extremities: No: Cold Edema: No Neurological: Yes: Lethargy ((sleeping and wakes up for exam)). No: Seizure Psychiatric: No: Agitated Labs: CBC, BMP 10/05/16 07:30 10/05/16 07:30 INR, PTT INR 1.28 (0.82-1.09) H 09/28/16 14:00 Assessment/Plan Echo 06/2016: Mod LVH with basal septal thickening. Mod MR/TR/ trace-mild AR. RVSP 40-50. Assessment/Plan 89 year old female hx htn, hld, ppm (medtronic), ckd, dchf/venous insuff/le edema sent to ER for labs showing hgb in 6's. chronic diast CHF, chronic venous ins'y/cellulitis: -once chf 06/30 -pt with chronic le edema, wt near baseline (low 140s lbs) and pt says le edema is better than usual -c/o'd sob with PRBCs transfusion--s/p lasix 20 IVP--sx improved -cxr 09/29 with suspicion of vasc congestion and joni b lines, and ? pleural eff/parenchymal dz L base retrocardiac region -rpt CXR 10/01 with L effusion likely -10/02. resumed home lasix regimen: 20QD/40QD ALT, INCR TO 40 QD WHEN SWELLING WORSE -10/05: continues to deny sob; bun/creat and bicarb steadily improving; cxr not done as PA/lateral--L effusion persists -10/06: asymptomatic persistent effusion--incr lasix to 40 daily, watch lytes/ creat htn: -targeting sbp <160 here given advanced age -amlod dose incr'd 08/30 for hi bp's in hosp--suspect will worsen chronic LE swelling with risk of recurrent cellulitis/hospitalizations -10/01 elevated bp's --> decr amlodipine back to 5mg qd, changed lopressor to toprol for better 24 hr coverage, added clonidine 0.1mg patch, +/- hydralazine later prn -bp's remain mostly at target -no RAAS blockers given h/o hyperkalemia hld: -on trilipix, cont home regimen ppm: -normal check in office 02/2016, normal fcn on ecg 08/30-- continue routine outpt checks ckd: -cr near baseline, monitor with lasix anemia: -here 08/30 with severe anemia with hgb in 6s -egd/foc unrevealing then, heme ?'d MDS dx--was for outpt f/u -again anemic now, req'd 2 U PRBCs--H/H stable since -per pmd, heme
[2016-10-06] MEDS: COLLAGENASE CLOSTRIDIUM HIST. 30 GRAMS TUBE TP SCH (13:02)
[2016-10-07] MEDS: PIPERACILLIN/TAZOB 3.375 GM 50 ML IVPB SCH ×3 (02:14→19:01)
[2016-10-07] MEDS: SODIUM CHLORIDE 1,000 ML IV SCH (06:09)
[2016-10-07] MEDS: NAPH,MB-DB/K PH,MBDB POWDER PACKET PO SCH ×3 (06:10→21:39)
[2016-10-07] MEDS ORDERED: PT OWN MED DRAWER 7, Y5N ONE (09:15)
[2016-10-07] MEDS: CITALOPRAM HYDROBROMIDE 20 MG TABLET (FP) PO SCH (09:30)
[2016-10-07] MEDS: LACTOBACILLUS ACIDOPHILUS 1 EACH TAB (FP) PO SCH (09:30)
[2016-10-07] MEDS: DOCUSATE SODIUM 100 MG CAPSULE (FP) PO SCH (09:32)
[2016-10-07] MEDS: FERROUS SO4 325 MG TABLET (FP) PO SCH (09:33)
[2016-10-07] MEDS: FOLIC ACID 1 MG TABLET (FP) PO SCH (09:33)
[2016-10-07] MEDS: POLYETHYLENE GLYCOL 3350 119 GM BTL PO SCH (09:34)
[2016-10-07] MEDS: FUROSEMIDE 40 MG TABLET (FP) PO SCH (09:34)
[2016-10-07] MEDS: amLODIPine BESYLATE 5 MG TABLET (FP) PO SCH (09:35)
[2016-10-07] MEDS: MAGNESIUM CL 64 MG TABLET.SA PO SCH (09:36)
[2016-10-07] MEDS: COLLAGENASE CLOSTRIDIUM HIST. 30 GRAMS TUBE TP SCH (09:36)
[2016-10-07] MEDS: CYANOCOBALAMIN 1,000 MCG TABLET (FP) PO SCH (09:37)
[2016-10-07] MEDS: METOPROLOL SUCCINATE 50 MG TAB.SR.24H (FP) PO SCH ×2 (09:37→21:39)
[2016-10-07] MEDS: MULTIVITAMINS (DAILY MVI) TABLET (FP) PO SCH (09:37)
[2016-10-07] MEDS: FENOFIBRIC ACID 135 MG CAP PO SCH (09:37)
[2016-10-07] MEDS: ALLOPURINOL 100 MG TABLET (FP) PO SCH (09:38)
[2016-10-07] MEDS: RANITIDINE HCL 150 MG TABLET (FP) PO SCH ×2 (09:38→21:38)
--- NOTE | 2016-10-07 10:02 | PN ---
Progress Note (short form) - Note Progress Note: POD #7 s/p LLE debridement Resting comfortably without complaint. Per JUAN Harris's note, there was some bleeding issues over the weekend. Dressing reinforced. No furhter bleeding issues per RN notes. AVSS. Afebrile. PE: Gen: NAD LLE: dressing removed on rounds, superior aspect of wound with undermining ~ 2" . inferior portion of wound with granulation tissue (clean bed). Pedal edema. Foot warm. Problem List - Problems (1) Abscess or cellulitis of leg Assessment/Plan: Wound dressing changed on morning rounds REDDY compression starting from foot and wrapped proximal. Elevation. Daily dressing changes as ordered in AM Code(s): L02.419 - CUTANEOUS ABSCESS OF LIMB, UNSPECIFIED L03.119 - CELLULITIS OF UNSPECIFIED PART OF LIMB
[2016-10-07] MEDS: ACETAMINOPHEN 325 MG TABLET (FP) PO PRN ×2 (12:00→21:39)
--- NOTE | 2016-10-07 15:05 | PN ---
Progress Note (short form) - Note Progress Note: Chief Complaint: pleural effusion, chf History of Present Illness: comfortable; no sob, orthopnea; no cp, palpit. eating. Current Medications Acetaminophen (Tylenol -) 650 mg PO Q4H PRN PRN Reason: FEVER OR PAIN Last Admin: 10/07/16 12:00 Dose: 650 mg Allopurinol (Zyloprim -) 100 mg PO DAILY [facility] Last Admin: 10/07/16 09:38 Dose: 100 mg Amlodipine Besylate (Norvasc -) 5 mg PO DAILY [facility] Last Admin: 10/07/16 09:35 Dose: 5 mg Citalopram Hydrobromide (Celexa -) 20 mg PO DAILY [facility] Last Admin: 10/07/16 09:30 Dose: 20 mg Clonidine HCl (Catapres Tts Patch -) 0.1 mg TD Q7D@1000 [facility] Last Admin: 10/01/16 17:29 Dose: 0.1 mg Collagenase (Santyl -) 1 applic TP DAILY [facility] Last Admin: 10/07/16 09:36 Dose: Not Given Cyanocobalamin (Vitamin B12 -) 1,000 mcg PO DAILY [facility] Last Admin: 10/07/16 09:37 Dose: 1,000 mcg Docusate Sodium (Colace -) 100 mg PO DAILY [facility] Last Admin: 10/07/16 09:32 Dose: 100 mg Fenofibric Acid (Trilipix -) 135 mg PO DAILY [facility] Last Admin: 10/07/16 09:37 Dose: 135 mg Ferrous Sulfate (Feosol -) 325 mg PO DAILY@0800 [facility] Last Admin: 10/07/16 09:33 Dose: 325 mg Folic Acid (Folic Acid -) 1 mg PO DAILY [facility] Last Admin: 10/07/16 09:33 Dose: 1 mg Furosemide (Lasix -) 40 mg PO DAILY [facility] Last Admin: 10/07/16 09:34 Dose: 40 mg Piperacillin Sod/Tazobactam Sod (Zosyn 3.375gm Ivpb (Pre-Docked)) 50 mls @ 100 mls/hr IVPB Q8H-IV [facility] Last Admin: 10/07/16 09:38 Dose: 100 mls/hr Sodium Chloride (Normal Saline -) 1,000 mls @ 42 mls/hr IV ASDIR [facility] Last Admin: 10/07/16 06:09 Dose: 42 mls/hr Lactobacillus Acidophilus (Bacid -) 1 tab PO DAILY [facility] Last Admin: 10/07/16 09:30 Dose: 1 tab Magnesium Chloride (Slow-Mag -) 128 mg PO DAILY [facility] Last Admin: 10/07/16 09:36 Dose: 128 mg Metoprolol Succinate (Toprol Xl -) 50 mg PO BID [facility] Last Admin: 10/07/16 09:37 Dose: 50 mg Multivitamins/Minerals/Vitamin C (Tab-A-Vit -) 1 tab PO DAILY [facility] Last Admin: 10/07/16 09:37 Dose: 1 tab Ondansetron HCl (Zofran Injection) 4 mg IVPB Q6H PRN PRN Reason: NAUSEA Polyethylene Glycol (Miralax (For Daily Use) -) 17 gm PO DAILY [facility] Last Admin: 10/07/16 09:34 Dose: Not Given Potassium Phos/Sodium Phos (Phos-Nak Packet -) 1 packet PO TID [facility] Last Admin: 10/07/16 14:58 Dose: 1 packet Ranitidine HCl (Zantac -) 150 mg PO BID [facility] Last Admin: 10/07/16 09:38 Dose: 150 mg Vital Signs - 24 hr 10/06/16 10/06/16 10/06/16 15:28 18:41 21:00 Temperature 98.8 F 98.6 F Pulse Rate 68 71 Respiratory 20 20 20 Rate Blood Pressure 133/60 O2 Sat by Pulse 96 Oximetry (%) 10/07/16 10/07/16 10/07/16 06:00 10:00 11:24 Temperature 98.3 F 98.1 F Pulse Rate 64 62 62 Respiratory 20 20 Rate Blood Pressure 154/63 146/49 O2 Sat by Pulse 97 Oximetry (%) 10/07/16 13:58 Temperature 98.5 F Pulse Rate 60 Respiratory 20 Rate Blood Pressure O2 Sat by Pulse Oximetry (%) Intake & Output 10/05/16 10/06/16 10/07/16 10/08/16 07:59 07:59 07:59 07:59 Intake Total 2562 500 604 200 Balance 2562 500 604 200 Constitutional: Yes: Well Nourished, No Distress, Calm Cardiovascular: Yes: Regular Rate and Rhythm, S1, S2. No: JVD, Gallop, Murmur Respiratory: Yes: Regular, bibasilar dullness. No: Accessory Muscle Use, Wheezes Extremities: No: Cold Edema: trace-1+ dependent edema. Neurological: No: Seizure Psychiatric: No: Agitated Labs: CBC, BMP 10/05/16 07:30 10/05/16 07:30 Assessment/Plan Echo 06/2016: Mod LVH with basal septal thickening. Mod MR/TR/ trace-mild AR. RVSP 40-50. Assessment/Plan 89 year old female hx htn, hld, ppm (medtronic), ckd, dchf/venous insuff/le edema sent to ER for labs showing hgb in 6's now s/p LLE debridement. chronic diast CHF, chronic venous ins'y/cellulitis s/p LLE debridement: -once chf 06/30 -pt with chronic le edema, wt near baseline (low 140s lbs) and pt says le edema is better than usual -c/o'd sob with PRBCs transfusion--s/p lasix 20 IVP--sx improved -cxr 09/29 with suspicion of vasc congestion and joni b lines, and ? pleural eff/parenchymal dz L base retrocardiac region -rpt CXR 10/01 with L effusion likely -10/02. resumed home lasix regimen: 20QD/40QD ALT, INCR TO 40 QD WHEN SWELLING WORSE -10/05: continues to deny sob; bun/creat and bicarb steadily improving; cxr not done as PA/lateral--L effusion persists -10/06: asymptomatic persistent effusion--incr lasix to 40 daily, watch lytes/ creat - 10/07: no bmp today on increased lasix, will order for tomorrow. ?still receiving IVF, will stop. htn: -targeting sbp <160 here given advanced age -amlod dose incr'd 08/30 for hi bp's in hosp--suspect will worsen chronic LE swelling with risk of recurrent cellulitis/hospitalizations -10/01 elevated bp's --> decr amlodipine back to 5mg qd, changed lopressor to toprol for better 24 hr coverage, added clonidine 0.1mg patch, +/- hydralazine later prn -bp's remain mostly at target -no RAAS blockers given h/o hyperkalemia hld: -on trilipix, cont home regimen ppm: -normal check in office 02/2016, normal fcn on ecg 08/30-- continue routine outpt checks ckd: -cr near baseline, monitor with lasix anemia: -here 08/30 with severe anemia with hgb in 6s -egd/foc unrevealing then, heme ?'d MDS dx--was for outpt f/u -again anemic now, req'd 2 U PRBCs--H/H stable since -per pmd, heme
--- NOTE | 2016-10-07 15:51 | PN ---
Progress Note, Physician History of Present Illness: patient stable no new issues - Current Medication List Current Medications: Active Medications Acetaminophen (Tylenol -) 650 mg PO Q4H PRN PRN Reason: FEVER OR PAIN Last Admin: 10/07/16 12:00 Dose: 650 mg Allopurinol (Zyloprim -) 100 mg PO DAILY [facility] Last Admin: 10/07/16 09:38 Dose: 100 mg Amlodipine Besylate (Norvasc -) 5 mg PO DAILY [facility] Last Admin: 10/07/16 09:35 Dose: 5 mg Citalopram Hydrobromide (Celexa -) 20 mg PO DAILY [facility] Last Admin: 10/07/16 09:30 Dose: 20 mg Clonidine HCl (Catapres Tts Patch -) 0.1 mg TD Q7D@1000 [facility] Last Admin: 10/01/16 17:29 Dose: 0.1 mg Collagenase (Santyl -) 1 applic TP DAILY [facility] Last Admin: 10/07/16 09:36 Dose: Not Given Cyanocobalamin (Vitamin B12 -) 1,000 mcg PO DAILY [facility] Last Admin: 10/07/16 09:37 Dose: 1,000 mcg Docusate Sodium (Colace -) 100 mg PO DAILY [facility] Last Admin: 10/07/16 09:32 Dose: 100 mg Fenofibric Acid (Trilipix -) 135 mg PO DAILY [facility] Last Admin: 10/07/16 09:37 Dose: 135 mg Ferrous Sulfate (Feosol -) 325 mg PO DAILY@0800 [facility] Last Admin: 10/07/16 09:33 Dose: 325 mg Folic Acid (Folic Acid -) 1 mg PO DAILY [facility] Last Admin: 10/07/16 09:33 Dose: 1 mg Furosemide (Lasix -) 40 mg PO DAILY [facility] Last Admin: 10/07/16 09:34 Dose: 40 mg Piperacillin Sod/Tazobactam Sod (Zosyn 3.375gm Ivpb (Pre-Docked)) 50 mls @ 100 mls/hr IVPB Q8H-IV [facility] Last Admin: 10/07/16 09:38 Dose: 100 mls/hr Sodium Chloride (Normal Saline -) 1,000 mls @ 42 mls/hr IV ASDIR [facility] Last Admin: 10/07/16 06:09 Dose: 42 mls/hr Lactobacillus Acidophilus (Bacid -) 1 tab PO DAILY [facility] Last Admin: 10/07/16 09:30 Dose: 1 tab Magnesium Chloride (Slow-Mag -) 128 mg PO DAILY [facility] Last Admin: 10/07/16 09:36 Dose: 128 mg Metoprolol Succinate (Toprol Xl -) 50 mg PO BID [facility] Last Admin: 10/07/16 09:37 Dose: 50 mg Multivitamins/Minerals/Vitamin C (Tab-A-Vit -) 1 tab PO DAILY [facility] Last Admin: 10/07/16 09:37 Dose: 1 tab Ondansetron HCl (Zofran Injection) 4 mg IVPB Q6H PRN PRN Reason: NAUSEA Polyethylene Glycol (Miralax (For Daily Use) -) 17 gm PO DAILY [facility] Last Admin: 10/07/16 09:34 Dose: Not Given Potassium Phos/Sodium Phos (Phos-Nak Packet -) 1 packet PO TID [facility] Last Admin: 10/07/16 14:58 Dose: 1 packet Ranitidine HCl (Zantac -) 150 mg PO BID [facility] Last Admin: 10/07/16 09:38 Dose: 150 mg - Objective Vital Signs: Vital Signs Temperature 98.5 F 10/07/16 13:58 Pulse Rate 60 10/07/16 13:58 Respiratory Rate 20 10/07/16 13:58 Blood Pressure 146/49 10/07/16 10:00 O2 Sat by Pulse Oximetry (%) 97 10/07/16 11:24 Constitutional: Yes: No Distress, Calm Cardiovascular: Yes: Regular Rate and Rhythm Respiratory: Yes: Regular, CTA Bilaterally Gastrointestinal: Yes: Normal Bowel Sounds, Soft Musculoskeletal: Yes: WNL, Other Wound/Incision: Yes: Dressing Dry and Intact Neurological: Yes: Alert Psychiatric: Yes: Alert Labs: CBC, BMP 10/05/16 07:30 10/05/16 07:30 INR, PTT INR 1.28 (0.82-1.09) H 09/28/16 14:00 Assessment/Plan Problem List - Problems (1) Abscess or cellulitis of leg Code(s): L02.419 - CUTANEOUS ABSCESS OF LIMB, UNSPECIFIED L03.119 - CELLULITIS OF UNSPECIFIED PART OF LIMB (2) Anemia Code(s): D64.9 - ANEMIA, UNSPECIFIED (3) CHF (congestive heart failure)y Code(s): I50.9 - HEART FAILURE, UNSPECIFIED Qualifiers: Congestive heart failure type: unspecified congestive heart failure type Congestive heart failure chronicity: unspecified congestive heart failure chronicity Qualified Code(s): I50.9 - Heart failure, unspecified (4) Fall Code(s): W19.XXXA - UNSPECIFIED FALL, INITIAL ENCOUNTER Qualifiers: Encounter type: initial encounter Qualified Code(s): W19.XXXA - Unspecified fall, initial encounter (5) HLD (hyperlipidemia) Code(s): E78.5 - HYPERLIPIDEMIA, UNSPECIFIED (6) HTN (hypertension) Code(s): I10 - ESSENTIAL (PRIMARY) HYPERTENSION plan ct abx dressing intact will change to oral tomorrow wound care
--- NOTE | 2016-10-07 17:53 | PN ---
Progress Note, Physician Chief Complaint: Ms Desouza says she is doing so so today. But otherwise without complaint. No cp, sob, n/v. - Current Medication List Current Medications: Active Medications Acetaminophen (Tylenol -) 650 mg PO Q4H PRN PRN Reason: FEVER OR PAIN Last Admin: 10/07/16 12:00 Dose: 650 mg Allopurinol (Zyloprim -) 100 mg PO DAILY [facility] Last Admin: 10/07/16 09:38 Dose: 100 mg Amlodipine Besylate (Norvasc -) 5 mg PO DAILY [facility] Last Admin: 10/07/16 09:35 Dose: 5 mg Citalopram Hydrobromide (Celexa -) 20 mg PO DAILY [facility] Last Admin: 10/07/16 09:30 Dose: 20 mg Clonidine HCl (Catapres Tts Patch -) 0.1 mg TD Q7D@1000 [facility] Last Admin: 10/01/16 17:29 Dose: 0.1 mg Collagenase (Santyl -) 1 applic TP DAILY [facility] Last Admin: 10/07/16 09:36 Dose: Not Given Cyanocobalamin (Vitamin B12 -) 1,000 mcg PO DAILY [facility] Last Admin: 10/07/16 09:37 Dose: 1,000 mcg Docusate Sodium (Colace -) 100 mg PO DAILY [facility] Last Admin: 10/07/16 09:32 Dose: 100 mg Fenofibric Acid (Trilipix -) 135 mg PO DAILY [facility] Last Admin: 10/07/16 09:37 Dose: 135 mg Ferrous Sulfate (Feosol -) 325 mg PO DAILY@0800 [facility] Last Admin: 10/07/16 09:33 Dose: 325 mg Folic Acid (Folic Acid -) 1 mg PO DAILY [facility] Last Admin: 10/07/16 09:33 Dose: 1 mg Furosemide (Lasix -) 40 mg PO DAILY [facility] Last Admin: 10/07/16 09:34 Dose: 40 mg Piperacillin Sod/Tazobactam Sod (Zosyn 3.375gm Ivpb (Pre-Docked)) 50 mls @ 100 mls/hr IVPB Q8H-IV [facility] Last Admin: 10/07/16 09:38 Dose: 100 mls/hr Sodium Chloride (Normal Saline -) 1,000 mls @ 42 mls/hr IV ASDIR [facility] Last Admin: 10/07/16 06:09 Dose: 42 mls/hr Lactobacillus Acidophilus (Bacid -) 1 tab PO DAILY [facility] Last Admin: 10/07/16 09:30 Dose: 1 tab Magnesium Chloride (Slow-Mag -) 128 mg PO DAILY [facility] Last Admin: 10/07/16 09:36 Dose: 128 mg Metoprolol Succinate (Toprol Xl -) 50 mg PO BID [facility] Last Admin: 10/07/16 09:37 Dose: 50 mg Multivitamins/Minerals/Vitamin C (Tab-A-Vit -) 1 tab PO DAILY [facility] Last Admin: 10/07/16 09:37 Dose: 1 tab Ondansetron HCl (Zofran Injection) 4 mg IVPB Q6H PRN PRN Reason: NAUSEA Polyethylene Glycol (Miralax (For Daily Use) -) 17 gm PO DAILY [facility] Last Admin: 10/07/16 09:34 Dose: Not Given Potassium Phos/Sodium Phos (Phos-Nak Packet -) 1 packet PO TID [facility] Last Admin: 10/07/16 14:58 Dose: 1 packet Ranitidine HCl (Zantac -) 150 mg PO BID [facility] Last Admin: 10/07/16 09:38 Dose: 150 mg - Objective Vital Signs: Vital Signs Temperature 98.5 F 10/07/16 13:58 Pulse Rate 60 10/07/16 13:58 Respiratory Rate 20 10/07/16 13:58 Blood Pressure 146/49 10/07/16 10:00 O2 Sat by Pulse Oximetry (%) 97 10/07/16 11:24 Constitutional: Yes: Well Nourished, No Distress, Calm Cardiovascular: Yes: Regular Rate and Rhythm. No: Gallop, Murmur, Rub Respiratory: Yes: Regular, CTA Bilaterally. No: Rales, Rhonchi, Wheezes Gastrointestinal: Yes: Normal Bowel Sounds, Soft. No: Distention, Tenderness Extremities: Yes: Other (LLE wrapped) Edema: No Labs: CBC, BMP 10/05/16 07:30 10/05/16 07:30 INR, PTT INR 1.28 (0.82-1.09) H 09/28/16 14:00 Problem List - Problems (1) Abscess or cellulitis of leg Code(s): L02.419 - CUTANEOUS ABSCESS OF LIMB, UNSPECIFIED L03.119 - CELLULITIS OF UNSPECIFIED PART OF LIMB (2) Anemia Code(s): D64.9 - ANEMIA, UNSPECIFIED (3) CHF (congestive heart failure) Code(s): I50.9 - HEART FAILURE, UNSPECIFIED Qualifiers: Qualified Code(s): I50.9 - Heart failure, unspecified (4) Fall Code(s): W19.XXXA - UNSPECIFIED FALL, INITIAL ENCOUNTER Qualifiers: Qualified Code(s): W19.XXXA - Unspecified fall, initial encounter (5) HLD (hyperlipidemia) Code(s): E78.5 - HYPERLIPIDEMIA, UNSPECIFIED (6) HTN (hypertension) Code(s): I10 - ESSENTIAL (PRIMARY) HYPERTENSION Assessment/Plan (1) Abscess or cellulitis of leg Assessment/Plan: -s/p debridement -ID managing, continue zosyn. Possible change to oral antibiotics tomorrow -full course per ID, patient planned to go home with [facility] but may benefit from SNF Code(s): L02.419 - CUTANEOUS ABSCESS OF LIMB, UNSPECIFIED L03.119 - CELLULITIS OF UNSPECIFIED PART OF LIMB (2) Anemia Assessment/Plan: -secondary to blood loss -stable Code(s): D64.9 - ANEMIA, UNSPECIFIED (3) CHF (congestive heart failure) Assessment/Plan: -cardiology following -continue lasix Code(s): I50.9 - HEART FAILURE, UNSPECIFIED Qualifiers: Congestive heart failure type: unspecified congestive heart failure type Congestive heart failure chronicity: unspecified congestive heart failure chronicity Qualified Code(s): I50.9 - Heart failure, unspecified (4) Fall Assessment/Plan: -history of fall about two weeks prior to admission -PT following -fall risk precautions Code(s): W19.XXXA - UNSPECIFIED FALL, INITIAL ENCOUNTER Qualifiers: Encounter type: initial encounter Qualified Code(s): W19.XXXA - Unspecified fall, initial encounter (5) HLD (hyperlipidemia) Assessment/Plan: -continue trilipix Code(s): E78.5 - HYPERLIPIDEMIA, UNSPECIFIED (6) HTN (hypertension) Assessment/Plan: -controlled -continue current management Code(s): I10 - ESSENTIAL (PRIMARY) HYPERTENSION
[2016-10-08] MEDS: ACETAMINOPHEN 325 MG TABLET (FP) PO PRN ×2 (06:26→22:06)
[2016-10-08] MEDS: NAPH,MB-DB/K PH,MBDB POWDER PACKET PO SCH ×3 (07:03→22:08)
[2016-10-08 07:52] LABS: BASOPHIL 1.2 % (0-2.0); EOSINOPHIL 4.7 % (0-4.5); MCH 32.7 pg (25.7-33.7); MCHC 33.5 g/dl (32.0-36.0); MEAN CELL VOLUME 97.7 fl (80-96); MEAN PLT VOLUME 7.7 fl (7.5-11.1); NEUTROPHILS 64.1 % (42.8-82.8); PLATELET COUNT 201 K/MM3 (134-434); RDW 19.8 % (11.6-15.6); WHITE BLOOD COUNT 6.2 K/mm3 (4.0-10.0)
[2016-10-08 08:10] LABS: CALCIUM 8.7 mg/dL (8.5-10.1); CREATININE 0.8 mg/dL (0.55-1.02); MAGNESIUM 2.2 mg/dL (1.8-2.4); PHOSPHOROUS 2.9 mg/dL (2.5-4.9)
[2016-10-08] MEDS ORDERED: PT OWN MED DRAWER 7, Y5N ONE (09:34)
[2016-10-08] MEDS: FERROUS SO4 325 MG TABLET (FP) PO SCH (09:38)
[2016-10-08] MEDS: LACTOBACILLUS ACIDOPHILUS 1 EACH TAB (FP) PO SCH (09:38)
[2016-10-08] MEDS: MAGNESIUM CL 64 MG TABLET.SA PO SCH (09:39)
[2016-10-08] MEDS: CITALOPRAM HYDROBROMIDE 20 MG TABLET (FP) PO SCH (09:39)
[2016-10-08] MEDS: cloNIDine-TTS 0.1 MG/24 HRS PATCH.TDWK TD SCH (09:39)
[2016-10-08] MEDS: MULTIVITAMINS (DAILY MVI) TABLET (FP) PO SCH (09:39)
[2016-10-08] MEDS: DOCUSATE SODIUM 100 MG CAPSULE (FP) PO SCH (09:39)
[2016-10-08] MEDS: FENOFIBRIC ACID 135 MG CAP PO SCH (09:39)
[2016-10-08] MEDS: METOPROLOL SUCCINATE 50 MG TAB.SR.24H (FP) PO SCH ×2 (09:40→22:08)
[2016-10-08] MEDS: RANITIDINE HCL 150 MG TABLET (FP) PO SCH ×2 (09:40→22:06)
[2016-10-08] MEDS: ALLOPURINOL 100 MG TABLET (FP) PO SCH (09:40)
[2016-10-08] MEDS: CYANOCOBALAMIN 1,000 MCG TABLET (FP) PO SCH (09:40)
[2016-10-08] MEDS: COLLAGENASE CLOSTRIDIUM HIST. 30 GRAMS TUBE TP SCH (09:40)
[2016-10-08] MEDS: POLYETHYLENE GLYCOL 3350 119 GM BTL PO SCH (09:41)
[2016-10-08] MEDS: amLODIPine BESYLATE 5 MG TABLET (FP) PO SCH (09:41)
[2016-10-08] MEDS: FOLIC ACID 1 MG TABLET (FP) PO SCH (09:41)
[2016-10-08] MEDS: FUROSEMIDE 40 MG TABLET (FP) PO SCH (09:41)
--- NOTE | 2016-10-08 13:35 | PN ---
Progress Note, Physician History of Present Illness: patient doing well no issues - Current Medication List Current Medications: Active Medications Acetaminophen (Tylenol -) 650 mg PO Q4H PRN PRN Reason: FEVER OR PAIN Last Admin: 10/08/16 06:26 Dose: 650 mg Allopurinol (Zyloprim -) 100 mg PO DAILY [facility] Last Admin: 10/08/16 09:40 Dose: 100 mg Amlodipine Besylate (Norvasc -) 5 mg PO DAILY [facility] Last Admin: 10/08/16 09:41 Dose: 5 mg Citalopram Hydrobromide (Celexa -) 20 mg PO DAILY [facility] Last Admin: 10/08/16 09:39 Dose: 20 mg Clonidine HCl (Catapres Tts Patch -) 0.1 mg TD Q7D@1000 [facility] Last Admin: 10/08/16 09:39 Dose: 0.1 mg Collagenase (Santyl -) 1 applic TP DAILY [facility] Last Admin: 10/08/16 09:40 Dose: Not Given Cyanocobalamin (Vitamin B12 -) 1,000 mcg PO DAILY [facility] Last Admin: 10/08/16 09:40 Dose: 1,000 mcg Docusate Sodium (Colace -) 100 mg PO DAILY [facility] Last Admin: 10/08/16 09:39 Dose: 100 mg Fenofibric Acid (Trilipix -) 135 mg PO DAILY [facility] Last Admin: 10/08/16 09:39 Dose: 135 mg Ferrous Sulfate (Feosol -) 325 mg PO DAILY@0800 [facility] Last Admin: 10/08/16 09:38 Dose: 325 mg Folic Acid (Folic Acid -) 1 mg PO DAILY [facility] Last Admin: 10/08/16 09:41 Dose: 1 mg Furosemide (Lasix -) 40 mg PO DAILY [facility] Last Admin: 10/08/16 09:41 Dose: 40 mg Lactobacillus Acidophilus (Bacid -) 1 tab PO DAILY [facility] Last Admin: 10/08/16 09:38 Dose: 1 tab Magnesium Chloride (Slow-Mag -) 128 mg PO DAILY [facility] Last Admin: 10/08/16 09:39 Dose: 128 mg Metoprolol Succinate (Toprol Xl -) 50 mg PO BID [facility] Last Admin: 10/08/16 09:40 Dose: 50 mg Multivitamins/Minerals/Vitamin C (Tab-A-Vit -) 1 tab PO DAILY [facility] Last Admin: 10/08/16 09:39 Dose: 1 tab Ondansetron HCl (Zofran Injection) 4 mg IVPB Q6H PRN PRN Reason: NAUSEA Polyethylene Glycol (Miralax (For Daily Use) -) 17 gm PO DAILY [facility] Last Admin: 10/08/16 09:41 Dose: Not Given Potassium Phos/Sodium Phos (Phos-Nak Packet -) 1 packet PO TID [facility] Last Admin: 10/08/16 07:03 Dose: Not Given Ranitidine HCl (Zantac -) 150 mg PO BID [facility] Last Admin: 10/08/16 09:40 Dose: 150 mg - Objective Vital Signs: Vital Signs Temperature 97.7 F 10/08/16 09:00 Pulse Rate 66 10/08/16 09:00 Respiratory Rate 18 10/08/16 09:00 Blood Pressure 150/86 10/08/16 09:00 O2 Sat by Pulse Oximetry (%) 97 10/08/16 09:00 Constitutional: Yes: No Distress, Calm Cardiovascular: Yes: Regular Rate and Rhythm Respiratory: Yes: Regular Gastrointestinal: Yes: Normal Bowel Sounds, Soft Musculoskeletal: Yes: Other Extremities: Yes: Other Integumentary: Yes: Other Wound/Incision: Yes: Dressing Dry and Intact Neurological: Yes: Alert, Oriented Psychiatric: Yes: Alert Labs: CBC, BMP 10/08/16 05:40 10/08/16 05:40 INR, PTT INR 1.28 (0.82-1.09) H 09/28/16 14:00 Assessment/Plan Problem List - Problems (1) Abscess or cellulitis of leg Code(s): L02.419 - CUTANEOUS ABSCESS OF LIMB, UNSPECIFIED L03.119 - CELLULITIS OF UNSPECIFIED PART OF LIMB (2) Anemia Code(s): D64.9 - ANEMIA, UNSPECIFIED (3) CHF (congestive heart failure)y Code(s): I50.9 - HEART FAILURE, UNSPECIFIED Qualifiers: Congestive heart failure type: unspecified congestive heart failure type Congestive heart failure chronicity: unspecified congestive heart failure chronicity Qualified Code(s): I50.9 - Heart failure, unspecified (4) Fall Code(s): W19.XXXA - UNSPECIFIED FALL, INITIAL ENCOUNTER Qualifiers: Encounter type: initial encounter Qualified Code(s): W19.XXXA - Unspecified fall, initial encounter (5) HLD (hyperlipidemia) Code(s): E78.5 - HYPERLIPIDEMIA, UNSPECIFIED (6) HTN (hypertension) Code(s): I10 - ESSENTIAL (PRIMARY) HYPERTENSION plan ct abx dressing intact stopped abx jeremie monitor off of abx physiotherapy
--- NOTE | 2016-10-08 16:59 | PN ---
Progress Note, Physician Chief Complaint: Ms Desouza is without complaint. No cp, sob, n/v. - Current Medication List Current Medications: Active Medications Acetaminophen (Tylenol -) 650 mg PO Q4H PRN PRN Reason: FEVER OR PAIN Last Admin: 10/08/16 06:26 Dose: 650 mg Allopurinol (Zyloprim -) 100 mg PO DAILY [facility] Last Admin: 10/08/16 09:40 Dose: 100 mg Amlodipine Besylate (Norvasc -) 5 mg PO DAILY [facility] Last Admin: 10/08/16 09:41 Dose: 5 mg Citalopram Hydrobromide (Celexa -) 20 mg PO DAILY [facility] Last Admin: 10/08/16 09:39 Dose: 20 mg Clonidine HCl (Catapres Tts Patch -) 0.1 mg TD Q7D@1000 [facility] Last Admin: 10/08/16 09:39 Dose: 0.1 mg Collagenase (Santyl -) 1 applic TP DAILY [facility] Last Admin: 10/08/16 09:40 Dose: Not Given Cyanocobalamin (Vitamin B12 -) 1,000 mcg PO DAILY [facility] Last Admin: 10/08/16 09:40 Dose: 1,000 mcg Docusate Sodium (Colace -) 100 mg PO DAILY [facility] Last Admin: 10/08/16 09:39 Dose: 100 mg Fenofibric Acid (Trilipix -) 135 mg PO DAILY [facility] Last Admin: 10/08/16 09:39 Dose: 135 mg Ferrous Sulfate (Feosol -) 325 mg PO DAILY@0800 [facility] Last Admin: 10/08/16 09:38 Dose: 325 mg Folic Acid (Folic Acid -) 1 mg PO DAILY [facility] Last Admin: 10/08/16 09:41 Dose: 1 mg Furosemide (Lasix -) 40 mg PO DAILY [facility] Last Admin: 10/08/16 09:41 Dose: 40 mg Lactobacillus Acidophilus (Bacid -) 1 tab PO DAILY [facility] Last Admin: 10/08/16 09:38 Dose: 1 tab Magnesium Chloride (Slow-Mag -) 128 mg PO DAILY [facility] Last Admin: 10/08/16 09:39 Dose: 128 mg Metoprolol Succinate (Toprol Xl -) 50 mg PO BID [facility] Last Admin: 10/08/16 09:40 Dose: 50 mg Multivitamins/Minerals/Vitamin C (Tab-A-Vit -) 1 tab PO DAILY [facility] Last Admin: 10/08/16 09:39 Dose: 1 tab Ondansetron HCl (Zofran Injection) 4 mg IVPB Q6H PRN PRN Reason: NAUSEA Polyethylene Glycol (Miralax (For Daily Use) -) 17 gm PO DAILY [facility] Last Admin: 10/08/16 09:41 Dose: Not Given Potassium Phos/Sodium Phos (Phos-Nak Packet -) 1 packet PO TID [facility] Last Admin: 10/08/16 14:26 Dose: Not Given Ranitidine HCl (Zantac -) 150 mg PO BID [facility] Last Admin: 10/08/16 09:40 Dose: 150 mg - Objective Vital Signs: Vital Signs Temperature 97.8 F 10/08/16 13:51 Pulse Rate 63 10/08/16 13:51 Respiratory Rate 20 10/08/16 13:51 Blood Pressure 150/86 10/08/16 09:00 O2 Sat by Pulse Oximetry (%) 97 10/08/16 09:00 Constitutional: Yes: Well Nourished, No Distress, Calm Cardiovascular: Yes: Regular Rate and Rhythm. No: Gallop, Murmur, Rub Respiratory: Yes: Regular, CTA Bilaterally. No: Rales, Rhonchi, Wheezes Gastrointestinal: Yes: Normal Bowel Sounds, Soft. No: Distention, Tenderness Extremities: Yes: Other (wrapped) Edema: No Labs: CBC, BMP 10/08/16 05:40 10/08/16 05:40 INR, PTT INR 1.28 (0.82-1.09) H 09/28/16 14:00 Problem List - Problems (1) Abscess or cellulitis of leg Code(s): L02.419 - CUTANEOUS ABSCESS OF LIMB, UNSPECIFIED L03.119 - CELLULITIS OF UNSPECIFIED PART OF LIMB (2) Anemia Code(s): D64.9 - ANEMIA, UNSPECIFIED (3) CHF (congestive heart failure) Code(s): I50.9 - HEART FAILURE, UNSPECIFIED Qualifiers: Congestive heart failure type: unspecified congestive heart failure type Congestive heart failure chronicity: unspecified congestive heart failure chronicity Qualified Code(s): I50.9 - Heart failure, unspecified (4) Fall Code(s): W19.XXXA - UNSPECIFIED FALL, INITIAL ENCOUNTER Qualifiers: Encounter type: initial encounter Qualified Code(s): W19.XXXA - Unspecified fall, initial encounter (5) HLD (hyperlipidemia) Code(s): E78.5 - HYPERLIPIDEMIA, UNSPECIFIED (6) HTN (hypertension) Code(s): I10 - ESSENTIAL (PRIMARY) HYPERTENSION Assessment/Plan (1) Abscess or cellulitis of leg Assessment/Plan: -s/p debridement -ID managing, zosyn stopped. Monitor off antibiotics per ID -patient planned to go home with [facility] but may benefit from SNF Code(s): L02.419 - CUTANEOUS ABSCESS OF LIMB, UNSPECIFIED L03.119 - CELLULITIS OF UNSPECIFIED PART OF LIMB (2) Anemia Assessment/Plan: -secondary to blood loss -stable Code(s): D64.9 - ANEMIA, UNSPECIFIED (3) CHF (congestive heart failure) Assessment/Plan: -cardiology following -continue lasix Code(s): I50.9 - HEART FAILURE, UNSPECIFIED Qualifiers: Congestive heart failure type: unspecified congestive heart failure type Congestive heart failure chronicity: unspecified congestive heart failure chronicity Qualified Code(s): I50.9 - Heart failure, unspecified (4) Fall Assessment/Plan: -history of fall about two weeks prior to admission -PT following -fall risk precautions Code(s): W19.XXXA - UNSPECIFIED FALL, INITIAL ENCOUNTER Qualifiers: Encounter type: initial encounter Qualified Code(s): W19.XXXA - Unspecified fall, initial encounter (5) HLD (hyperlipidemia) Assessment/Plan: -continue trilipix Code(s): E78.5 - HYPERLIPIDEMIA, UNSPECIFIED (6) HTN (hypertension) Assessment/Plan: -controlled -continue current management Code(s): I10 - ESSENTIAL (PRIMARY) HYPERTENSION
[2016-10-09] MEDS: NAPH,MB-DB/K PH,MBDB POWDER PACKET PO SCH ×2 (06:16→14:39)
[2016-10-09] MEDS: ACETAMINOPHEN 325 MG TABLET (FP) PO PRN (06:16)
[2016-10-09 06:18] VITALS: BP 149/67
[2016-10-09 07:44] LABS: MCH 32.6 pg (25.7-33.7); MCHC 33.5 g/dl (32.0-36.0); MEAN CELL VOLUME 97.5 fl (80-96); MEAN PLT VOLUME 7.6 fl (7.5-11.1); NEUTROPHILS 62.9 % (42.8-82.8); PLATELET COUNT 216 K/MM3 (134-434); RDW 19.4 % (11.6-15.6); WHITE BLOOD COUNT 5.8 K/mm3 (4.0-10.0)
[2016-10-09 08:55] LABS: CALCIUM 9.2 mg/dL (8.5-10.1); CREATININE 0.7 mg/dL (0.55-1.02); MAGNESIUM 2.1 mg/dL (1.8-2.4); PHOSPHOROUS 2.5 mg/dL (2.5-4.9)
[2016-10-09] MEDS: FENOFIBRIC ACID 135 MG CAP PO SCH (09:15)
[2016-10-09] MEDS: ALLOPURINOL 100 MG TABLET (FP) PO SCH (09:15)
[2016-10-09] MEDS: MULTIVITAMINS (DAILY MVI) TABLET (FP) PO SCH (09:15)
[2016-10-09] MEDS: LACTOBACILLUS ACIDOPHILUS 1 EACH TAB (FP) PO SCH (09:15)
[2016-10-09] MEDS: amLODIPine BESYLATE 5 MG TABLET (FP) PO SCH (09:15)
[2016-10-09] MEDS: FUROSEMIDE 40 MG TABLET (FP) PO SCH (09:15)
[2016-10-09] MEDS: FERROUS SO4 325 MG TABLET (FP) PO SCH (09:15)
[2016-10-09] MEDS: METOPROLOL SUCCINATE 50 MG TAB.SR.24H (FP) PO SCH (09:15)
[2016-10-09] MEDS: MAGNESIUM CL 64 MG TABLET.SA PO SCH (09:15)
[2016-10-09] MEDS: DOCUSATE SODIUM 100 MG CAPSULE (FP) PO SCH (09:15)
[2016-10-09] MEDS: RANITIDINE HCL 150 MG TABLET (FP) PO SCH (09:15)
[2016-10-09] MEDS: CITALOPRAM HYDROBROMIDE 20 MG TABLET (FP) PO SCH (09:15)
[2016-10-09] MEDS: CYANOCOBALAMIN 1,000 MCG TABLET (FP) PO SCH (09:15)
[2016-10-09] MEDS: FOLIC ACID 1 MG TABLET (FP) PO SCH (09:16)
[2016-10-09 13:32] VITALS: PULSE 60; TEMP 98.2
[2016-10-09] MEDS: COLLAGENASE CLOSTRIDIUM HIST. 30 GRAMS TUBE TP SCH (14:39)
[2016-10-09] MEDS: POLYETHYLENE GLYCOL 3350 119 GM BTL PO SCH (14:39)
--- NOTE | 2016-10-09 16:05 | PN ---
Progress Note, Physician History of Present Illness: patient doing well no issues - Objective Vital Signs: Vital Signs Temperature 98.2 F 10/09/16 13:30 Pulse Rate 60 10/09/16 13:30 Respiratory Rate 17 10/09/16 13:30 Blood Pressure 149/67 10/09/16 06:00 O2 Sat by Pulse Oximetry (%) 99 10/09/16 09:00 Constitutional: Yes: No Distress, Calm Cardiovascular: Yes: Regular Rate and Rhythm Respiratory: Yes: Regular, CTA Bilaterally Gastrointestinal: Yes: Normal Bowel Sounds, Soft Musculoskeletal: Yes: WNL Extremities: Yes: Other Wound/Incision: Yes: Dressing Dry and Intact Neurological: Yes: Alert Labs: CBC, BMP 10/09/16 06:00 10/09/16 06:00 INR, PTT INR 1.28 (0.82-1.09) H 09/28/16 14:00 Assessment/Plan Problem List - Problems (1) Abscess or cellulitis of leg Code(s): L02.419 - CUTANEOUS ABSCESS OF LIMB, UNSPECIFIED L03.119 - CELLULITIS OF UNSPECIFIED PART OF LIMB (2) Anemia Code(s): D64.9 - ANEMIA, UNSPECIFIED (3) CHF (congestive heart failure)y Code(s): I50.9 - HEART FAILURE, UNSPECIFIED Qualifiers: Congestive heart failure type: unspecified congestive heart failure type Congestive heart failure chronicity: unspecified congestive heart failure chronicity Qualified Code(s): I50.9 - Heart failure, unspecified (4) Fall Code(s): W19.XXXA - UNSPECIFIED FALL, INITIAL ENCOUNTER Qualifiers: Encounter type: initial encounter Qualified Code(s): W19.XXXA - Unspecified fall, initial encounter (5) HLD (hyperlipidemia) Code(s): E78.5 - HYPERLIPIDEMIA, UNSPECIFIED (6) HTN (hypertension) Code(s): I10 - ESSENTIAL (PRIMARY) HYPERTENSION plan ct current mgmt wound care
--- NOTE | 2016-10-14 16:10 | DS ---
Physical Examination Vital Signs: Vital Signs Temperature 98.2 F 10/09/16 13:30 Pulse Rate 60 10/09/16 13:30 Respiratory Rate 17 10/09/16 13:30 Blood Pressure 149/67 10/09/16 06:00 O2 Sat by Pulse Oximetry (%) 99 10/09/16 09:00 Labs: CBC, BMP 10/09/16 06:00 10/09/16 06:00 Discharge Summary Reason For Visit: ABCESS OR CELLULITIS OF LEG Condition: Good - Instructions Diet, Activity, Other Instructions: resume previous diet. Up with assistance. Wound care taught to son in law, continue as taught. Referrals: Whitney Healy MD [Staff Physician] - Neftali Garcia MD [Primary Care Provider] - Terrence Villa MD [Staff Physician] - Efrain Schrader MD [Staff Physician] - Disposition: VNS/HOME HEALTH CARE - Home Medications Comprehensive Discharge Medication List: Ambulatory Orders Fenofibric Acid [Trilipix -] 135 mg PO DAILY #0 cap 04/08/15 Folic Acid 1 mg PO DAILY 05/08/15 Magnesium Chloride [Slow-Mag -] 128 mg PO DAILY tablet.sa 05/18/15 Allopurinol [Zyloprim -] 100 mg PO DAILY tablet 09/29/15 Metoprolol Tartrate [Lopressor -] 50 mg PO BID tablet 09/29/15 Citalopram Hydrobromide [Celexa -] 1 tab PO DAILY 06/18/16 Ferrous Sulfate 1 tab PO DAILY 06/18/16 Multivitamins [Multivit ([facility] Formulary)] 1 tab PO DAILY 06/18/16 Ranitidine [Zantac -] 1 tab PO BID 06/18/16 Cyanocobalamin [Vitamin B12 -] 1,000 mcg PO DAILY 08/02/16 Docusate Sodium [Colace -] 100 mg PO DAILY capsule 08/19/16 Amlodipine Besylate [Norvasc -] 5 mg PO DAILY 09/20/16 Bismuth Tribromoph/Petrolatum [Xeroform Petrolatum Dress] 1 each TP DAILY #90 bandage 10/09/16 Clonidine Patch [Catapres Tts Patch -] 0.1 mg TD Q7D@1000 #4 patch.tdwk 01/25/ 17 Furosemide [Lasix -] 40 mg PO DAILY #30 tablet 10/09/16
== END 2016-10-09 16:03 | disposition home health service (06) | DRG 571 ==
LOC: JER 12:40 → JERBED 15:01 → J7W 19:08 → J4W 09-29 18:53 → J6S 09-30 20:23
PROVIDERS: ADMIT Internal Medicine; ATTEND Internal Medicine
PROC: 30233N1 Transfusion of Nonautologous Red Blood Cells into Peripheral Vein, Percutaneous Approach (ICD-10-PCS; 2016-09-29)
PROC: 0JBP0ZZ Excision of Left Lower Leg Subcutaneous Tissue and Fascia, Open Approach (ICD-10-PCS; principal; 2016-09-30 10:00)
DX: L03.116 Cellulitis of left lower limb (principal); L97.829 Non-pressure chronic ulcer of other part of left lower leg with unspecified severity; I13.0 Hypertensive heart and chronic kidney disease with heart failure and stage 1 through stage 4 chronic kidney disease, or unspecified chronic kidney disease; I50.32 Chronic diastolic (congestive) heart failure; L02.416 Cutaneous abscess of left lower limb; I73.89 Other specified peripheral vascular diseases; D64.9 Anemia, unspecified; E78.5 Hyperlipidemia, unspecified; I27.2 Other secondary pulmonary hypertension; F03.90 Unspecified dementia, unspecified severity, without behavioral disturbance, psychotic disturbance, mood disturbance, and anxiety; K43.9 Ventral hernia without obstruction or gangrene; M10.9 Gout, unspecified; F32.9 Major depressive disorder, single episode, unspecified; N18.9 Chronic kidney disease, unspecified; W18.39XA Other fall on same level, initial encounter; Y93.89 Activity, other specified; Y92.098 Other place in other non-institutional residence as the place of occurrence of the external cause; Z95.0 Presence of cardiac pacemaker
CPT/HCPCS: 36415; 36430; 71010-TC; 73590-TC-LT; 73700-TC-RT; 80048; 80053; 83735; 84100; 85025; 85610; 86850; 86900; 86901; 86922; 87040; 93005; 93010; 94760; 97116-GP; 97162-PG; 99284-25; P9038; P9058

== ENCOUNTER 2016-10-30 08:33 | Observation (INO) | payer BC, OTHER ==
[2016-10-30 08:56] VITALS: BMI 25.6
--- NOTE | 2016-10-30 09:02 | PDOC ---
History of Present Illness - General History Source: Patient, Old Records Exam Limitations: No Limitations - History of Present Illness Initial Comments: 10/30/16 09:03 The patient is an 89-year-old woman, accompanied by son-in-law, lives at home, with a significant past medical history of anemia(bone marrow dysfunction; requiring transfusions (last on 08/2016 and 09/2016), hypertension, hypercholesterolemia, pulmonary hypertension, congestive heart failure(home O2 dependent, on 2L), dementia, depression who presents to the emergency department for further evaluation of generalized weakness. Information was obtained by patient's son-in-law who lives and takes care of the patient. As per son-in-law, the patient had a follow-up outpatient appointment with Dr. Healy, yesterday, for which everything was normal. He states that yesterday afternoon and night, the patient was complaining of generalized body aches, chest pain with associated shortness of breath. He gave the patient oxygen, which provided minimal relief. No fever, chills, cough, lightheadedness, dizziness, nausea, vomiting, abdominal pain, diarrhea. Patient was admitted in this hospital on 09/2016 for left lower extremity cellulitis. She underwent debridment by Dr. Efrain Schrader and was stared on Zosyn IV and was discharged on oral antibiotics. She is complaint with wound care and her dressing was last changed yesterday. Allergies: No Known Drug Allergies. 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 Tonsillectomy. Social History: Never smoked. No ETOH and recreational drug use. Primary Care Physician: Dr. Neftali Garcia [phone] Rrt: Dr. Terrence Villa [phone] Infectious Disease Specialist: Dr. Whitney Healy [phone] <Nena Kwon - Last Filed: 10/30/16 12:54> <Ash Martins - Last Filed: 10/30/16 16:38> - General Chief Complaint: Pain Stated Complaint: PNEUMONIA Time Seen by Provider: 10/30/16 08:49 Past History <Nena Kwon - Last Filed: 10/30/16 12:54> - Past Medical History Anemia: Yes Asthma: No Cancer: No Cardiac Disorders: Yes (PPM) CVA: No COPD: No CHF: Yes Dementia: Yes Diabetes: No GI Disorders: No Disorders: No HTN: Yes Hypercholesterolemia: Yes Liver Disease: No Suicide Attempt (Hx): No Seizures: No Thyroid Disease: No - Surgical History Abdominal Surgery: No Appendectomy: No Cardiac Surgery: Yes (permanent pacemaker in infraclavicular region ) Cholecystectomy: No Lung Surgery: No Neurologic Surgery: No Orthopedic Surgery: Yes (fx B wrists and clavicle) - Immunization History Td Vaccination: Yes TDAP Vaccination: Yes Immunization Up to Date: Yes - Psycho/Social/Smoking Cessation Hx Anxiety: No Suicidal Ideation: No Smoking Status: No Smoking History: Never smoked Have you smoked in the past 12 months: No Number of Cigarettes Smoked Daily: 0 If you are a former smoker, when did you quit?: 50 years ago Information on smoking cessation initiated: No Hx Alcohol Use: No Drug/Substance Use Hx: No Substance Use Type: None Hx Substance Use Treatment: No <Ash Martins - Last Filed: 10/30/16 16:38> - Past Medical History Allergies/Adverse Reactions: Allergies Allergy/AdvReac Type Severity Reaction Status Date / Time No Known Allergies Allergy Verified 10/30/16 08:54 Home Medications: Ambulatory Orders Allopurinol [Zyloprim -] 100 mg PO DAILY 10/30/16 Amlodipine Besylate [Norvasc -] 2.5 mg PO DAILY 10/30/16 Ascorbic Acid [Vitamin C] 500 mg PO 10/30/16 Citalopram Hydrobromide [Celexa -] 20 mg PO DAILY 10/30/16 Clonidine HCl 0.1 mg PO DAILY 10/30/16 Cyanocobalamin (Vitamin B-12) [B-12] 1,000 mcg PO DAILY 10/30/16 Fenofibrate,Micronized [Fenofibrate] 134 mg PO DAILY 10/30/16 Ferrous Sulfate 325 mg PO DAILY 10/30/16 Folic Acid 1 mg PO DAILY 10/30/16 Furosemide [Lasix -] 40 mg PO DAILY 10/30/16 Magnesium Chloride [Mag64] 2 tab PO DAILY 10/30/16 Metoprolol Tartrate [Lopressor -] 50 mg PO BID 10/30/16 Multivitamins [Tab-A-Vit -] 1 tab PO DAILY 10/30/16 Ranitidine [Zantac -] 150 mg PO BID 10/30/16 Review of Systems - Review of Systems Constitutional: No: Chills, Fever Respiratory: Yes: Cough, Shortness of Breath Cardiac (ROS): Yes: Chest Pain, Edema ABD/GI: No: Nausea, Vomiting Neurological: No: Headache All Other Systems: Reviewed and Negative <Ash Martins - Last Filed: 10/30/16 16:38> *Physical Exam - Vital Signs Last Vital Signs Temp Pulse Resp BP Pulse Ox 98 F 63 20 173/53 100 10/30/16 08:54 10/30/16 08:54 10/30/16 08:54 10/30/16 08:54 10/30/16 08:54 - Physical Exam Comments: 10/30/16 09:03 GENERAL: The patient is awake, alert, and fully oriented, in no acute distress. HEAD: Normal with no signs of trauma. EYES: Pupils equal, round and reactive to light, extraocular movements intact, sclera anicteric, conjunctiva clear with no pallor. ENT: Ears normal, nares patent, oropharynx clear without exudates. Dry mucous membranes. NECK: Normal range of motion, supple without lymphadenopathy, JVD, or masses. LUNGS: There is some slight left basilar crackles. HEART: There is a 2/6 systolic ejection murmur best heard at the right upper sternal border. ABDOMEN: Soft/nontender/nondistended. BS wnl. No guarding or rebound. No palpable masses. No hepatosplenomegaly. EXTREMITIES: Normal range of motion. Chronically edemadous right lower extremity with right ankle edema. The left lower extremity is also edemadous that extends to the knees. Dressing in place with some dry blood and some surrounding warmth but no obvious purulence or foul smelling odor. No clubbing or cyanosis. No cords, erythema, or tenderness. NEUROLOGICAL: Cranial nerves II through XII grossly intact. Normal speech. PSYCH: Normal mood, normal affect. SKIN: Warm, Dry, normal turgor, no rashes or lesions noted. <Nena Kwon - Last Filed: 10/30/16 12:54> - Vital Signs Last Vital Signs Temp Pulse Resp BP Pulse Ox 98 F 63 20 173/53 100 10/30/16 08:54 10/30/16 08:54 10/30/16 08:54 10/30/16 08:54 10/30/16 08:54 <Ash Martins - Last Filed: 10/30/16 16:38> Heart Score/ECG Review #1 ECG reviewed & interpreted by me at: 10:02 10/30/16 10:51 AV paced at 60, no secondary signs of acute ischemic change. <Ash Martins - Last Filed: 10/30/16 16:38> ED Treatment Course - LABORATORY CBC & Chemistry Diagram: 10/30/16 10:00 10/30/16 10:00 - RADIOLOGY Radiograph Interpretation: 10/30/16 10:59 EXAM: RAD/CHEST PA LAT IMPRESSION: Semierect portable chest x-ray. Comparison study October 05, 2016. Patient is rotated. Unchanged contour of the cardiomediastinal silhouette. Limited evaluation of the lung parenchyma in the left retrocardiac region. No airspace opacities are seen in the visualized lungs. No evidence of pneumothorax , vascular congestion. Left pacemaker with 2 intact leads. Dextroscoliosis of the thoracic spine. Right azygos lobe. <Nena Kwon - Last Filed: 10/30/16 12:54> - LABORATORY CBC & Chemistry Diagram: 10/30/16 10:00 10/30/16 10:00 <Ash Martins - Last Filed: 10/30/16 16:38> Medical Decision Making - Medical Decision Making 10/30/16 11:00 A call was placed to patient's Primary Care Physician, Dr. Neftali Garcia at . No answer. 10/30/16 11:[address] Brett Bautista. Immediate response. Case was discussed. Accepts case. 10/30/16 12:[address] Miky Mcdaniel at [phone]. Informed that he is in house. 10/30/16 12:[address] Miky Mcdaniel 10/30/16 12:[address] Miky Mcdaniel. Dr. Chastity Salinas will arrive later and examine the patient. <Nena Kwon - Last Filed: 10/30/16 12:54> - Medical Decision Making 10/30/16 09:56 A portion of this note was documented by scribe services under my direction. I have reviewed the details of the note, within reason, and agree with the documentation with the following case summary and management plan written by me. 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 No fevers or chills, no new cough. Lasix dose has recently been adjusted, adequately producing urine. Vitals as noted, O2 sat normal on her baseline supplemental oxygen Left basilar crackles Right upper sternal border murmur Left lower extremity edema with healing ulceration, some dried blood but no evidence of superimposed acute infectious process 89-year-old female with known CHF presents with shortness of breath and chest pain. Question ACS, question infectious process, seems to be diuresing appropriately with her increased Lasix dose, will check creatinine. Labs, urinalysis Chest x-ray, EKG Will give dose of aspirin Discuss with Dr. Villa and Dr. Garcia regarding best disposition for this patient 10/30/16 10:54 No leukocytosis, hemoglobin trending slightly downward but still 8.1, chemistrieswith slight prerenal azotemia and BUN of 43, creatinine baseline at 1 , troponin negative, BNP 9000, which is actually lower than the patient's prior baseline. Chest x-ray shows no evidence of congestion or infiltrate. Will discuss with Dr. Garcia and Dr. Villa and dispo accordingly 10/30/16 16:[address] Salinas at bedside, will check 2nd troponin and LLE doppler. 10/30/16 16:38 Accepted for obs tele by Dr. Bautista. <Ash Martins - Last Filed: 10/30/16 16:38> *DC/Admit/Observation/Transfer - Attestations Scribe Attestion: 10/30/16 09:03 Documentation prepared by Nena Kwon, acting as medical or surgical instrument maker for Ash Martins MD. <Nena Kwon - Last Filed: 10/30/16 12:54> - Discharge Dispostion Admit: Yes <Ash Martins - Last Filed: 10/30/16 16:38> Diagnosis at time of Disposition: Shortness of breath CHF (congestive heart failure) Qualifiers: Congestive heart failure type: unspecified congestive heart failure type Congestive heart failure chronicity: chronic Qualified Code(s): I50.9 - Heart failure, unspecified - Discharge Dispostion Condition at time of disposition: Fair - Referrals Referrals: Neftali Garcia MD [Primary Care Provider] -
[2016-10-30] MEDS ORDERED: ASPIRIN 81 MG CHEWABLE TABLETS PO ONE (09:33)
[2016-10-30] MEDS ORDERED: ACETAMINOPHEN 500 MG TABLET (FP) PO ONE (09:35)
[2016-10-30] MEDS ORDERED: ASPIRIN 81 MG CHEWABLE TABLETS ONE (09:46)
[2016-10-30] MEDS ORDERED: ACETAMINOPHEN 325 MG TABLET (FP) ONE (09:46)
[2016-10-30 10:14] LABS: BASOPHIL 1.1 % (0-2.0); MCH 33.2 pg (25.7-33.7); MCHC 32.5 g/dl (32.0-36.0); MEAN CELL VOLUME 102.3 fl (80-96); MEAN PLT VOLUME 7.8 fl (7.5-11.1); NEUTROPHILS 62.7 % (42.8-82.8); PLATELET COUNT 136 K/MM3 (134-434); RDW 22.8 % (11.6-15.6); WHITE BLOOD COUNT 4.3 K/mm3 (4.0-10.0)
[2016-10-30 10:20] LABS: URINE APPEARANCE CLEAR; URINE BILIRUBIN NEGATIVE (NEGATIVE); URINE BLOOD NEGATIVE (NEGATIVE); URINE COLOR LTYELLOW; URINE GLUCOSE (UA) NEGATIVE (NEGATIVE); URINE KETONE NEGATIVE (NEGATIVE); URINE LEUK ESTERASE NEGATIVE (NEGATIVE); URINE NITRITE NEGATIVE (NEGATIVE); URINE UROBILINOGEN NEGATIVE E.U./dl (0.2-1.0)
[2016-10-30 10:29] LABS: URINE PROTEIN 1+ (NEGATIVE)
[2016-10-30 10:34] LABS: URINE HYALINE CAST 1 /lpf; URINE MUCUS RARE; URINE WBC 2 /hpf (3-5)
[2016-10-30 10:36] LABS: ALBUMIN 3.2 g/dl (3.4-5.0); BILIRUBIN,TOTAL 0.5 mg/dL (0.2-1.0); CALCIUM 9.8 mg/dL (8.5-10.1); MAGNESIUM 2.4 mg/dL (1.8-2.4); TOT PROT 5.7 g/dl (6.4-8.2)
[2016-10-30 10:39] LABS: INR 1.17 (0.82-1.09); PROTHROMBIN TIME (PATIENT) 12.9 SEC (9.98-11.88); TROPONIN I 0.03 ng/ml (0.00-0.05)
[2016-10-30 11:51] LABS: ANISOCYTOSIS 1+; FRAGMENTED CELL 1+; HYPOCHROMIA 1+; MICROCYTOSIS 1+; STOMATOCYTE 4+; TEAR DROP CELLS RARE
[2016-10-30 11:52] LABS: SCHISTOCYTES 1+
--- NOTE | 2016-10-30 13:47 | EKG ---
Test Reason : Blood Pressure : / mmHG Vent. Rate : 060 BPM Atrial Rate : 060 BPM P-R Int : 208 ms QRS Dur : 186 ms QT Int : 472 ms P-R-T Axes : 116 -73 098 degrees QTc Int : 472 ms AV dual-paced rhythm ABNORMAL ECG WHEN COMPARED WITH ECG OF 29-SEP-2016 17:47, VENT. RATE HAS DECREASED BY 39 BPM Confirmed by ARABELLA FERNÁNDEZ MD ([id number]) on 10/30/2016 1:47:13 PM Referred By: Confirmed By:ARABELLA FERNÁNDEZ MD
--- NOTE | 2016-10-30 14:10 | CON.CARD ---
Cardiology Consult (text) - Consultation Consultation Note: CC: sob, cp 89 year old female hx htn, hld, ppm (medtronic), ckd, dchf/venous insuff/le edema. chronic anemia, and LE cellulitis s/p debridement followed by wound care (monitors other chronic wounds as well) who presents with sob/CP. Patient states she has a poor memory and denies sob or cp. Can only remember feeling muscle aches and weakness. Currently denies symptoms. Her LLE is significantly swollen but states it is at baseline. Recently seen by Dr. bradshaw s/p hospitalization. Had not made medication changes after discharge. Dr. Bradshaw resumed her clonidine and increased lasix back to 40 mg/ daily. Endorses tolerating these changes with stable blood pressures. Pt denies cp, sob, palps, dizzy, loc, pnd, orthopnea, bleeding claudication. Denies f/c/s, n/v/d, poor po intake, cough, congestion, rashes, headache. Sees dr bradshaw for cardio. PMHx/Pshx: per hpi, additionally, gout, depression. social hx: former smoker, no etoh or illicits. lives with son in law. fam hx: no premature cad ros: per hpi Ambulatory Orders Allopurinol [Zyloprim -] 100 mg PO DAILY 10/30/16 Amlodipine Besylate [Norvasc -] 2.5 mg PO DAILY 10/30/16 Ascorbic Acid [Vitamin C] 500 mg PO 10/30/16 Citalopram Hydrobromide [Celexa -] 20 mg PO DAILY 10/30/16 Clonidine HCl 0.1 mg PO DAILY 10/30/16 Cyanocobalamin (Vitamin B-12) [B-12] 1,000 mcg PO DAILY 10/30/16 Fenofibrate,Micronized [Fenofibrate] 134 mg PO DAILY 10/30/16 Ferrous Sulfate 325 mg PO DAILY 10/30/16 Folic Acid 1 mg PO DAILY 10/30/16 Furosemide [Lasix -] 40 mg PO DAILY 10/30/16 Magnesium Chloride [Mag64] 2 tab PO DAILY 10/30/16 Metoprolol Tartrate [Lopressor -] 50 mg PO BID 10/30/16 Multivitamins [Tab-A-Vit -] 1 tab PO DAILY 10/30/16 Ranitidine [Zantac -] 150 mg PO BID 10/30/16 Vital Signs - 24 hr 10/30/16 10/30/16 10/30/16 08:54 10:36 12:32 Temperature 98 F Pulse Rate 63 Pulse Rate [ 62 Apical] Respiratory 20 19 Rate Blood Pressure 173/53 Blood Pressure 138/79 [Right Arm] O2 Sat by Pulse 100 100 99 Oximetry (%) Intake & Output 10/28/16 10/29/16 10/30/16 10/31/16 07:59 07:59 07:59 07:59 Weight 140 lb nad no jvd rrr s1s2 no mrg cta bl nl eff alert awake, appropriate 1+ le edema on left only with venous stasis changes and dressing to LLE wound, no c/c abd nt nd pos bs no jaundice diaphoresis diminished dp pt aaox2 CBC, BMP 10/30/16 10:00 10/30/16 10:00 Laboratory Tests 06/18/16 10/30/16 10/30/16 14:30 10:00 10:00 INR 1.17 H Magnesium 2.4 Troponin I 0.03 B-Natriuretic Peptide 45214.02 H Albumin 3.2 L 10/30/16 10:00 INR Magnesium Troponin I B-Natriuretic Peptide 9341.79 H Albumin cxr (images and report reviewed): no infiltrates. appears similar to prior. by my review, persistent left effusion. ecg (images and report reviewed): sequential av pacing Echo 06/2016: Mod LVH with basal septal thickening. Mod MR/TR/ trace-mild AR. RVSP 40-50. sob/chest discomfort - unable to get accurate history due to poor memory. Unable to assess for ischemia on ekg b/c v-paced. Therefore would get second set of cardiac enzymes. - Asymmetric LE edema, would rule out LE dvt with doppler. - otherwise, currently is asx. htn: - stable, would con't outpatient regimen hld: -on trilipix, cont home regimen ppm: -normal check in office 02/2016, - continue routine outpt checks ckd: - cr stable. BUN slightly elevated, would reassess in am. Standing weight if possible. Can consider decreasing lasix dose back to 20 mg alternating with 40 mg if patient is significantly below dry weight. anemia: -hgb at baseline
[2016-10-30] MEDS ORDERED: ONDANSETRON 4 MG/2 ML VIAL IVPB PRN (16:40)
[2016-10-30] MEDS ORDERED: ACETAMINOPHEN 325 MG TABLET (FP) PO PRN (16:40)
--- NOTE | 2016-10-30 16:48 | HP ---
Admitting History and Physical - Primary Care Physician PCP: Neftali Garcia - Admission Chief Complaint: I feel yucky History of Present Illness: Ms Desouza is a very pleasant 89 year old female who was recently discharged with cellulitis and wound infection who comes in with shortness of breath. Ms Desouza has a history of dementia so often in unclear in her history. She says that she was feeling bad when she came in, when asked for further clarification she says she feels "yucky all over". She denies fevers, chills, lightheadedness, dizziness, shortness of breath, nausea, vomiting, diarrhea, constipation, difficulty or pain on urination, or pain in her legs. She says she has a cough that is chronic and unchanged. She says she started having chest pain this morning, saying it was more of a soreness and felt when she coughed. Per the ER physician who spoke with the son in who is the laboratory animal caretaker , he noted that patient had a prolonged episode of shortness of breath at home. Because of that he brought her in. This tachypnea was not noted here. History Source: Patient, Medical Record Limitations to Obtaining History: Dementia - Past Medical History CRAPS DEALER: Yes: Dementia Cardiovascular: Yes: CHF, HTN, Hyperlipdemia, Pulmonary Hypertension, Other ( pacemaker) Pulmonary: Yes: Other (pleural effusions) Gastrointestinal: Yes: Other (Clostridia difficile colitis , ventral hernia) Heme/Onc: Yes: Anemia Infectious Disease: Yes: C-Diff Psych: Yes: Depression Rheumatology: Yes: Gout - Past Surgical History Past Surgical History: Yes: Permanent Pacemaker, Tonsillectomy - Smoking History Smoking history: Never smoked Have you smoked in the past 12 months: No Aproximately how many cigarettes per day: 0 If you are a former smoker, when did you quit?: 50 years ago - Alcohol/Substance Use Hx Alcohol Use: No History of Substance Use: reports: None - Social History Usual Living Arrangement: Yes: With Child ADL: Family Assistance History of Recent Travel: No Home Medications - Allergies Allergies/Adverse Reactions: Allergies Allergy/AdvReac Type Severity Reaction Status Date / Time No Known Allergies Allergy Verified 10/30/16 08:54 - Home Medications Home Medications: Ambulatory Orders Allopurinol [Zyloprim -] 100 mg PO DAILY 10/30/16 Amlodipine Besylate [Norvasc -] 2.5 mg PO DAILY 10/30/16 Ascorbic Acid [Vitamin C] 500 mg PO 10/30/16 Citalopram Hydrobromide [Celexa -] 20 mg PO DAILY 10/30/16 Clonidine HCl 0.1 mg PO DAILY 10/30/16 Cyanocobalamin (Vitamin B-12) [B-12] 1,000 mcg PO DAILY 10/30/16 Fenofibrate,Micronized [Fenofibrate] 134 mg PO DAILY 10/30/16 Ferrous Sulfate 325 mg PO DAILY 10/30/16 Folic Acid 1 mg PO DAILY 10/30/16 Furosemide [Lasix -] 40 mg PO DAILY 10/30/16 Magnesium Chloride [Mag64] 2 tab PO DAILY 10/30/16 Metoprolol Tartrate [Lopressor -] 50 mg PO BID 10/30/16 Multivitamins [Tab-A-Vit -] 1 tab PO DAILY 10/30/16 Ranitidine [Zantac -] 150 mg PO BID 10/30/16 Family Disease History - Family Disease History Family Disease History: Heart Disease: Sister, Respiratory: Father (TB, COPD), Other: Father, Mother ( of ruptured appendix), Brother (bladder cancer) Review of Systems Findings/Remarks: Full review of systems obtained, as per HPI and otherwise negative. May be inaccurate secondary to dementia. Physical Examination Vital Signs: Vital Signs Temperature 98 F 10/30/16 08:54 Pulse Rate 62 10/30/16 12:32 Respiratory Rate 19 10/30/16 12:32 Blood Pressure 138/79 10/30/16 12:32 O2 Sat by Pulse Oximetry (%) 99 10/30/16 12:32 Constitutional: Yes: No Distress, Calm, Obese Eyes: Yes: Conjunctiva Clear, EOM Intact HENT: Yes: Atraumatic, Normocephalic Cardiovascular: Yes: Regular Rate and Rhythm. No: Gallop, Murmur, Rub Respiratory: Yes: Regular, CTA Bilaterally, Cough. No: Rales, Rhonchi, Wheezes Gastrointestinal: Yes: Normal Bowel Sounds, Soft. No: Distention, Tenderness Extremities: Yes: Erythema (chronic) Edema: Yes Edema: LLE: 1+, RLE: 1+ Labs: CBC, BMP 10/30/16 10:00 10/30/16 10:00 Imaging - Results Chest X-ray: Report Reviewed, Image Reviewed EKG: Image Reviewed Problem List - Problems (1) Chest pain Assessment/Plan: -sounds atypical, but difficult to ascertain secondary to history -cardiology consulted -recommends admission under observation for cardiac enzymes -monitor on telemetry Code(s): R07.9 - CHEST PAIN, UNSPECIFIED (2) Edema leg Assessment/Plan: -check duplex dopplers to evaluate for possible DVT Code(s): R60.0 - LOCALIZED EDEMA Qualifiers: Laterality: bilateral Qualified Code(s): R60.0 - Localized edema (3) CHF (congestive heart failure) Assessment/Plan: -not in exacerbation -continue current management -cardiology to adjust lasix as needed Code(s): I50.9 - HEART FAILURE, UNSPECIFIED Qualifiers: Congestive heart failure type: systolic Congestive heart failure chronicity: chronic Qualified Code(s): I50.22 - Chronic systolic ( congestive) heart failure (4) Shortness of breath Assessment/Plan: -not seen in the hospital -monitor overnight Code(s): R06.02 - SHORTNESS OF BREATH (5) Anemia Assessment/Plan: -at baseline Code(s): D64.9 - ANEMIA, UNSPECIFIED (6) Gout Assessment/Plan: -continue allopurinol Code(s): M10.9 - GOUT, UNSPECIFIED (7) HLD (hyperlipidemia) Assessment/Plan: -continue trilipix Code(s): E78.5 - HYPERLIPIDEMIA, UNSPECIFIED (8) HTN (hypertension) Assessment/Plan: -continue clonidine, metoprolol, and amlodipine Code(s): I10 - ESSENTIAL (PRIMARY) HYPERTENSION
[2016-10-30 18:21] LABS: TROPONIN I 0.03 ng/ml (0.00-0.05)
[2016-10-30] MEDS: RANITIDINE HCL 150 MG TABLET (FP) PO SCH (21:04)
[2016-10-30] MEDS: METOPROLOL TARTRATE 50 MG TABLET (FP) PO SCH (21:04)
[2016-10-30] MEDS: HEPARIN NA (PORCINE) 5,000 UNITS/ML 1ML VIAL SQ SCH (21:04)
[2016-10-31 03:52] VITALS: TEMP 98.2
[2016-10-31 06:54] LABS: BASOPHIL 1.2 % (0-2.0); EOSINOPHIL 5.8 % (0-4.5); MCH 33.5 pg (25.7-33.7); MCHC 32.8 g/dl (32.0-36.0); MEAN CELL VOLUME 102.1 fl (80-96); NEUTROPHILS 57.9 % (42.8-82.8); PLATELET COUNT 129 K/MM3 (134-434); WHITE BLOOD COUNT 4.6 K/mm3 (4.0-10.0)
[2016-10-31 07:24] LABS: CALCIUM 9.3 mg/dL (8.5-10.1)
[2016-10-31 07:28] LABS: CREATININE 0.9 mg/dL (0.55-1.02); MAGNESIUM 2.3 mg/dL (1.8-2.4); PHOSPHOROUS 2.9 mg/dL (2.5-4.9)
[2016-10-31] MEDS ORDERED: MAGNESIUM CL 64 MG TABLET.SA PO SCH (10:00)
[2016-10-31] MEDS ORDERED: CYANOCOBALAMIN 1,000 MCG TABLET (FP) PO SCH (10:00)
[2016-10-31] MEDS ORDERED: PATIENT'S OWN MEDICATION (NON-FORMULARY) (Ferrous Sulfate [Ferrous Sulfate] 325 MG) PO SCH (10:00)
[2016-10-31] MEDS ORDERED: CITALOPRAM HYDROBROMIDE 20 MG TABLET (FP) PO SCH (10:00)
[2016-10-31] MEDS ORDERED: MAGNESIUM CHLORIDE PO SCH (10:00)
[2016-10-31] MEDS ORDERED: MULTIVITAMINS (DAILY MVI) TABLET (FP) PO SCH (10:00)
[2016-10-31] MEDS ORDERED: CYANOCOBALAMIN 1000 MCG PO SCH (10:00)
[2016-10-31] MEDS ORDERED: cloNIDine HCL 0.1 MG TABLET PO SCH ×2 (10:00)
[2016-10-31] MEDS ORDERED: PATIENT'S OWN MEDICATION (NON-FORMULARY) (Fenofibrate,Micronized [Fenofibrate] 134 MG) PO SCH (10:00)
[2016-10-31] MEDS ORDERED: ALLOPURINOL 100 MG TABLET (FP) PO SCH (10:00)
[2016-10-31] MEDS ORDERED: amLODIPine BESYLATE 2.5 MG TABLET (FP) PO SCH (10:00)
[2016-10-31] MEDS ORDERED: FUROSEMIDE 40 MG TABLET (FP) PO SCH (10:00)
[2016-10-31] MEDS ORDERED: FOLIC ACID 1 MG TABLET (FP) PO SCH (10:00)
[2016-10-31] MEDS ORDERED: FENOFIBRIC ACID 135 MG CAP PO SCH (10:00)
[2016-10-31] MEDS ORDERED: [UNRECOGNIZED DRUG - OTHER] PO SCH (10:00)
[2016-10-31] MEDS ORDERED: FERROUS SO4 325 MG TABLET (FP) PO SCH (10:00)
[2016-10-31] MEDS: METOPROLOL TARTRATE 50 MG TABLET (FP) PO SCH (10:13)
[2016-10-31] MEDS: HEPARIN NA (PORCINE) 5,000 UNITS/ML 1ML VIAL SQ SCH (10:13)
[2016-10-31] MEDS: RANITIDINE HCL 150 MG TABLET (FP) PO SCH (10:14)
[2016-10-31] MEDS ORDERED: PT OWN MED DRAWER 7, Y5N ONE (10:19)
--- NOTE | 2016-10-31 11:27 | PN ---
Progress Note (short form) - Note Progress Note: s: no cp sob palps dizzy orthopnea o: Vital Signs Period Temp Pulse Resp BP Sys/Cohen Pulse Ox Last 24 Hr 98.2 F-98.3 F 62-78 18-20 138-181/61-79 3-100 nad no jvd rrr s1s2 no mrg cta bl nl eff alert awake, appropriate trace+ le edema on left only with venous stasis changes and dressing to LLE wound, no c/c abd nt nd pos bs no jaundice diaphoresis Current Medications Generic Name Dose Route Start Last Admin Trade Name Freq PRN Reason Stop Dose Admin Acetaminophen 650 mg 10/30/16 16:40 10/30/16 20:13 Tylenol - PO 650 mg Q4H PRN Administration FEVER OR PAIN Allopurinol 100 mg 10/31/16 10:00 10/31/16 10:16 Zyloprim - PO 100 mg DAILY BELEN Administration Amlodipine Besylate 2.5 mg 10/31/16 10:00 10/31/16 10:14 Norvasc - PO 2.5 mg DAILY BELEN Administration Citalopram Hydrobromide 20 mg 10/31/16 10:00 10/31/16 10:12 Celexa - PO 20 mg DAILY BELEN Administration Clonidine 0.1 mg 10/31/16 10:00 10/31/16 10:11 Catapres - PO 0.1 mg BID BELEN Administration Cyanocobalamin 1,000 mcg 10/31/16 10:00 10/31/16 10:14 Vitamin B12 - PO 1,000 mcg DAILY BELEN Administration Fenofibric Acid 135 mg 10/31/16 10:00 10/31/16 10:14 Trilipix - PO 135 mg DAILY BELEN Administration Ferrous Sulfate 325 mg 10/31/16 10:00 10/31/16 10:12 Feosol - PO 325 mg DAILY BELEN Administration Folic Acid 1 mg 10/31/16 10:00 10/31/16 10:13 Folic Acid - PO 1 mg DAILY BELEN Administration Furosemide 40 mg 10/31/16 10:00 10/31/16 10:13 Lasix - PO 40 mg DAILY BELEN Administration Heparin Sodium (Porcine) 5,000 unit 10/30/16 22:00 10/31/16 10:13 Heparin - SQ 5,000 unit BID BELEN Administration Magnesium Chloride 128 mg 10/31/16 10:00 Slow-Mag - PO DAILY BELEN Metoprolol Tartrate 50 mg 10/30/16 22:00 10/31/16 10:13 Lopressor - PO 50 mg BID BELEN Administration Multivitamins/Minerals/Vitamin C 1 tab 10/31/16 10:00 10/31/16 10:14 Tab-A-Vit - PO 1 tab DAILY BELEN Administration Ondansetron HCl 4 mg 10/30/16 16:40 Zofran Injection IVPB Q6H PRN NAUSEA Ranitidine HCl 150 mg 10/30/16 22:00 10/31/16 10:14 Zantac - PO 150 mg BID BELEN Administration CBC, BMP 10/31/16 05:35 10/31/16 05:35 cxr (images and report reviewed): no infiltrates. appears similar to prior. by my review, persistent left effusion. ecg (images and report reviewed): sequential av pacing tele: a-v pacing Echo 06/2016: Mod LVH with basal septal thickening. Mod MR/TR/ trace-mild AR. RVSP 40-50. a/p: sob/chest discomfort - unable to get accurate history due to poor memory. Unable to assess for ischemia on ekg b/c v-paced. - cardiac markers neg x2, no further sxs, no signs acs or chf htn: -cont home meds hld: -on trilipix, cont home regimen ppm: -normal check in office 02/2016 - continue routine outpt checks ckd: - cr stable, cont home diuretic anemia: -hgb at baseline cardiac [facility] stable for dc
[2016-10-31 11:47] LABS: HYPOCHROMIA 3+
[2016-10-31 11:48] LABS: ANISOCYTOSIS 3+; MICROCYTOSIS 1+
[2016-10-31 14:41] VITALS: BP 159/68; PULSE 66
--- NOTE | 2016-10-31 15:31 | DS ---
Physical Examination Vital Signs: Vital Signs Temperature 98.2 F 10/31/16 10:00 Pulse Rate 66 10/31/16 14:00 Respiratory Rate 20 10/31/16 10:00 Blood Pressure 159/68 10/31/16 14:00 O2 Sat by Pulse Oximetry (%) 99 10/31/16 09:00 Constitutional: Yes: Well Nourished, No Distress, Calm Cardiovascular: Yes: Regular Rate and Rhythm. No: Gallop, Murmur, Rub Respiratory: Yes: Regular, CTA Bilaterally. No: Rales, Rhonchi, Wheezes Gastrointestinal: Yes: Normal Bowel Sounds, Soft. No: Distention, Tenderness Extremities: Yes: WNL Edema: Yes Edema: LLE: 1+, RLE: 1+ Labs: CBC, BMP 10/31/16 05:35 10/31/16 05:35 Discharge Summary Reason For Visit: SHORTNESS OF BREATH Current Active Problems CHF (congestive heart failure) (Acute) Chest pain (Acute) Edema leg (Acute) Shortness of breath (Acute) Hospital Course: (1) Chest pain Code(s): R07.9 - CHEST PAIN, UNSPECIFIED (2) Edema leg Code(s): R60.0 - LOCALIZED EDEMA Qualifiers: Laterality: bilateral Qualified Code(s): R60.0 - Localized edema (3) CHF (congestive heart failure) Code(s): I50.9 - HEART FAILURE, UNSPECIFIED Qualifiers: Congestive heart failure type: systolic Congestive heart failure chronicity: chronic Qualified Code(s): I50.22 - Chronic systolic ( congestive) heart failure (4) Shortness of breath Code(s): R06.02 - SHORTNESS OF BREATH (5) Anemia Code(s): D64.9 - ANEMIA, UNSPECIFIED (6) Gout Code(s): M10.9 - GOUT, UNSPECIFIED (7) HLD (hyperlipidemia) Code(s): E78.5 - HYPERLIPIDEMIA, UNSPECIFIED (8) HTN (hypertension) Code(s): I10 - ESSENTIAL (PRIMARY) HYPERTENSION Ms Desouza is a very pleasant 89 year old female who comes in with possible shortness of breath. She was admitted under observation. She was seen by cardiology. She had a duplex dopplers that was negative. She was monitored on telemetry and remained in normal sinus rhythm. Cardiac enzymes sent and negative. She remained comfortable and did not have shortness of breath here. Currently she is stable for discharge home. Condition: Stable - Instructions Diet, Activity, Other Instructions: resume previous diet and activity Referrals: Chastity Salinas MD [Staff Physician] - Neftali Garcia MD [Primary Care Provider] - Disposition: HOME - Home Medications Comprehensive Discharge Medication List: Ambulatory Orders Allopurinol [Zyloprim -] 100 mg PO DAILY 10/30/16 Amlodipine Besylate [Norvasc -] 2.5 mg PO DAILY 10/30/16 Ascorbic Acid [Vitamin C] 500 mg PO 10/30/16 Citalopram Hydrobromide [Celexa -] 20 mg PO DAILY 10/30/16 Cyanocobalamin (Vitamin B-12) [B-12] 1,000 mcg PO DAILY 10/30/16 Fenofibrate,Micronized [Fenofibrate] 134 mg PO DAILY 10/30/16 Ferrous Sulfate 325 mg PO DAILY 10/30/16 Folic Acid 1 mg PO DAILY 10/30/16 Furosemide [Lasix -] 40 mg PO DAILY 10/30/16 Magnesium Chloride [Mag64] 2 tab PO DAILY 10/30/16 Metoprolol Tartrate [Lopressor -] 50 mg PO BID 10/30/16 Multivitamins [Multivit ([facility] Formul[facility])] 1 tab PO DAILY 10/30/16 Ranitidine [Zantac -] 150 mg PO BID 10/30/16 Clonidine HCl [Catapres -] 0.1 mg PO BID #60 tablet 10/31/16
== END 2016-10-31 15:44 | disposition home or self-care (01) ==
LOC: JER 08:33 → JERBED 16:38 → INTOOBSV 16:42 → UNDOADMOB 16:42 → J4W 19:40
PROVIDERS: ADMIT Internal Medicine; ATTEND Internal Medicine
DX: R06.02 Shortness of breath (principal); I13.0 Hypertensive heart and chronic kidney disease with heart failure and stage 1 through stage 4 chronic kidney disease, or unspecified chronic kidney disease; N18.9 Chronic kidney disease, unspecified; I50.22 Chronic systolic (congestive) heart failure; D64.9 Anemia, unspecified; I27.2 Other secondary pulmonary hypertension; F03.90 Unspecified dementia, unspecified severity, without behavioral disturbance, psychotic disturbance, mood disturbance, and anxiety; I87.2 Venous insufficiency (chronic) (peripheral); E78.00 Pure hypercholesterolemia, unspecified; M10.9 Gout, unspecified; F32.89 Other specified depressive episodes; Z99.81 Dependence on supplemental oxygen; Z87.891 Personal history of nicotine dependence; Z95.0 Presence of cardiac pacemaker
CPT/HCPCS: 36415; 71020-TC; 80048; 80053; 81003; 81015; 82550; 83735; 83880; 84100; 84484; 85025; 85610; 93005; 93010; 93971-TC; 99284-25; G0378; J1644

== ENCOUNTER 2016-12-09 19:11 | Inpatient (IN) | payer BC, OTHER ==
--- NOTE | 2016-12-09 19:35 | PDOC ---
History of Present Illness - General History Source: Patient Exam Limitations: No Limitations - History of Present Illness Initial Comments: 12/09/16 19:39 Patient is a 89 year old female with significant past medical history of COPD, HTN, gout, chronic lymphedema bilaterally, pacemaker in place and CHF who presents to the ED via s/p mechanical fall. Patient ambulates using a walker and fell today hurting her left leg. She reports pain to the left lower extremity from knee down to the toes. She states that she is experiencing back pain after the fall as well. Social history - lives at home with son Vascular surgery- Dr. Efrain Schrader <Agnieszka Granda - Last Filed: 12/09/16 22:21> <Blanquita Larsen - Last Filed: 12/11/16 00:09> - General Stated Complaint: FALL Time Seen by Provider: 12/09/16 19:34 Past History <Agnieszka Granda - Last Filed: 12/09/16 22:21> - Past Medical History Anemia: Yes Asthma: No Cancer: No Cardiac Disorders: Yes (PPM) CVA: No COPD: No CHF: Yes Dementia: Yes Diabetes: No GI Disorders: No Disorders: No HTN: Yes Hypercholesterolemia: Yes Liver Disease: No Suicide Attempt (Hx): No Seizures: No Thyroid Disease: No - Surgical History Abdominal Surgery: No Appendectomy: No Cardiac Surgery: Yes (permanent pacemaker in infraclavicular region ) Cholecystectomy: No Lung Surgery: No Neurologic Surgery: No Orthopedic Surgery: Yes (fx B wrists and clavicle) - Immunization History Td Vaccination: Yes TDAP Vaccination: Yes Immunization Up to Date: Yes - Psycho/Social/Smoking Cessation Hx Anxiety: No Suicidal Ideation: No Smoking Status: No Smoking History: Never smoked Have you smoked in the past 12 months: No Number of Cigarettes Smoked Daily: 0 If you are a former smoker, when did you quit?: 50 years ago Hx Alcohol Use: No Drug/Substance Use Hx: No Substance Use Type: None Hx Substance Use Treatment: No <Blanquita Larsen - Last Filed: 12/11/16 00:09> - Past Medical History Allergies/Adverse Reactions: Allergies Allergy/AdvReac Type Severity Reaction Status Date / Time No Known Allergies Allergy Verified 12/09/16 19:45 Home Medications: Ambulatory Orders Allopurinol [Zyloprim -] 100 mg PO DAILY 10/30/16 Amlodipine Besylate [Norvasc -] 10 mg PO DAILY 10/30/16 Ascorbic Acid [Vitamin C] 500 mg PO DAILY 10/30/16 Citalopram Hydrobromide [Celexa -] 20 mg PO DAILY 10/30/16 Cyanocobalamin (Vitamin B-12) [B-12] 1,000 mcg PO DAILY 10/30/16 Fenofibrate,Micronized [Fenofibrate] 135 mg PO DAILY 10/30/16 Ferrous Sulfate 325 mg PO DAILY 10/30/16 Folic Acid 1 mg PO DAILY 10/30/16 Furosemide [Lasix -] 40 mg PO DAILY 10/30/16 Magnesium Chloride [Mag64] 2 tab PO DAILY 10/30/16 Metoprolol Tartrate [Lopressor -] 50 mg PO BID 10/30/16 Multivitamins [Multivit ([facility] Formul[facility])] 1 tab PO DAILY 10/30/16 Ranitidine [Zantac -] 150 mg PO BID 10/30/16 Clonidine HCl [Catapres -] 0.1 mg PO BID #60 tablet 10/31/16 Carvedilol 6.25 mg PO BID 12/09/16 Hydralazine HCl [Apresoline -] 25 mg PO BID 12/09/16 Review of Systems - Review of Systems Able to Perform ROS?: Yes Comments:: 12/09/16 19:40 CONSTITUTIONAL: Absent: fever, chills, diaphoresis, generalized weakness, malaise, loss of appetite HEENT: Absent: rhinorrhea, nasal congestion, throat pain, throat swelling, difficulty swallowing, mouth swelling, ear pain, eye pain, visual Changes CARDIOVASCULAR: Absent: chest pain, syncope, palpitations, irregular heart rate, lightheadedness , peripheral edema RESPIRATORY: Absent: cough, shortness of breath, dyspnea with exertion, orthopnea, wheezing, stridor, hemoptysis GASTROINTESTINAL: Absent: abdominal pain, abdominal distension, nausea, vomiting, diarrhea, constipation, melena, hematochezia GENITOURINARY: Absent: dysuria, frequency, urgency, hesitancy, hematuria, flank pain, genital pain MUSCULOSKELETAL: Present: left lower extremity pain, back pain Absent: myalgia, arthralgia, joint swelling SKIN: Absent: rash, itching, pallor HEMATOLOGIC/IMMUNOLOGIC: Absent: easy bleeding, easy bruising, lymphadenopathy, frequent infections ENDOCRINE: Absent: unexplained weight gain, unexplained weight loss, heat intolerance, cold intolerance NEUROLOGIC: Absent: headache, focal weakness or paresthesias, dizziness, unsteady gait, seizure, mental status changes, bladder or bowel incontinence PSYCHIATRIC: Absent: anxiety, depression, suicidal or homicidal ideation, hallucinations. <Agnieszka Granda - Last Filed: 12/09/16 22:21> *Physical Exam - Physical Exam Comments: 12/09/16 19:40 GENERAL: Well developed, well nourished. Awake and alert. No acute distress. HEENT: Normocephalic, atraumatic. PERRLA, EOMI. No conjunctival pallor. Sclera are non- icteric. Moist mucous membranes. Oropharynx is clear. NECK: Supple. Full ROM. No JVD. Carotid pulses 2+ and symmetric, without bruits. No thyromegaly. No lymphadenopathy. CHEST: +Right anterior chest pain, +Right sided anterior rib cage and posterior rib cage CARDIOVASCULAR: Regular rate and rhythm. No murmurs, rubs, or gallops. Distal pulses are 2+ and symmetric. PULMONARY: No evidence of respiratory distress. Lungs clear to auscultation bilaterally. No wheezing, rales or rhonchi. ABDOMINAL: Soft. Non-tender. Non-distended. No rebound or guarding. No organomegaly. Normoactive bowel sounds. MUSCULOSKELETAL Normal range of motion at all joints. No bony deformities or tenderness. No CVA tenderness. EXTREMITIES: +Pedal edema and pitting edema bilaterally, +Moving all extremities, +Bilateral lymphedema in lower extremities left bigger than the right, +weeping wound on left No cyanosis. No calf tenderness. SKIN: Warm and dry. Normal capillary refill. No rashes. No jaundice. NEUROLOGICAL: Alert, awake, appropriate. Cranial nerves 2-12 intact. No deficits to light touch and temperature in face, upper extremities and lower extremities. No motor deficits in the in face, upper extremities and lower extremities. Normoreflexic in the upper and lower extremities. Normal speech. PSYCHIATRIC: Cooperative. Good eye contact. Appropriate mood and affect. <Agnieszka Granda - Last Filed: 12/09/16 22:21> ED Treatment Course - LABORATORY CBC & Chemistry Diagram: 12/09/16 19:45 12/09/16 19:45 <Agnieszka Granda - Last Filed: 12/09/16 22:21> - LABORATORY CBC & Chemistry Diagram: 12/10/16 06:40 12/10/16 06:40 <Blanquita Larsen - Last Filed: 12/11/16 00:09> Medical Decision Making - Medical Decision Making 12/09/16 22:21 A call was placed to Dr. Bautista at his service. Awaiting a call back. <Agnieszka Granda - Last Filed: 12/09/16 22:21> *DC/Admit/Observation/Transfer - Attestations Scribe Attestion: 12/09/16 19:44 Documentation prepared by JODI Fernando, acting as medical device engineer for Blanquita Larsen MD. <Agnieszka Granda - Last Filed: 12/09/16 22:21> - Discharge Dispostion Admit: Yes <Blanquita Larsen - Last Filed: 12/11/16 00:09> Diagnosis at time of Disposition: Gait instability Anemia Qualifiers: Anemia type: other cause Other causes of anemia: chronic disease, other Qualified Code(s): D63.8 - Anemia in other chronic diseases classified elsewhere Contusion of left leg Qualifiers: Encounter type: initial encounter Qualified Code(s): S80.12XA - Contusion of left lower leg, initial encounter Multiple rib fractures Qualifiers: Encounter type: initial encounter Fracture type: closed Laterality: right Qualified Code(s): S22.41XA - Multiple fractures of ribs, right side, initial encounter for closed fracture Fall Qualifiers: Encounter type: initial encounter Qualified Code(s): W19.XXXA - Unspecified fall, initial encounter - Referrals
[2016-12-09 20:09] LABS: MCH 34.2 pg (25.7-33.7); MCHC 33.3 g/dl (32.0-36.0); MEAN PLT VOLUME 8.8 fl (7.5-11.1); PLATELET COUNT 173 K/MM3 (134-434); RDW 18.7 % (11.6-15.6)
[2016-12-09 20:22] LABS: INR 1.3 (0.82-1.09); PROTHROMBIN TIME (PATIENT) 14.4 SEC (9.98-11.88)
[2016-12-09 20:39] LABS: ALBUMIN 3.2 g/dl (3.4-5.0); CALCIUM 9.7 mg/dL (8.5-10.1); CREATININE 1.2 mg/dL (0.55-1.02)
[2016-12-09 20:43] LABS: BILIRUBIN,TOTAL 0.5 mg/dL (0.2-1.0); TOT PROT 6.1 g/dl (6.4-8.2); TROPONIN I 0.03 ng/ml (0.00-0.05)
[2016-12-09 20:58] LABS: ANISOCYTOSIS 1+; HYPOCHROMIA 1+; PLATELET ESTIMATE ADEQUATE (NORMAL)
[2016-12-09] MEDS ORDERED: ALBUTEROL SO4 0.083% IH SOL 2.5 MG/3 ML VIAL.NEB. NEB PRN (22:33)
[2016-12-09] MEDS ORDERED: IPRATROPIUM BR 0.02% 0.5 MG/2.5 ML VIAL.NEB. NEB PRN (22:33)
[2016-12-10] MEDS ORDERED: ACETAMINOPHEN 325 MG TABLET (FP) PO ONE (01:54)
[2016-12-10] MEDS ORDERED: ACETAMINOPHEN 325 MG TABLET (FP) ONE (03:04)
[2016-12-10 07:04] LABS: BASOPHIL 0.8 % (0-2.0); EOSINOPHIL 1.4 % (0-4.5); MCH 33.6 pg (25.7-33.7); MCHC 33.9 g/dl (32.0-36.0); MEAN CELL VOLUME 99.1 fl (80-96); MEAN PLT VOLUME 8.8 fl (7.5-11.1); NEUTROPHILS 68.7 % (42.8-82.8); PLATELET COUNT 143 K/MM3 (134-434); RDW 21.7 % (11.6-15.6); WHITE BLOOD COUNT 8.8 K/mm3 (4.0-10.0)
[2016-12-10] MEDS ORDERED: oxyCODONE HCL 5 MG TABLET ONE (07:19)
[2016-12-10] MEDS: oxyCODONE HCL 5 MG TABLET PO PRN ×2 (07:23→22:32)
[2016-12-10 07:29] LABS: CALCIUM 9.8 mg/dL (8.5-10.1); CREATININE 1.5 mg/dL (0.55-1.02); PHOSPHOROUS 3.4 mg/dL (2.5-4.9)
[2016-12-10 09:32] LABS: MAGNESIUM 2.6 mg/dL (1.8-2.4)
[2016-12-10] MEDS ORDERED: MAGNESIUM CL 64 MG TABLET.SA PO SCH (10:00)
--- NOTE | 2016-12-10 10:06 | HP ---
Admitting History and Physical - Primary Care Physician PCP: Neftali Garcia - Admission Chief Complaint: I fell History of Present Illness: Ms Desouza is a very pleasant 89 year old female who came in after a mechanical fall. She says she was walking and accidentally tripped over her walker. She hit her left side and was having some soreness and aching on the left side. She says she did not lose consciousness or hit her head. She denies passing out. She denies fevers, chills, lightheadedness, dizziness, chest pain, shortness of breath, nausea, vomiting, diarrhea, constipation, difficulty or pain on urination, or leg pain. She does complain of pain in her gluteal region. Spoke with the son in law who endorses patient had a mechanical fall. She has a history of a decubitus ulcer which is causing her pain. History Source: Patient, Family Member Limitations to Obtaining History: Dementia - Past Medical History DISPUTE RESOLUTION ANALYST: Yes: Dementia Cardiovascular: Yes: CHF, HTN, Hyperlipdemia, Pulmonary Hypertension, Other ( pacemaker) Pulmonary: Yes: Other (pleural effusions) Gastrointestinal: Yes: Other (Clostridia difficile colitis , ventral hernia) Heme/Onc: Yes: Anemia Infectious Disease: Yes: C-Diff Psych: Yes: Depression Rheumatology: Yes: Gout - Past Surgical History Past Surgical History: Yes: Permanent Pacemaker, Tonsillectomy - Smoking History Smoking history: Never smoked Have you smoked in the past 12 months: No Aproximately how many cigarettes per day: 0 If you are a former smoker, when did you quit?: 50 years ago - Alcohol/Substance Use Hx Alcohol Use: No History of Substance Use: reports: None - Social History Usual Living Arrangement: Yes: With Child ADL: Family Assistance History of Recent Travel: No Home Medications - Allergies Allergies/Adverse Reactions: Allergies Allergy/AdvReac Type Severity Reaction Status Date / Time No Known Allergies Allergy Verified 12/09/16 19:45 - Home Medications Home Medications: Ambulatory Orders Allopurinol [Zyloprim -] 100 mg PO DAILY 10/30/16 Amlodipine Besylate [Norvasc -] 10 mg PO DAILY 10/30/16 Ascorbic Acid [Vitamin C] 500 mg PO DAILY 10/30/16 Citalopram Hydrobromide [Celexa -] 20 mg PO DAILY 10/30/16 Cyanocobalamin (Vitamin B-12) [B-12] 1,000 mcg PO DAILY 10/30/16 Fenofibrate,Micronized [Fenofibrate] 135 mg PO DAILY 10/30/16 Ferrous Sulfate 325 mg PO DAILY 10/30/16 Folic Acid 1 mg PO DAILY 10/30/16 Furosemide [Lasix -] 40 mg PO DAILY 10/30/16 Magnesium Chloride [Mag64] 2 tab PO DAILY 10/30/16 Metoprolol Tartrate [Lopressor -] 50 mg PO BID 10/30/16 Multivitamins [Multivit ([facility] Formulary)] 1 tab PO DAILY 10/30/16 Ranitidine [Zantac -] 150 mg PO BID 10/30/16 Clonidine HCl [Catapres -] 0.1 mg PO BID #60 tablet 10/31/16 Carvedilol 6.25 mg PO BID 12/09/16 Hydralazine HCl [Apresoline -] 25 mg PO BID 12/09/16 Family Disease History - Family Disease History Family Disease History: Heart Disease: Sister, Respiratory: Father (TB, COPD), Other: Father, Mother ( of ruptured appendix), Brother (bladder cancer) Review of Systems Findings/Remarks: Full review of systems obtained, as per HPI and otherwise negative Physical Examination Vital Signs: Vital Signs Temperature 98.2 F 12/10/16 06:30 Pulse Rate 63 12/10/16 06:30 Respiratory Rate 18 12/10/16 06:30 Blood Pressure 118/60 12/10/16 06:30 O2 Sat by Pulse Oximetry (%) 100 12/10/16 06:30 Constitutional: Yes: Well Nourished, No Distress, Calm Eyes: Yes: Conjunctiva Clear, PERRL HENT: Yes: Atraumatic, Normocephalic Cardiovascular: Yes: Regular Rate and Rhythm. No: Gallop, Murmur, Rub Respiratory: Yes: Regular, CTA Bilaterally. No: Rales, Rhonchi, Wheezes Gastrointestinal: Yes: Normal Bowel Sounds, Soft. No: Distention, Tenderness Extremities: Yes: Other (LLE bandage) Edema: LLE: 2+ Integumentary: Yes: Pressure Ulcer Labs: CBC, BMP 12/10/16 06:40 12/10/16 06:40 Imaging - Results Chest X-ray: Report Reviewed, Image Reviewed X-ray: Report Reviewed Cat Scan: Report Reviewed Problem List - Problems (1) Fall Assessment/Plan: -patient with mechanical fall -admit -fall risk precautions -PT consult -may need SNF if patient and family agree Code(s): W19.XXXA - UNSPECIFIED FALL, INITIAL ENCOUNTER Qualifiers: Encounter type: initial encounter Qualified Code(s): W19.XXXA - Unspecified fall, initial encounter (2) Multiple rib fractures Assessment/Plan: -currently pain is controlled -monitor -son in law notes patient can get confused on oxycodone -will stop oxycodone currently, however if needs pain medication may need to restart and closely monitor Code(s): S22.49XA - MULTIPLE FRACTURES OF RIBS, UNSP SIDE, INIT FOR CLOS FX Qualifiers: Encounter type: initial encounter Fracture type: closed Laterality : right Qualified Code(s): S22.41XA - Multiple fractures of ribs, right side , initial encounter for closed fracture (3) Anemia Assessment/Plan: -recent drop since last admission -check stool for occult blood -s/p 1 unit pRBCs -continue iron supplementation -iron studies Code(s): D64.9 - ANEMIA, UNSPECIFIED Qualifiers: Anemia type: other cause Other causes of anemia: chronic disease, other Qualified Code(s): D63.8 - Anemia in other chronic diseases classified elsewhere (4) OSCAR (acute kidney injury) Assessment/Plan: -worsened with transfusion -consult nephrology -hold all nephrotoxic agents Code(s): N17.9 - ACUTE KIDNEY FAILURE, UNSPECIFIED (5) Contusion of left leg Code(s): S80.12XA - CONTUSION OF LEFT LOWER LEG, INITIAL ENCOUNTER Qualifiers : Encounter type: initial encounter Qualified Code(s): S80.12XA - Contusion of left lower leg, initial encounter (6) CHF (congestive heart failure) Assessment/Plan: -not in exacerbation -holding diuretics -close monitoring if needs fluids Code(s): I50.9 - HEART FAILURE, UNSPECIFIED Qualifiers: Congestive heart failure type: systolic Congestive heart failure chronicity: chronic Qualified Code(s): I50.22 - Chronic systolic ( congestive) heart failure (7) Gout Assessment/Plan: -continue allopurinol Code(s): M10.9 - GOUT, UNSPECIFIED (8) HTN (hypertension) Assessment/Plan: -currently well controlled -continue current regimen -son in law notes blood pressure at home required more medication for control -may need to increase or add another agent Code(s): I10 - ESSENTIAL (PRIMARY) HYPERTENSION
[2016-12-10] MEDS: hydrALAZINE HCL 25 MG TABLET (FP) PO SCH ×2 (11:37→21:15)
[2016-12-10] MEDS: cloNIDine HCL 0.1 MG TABLET PO SCH ×2 (11:38→21:15)
[2016-12-10] MEDS: CITALOPRAM HYDROBROMIDE 20 MG TABLET (FP) PO SCH (11:39)
[2016-12-10] MEDS: DOCUSATE SODIUM 100 MG CAPSULE (FP) PO SCH ×2 (11:39→21:15)
[2016-12-10] MEDS: FOLIC ACID 1 MG TABLET (FP) PO SCH (11:40)
[2016-12-10] MEDS: MULTIVITAMINS (DAILY MVI) TABLET (FP) PO SCH (11:40)
[2016-12-10] MEDS: FENOFIBRIC ACID 135 MG CAP PO SCH (11:40)
[2016-12-10] MEDS: FERROUS SO4 325 MG TABLET (FP) PO SCH (11:40)
[2016-12-10] MEDS: METOPROLOL TARTRATE 50 MG TABLET (FP) PO SCH ×2 (11:40→21:15)
[2016-12-10] MEDS: POLYETHYLENE GLYCOL 3350 119 GM BTL PO SCH (11:40)
[2016-12-10] MEDS: CYANOCOBALAMIN 1,000 MCG TABLET (FP) PO SCH (11:41)
[2016-12-10] MEDS: ALLOPURINOL 100 MG TABLET (FP) PO SCH (11:41)
[2016-12-10] MEDS: RANITIDINE HCL 150 MG TABLET (FP) PO SCH ×2 (11:41→21:15)
[2016-12-10 12:00] VITALS: BMI 26.4
--- NOTE | 2016-12-10 12:24 | CONSULT ---
Consult - text type - Consultation Consultation Note: Renal Consult for OSCAR This is a 89 year old woman with history of urinary retention requiring light catheter who presented s/p mechanical fall with OSCAR with Cr of 1.5. Pt states that she was walking and tripped and fell. Has pain on her left side. No sob or chest pain. Denies any symptoms of urinary retention. No light at home. Denies any NSAID use. No recent contrast exposure. Pt is on Lasix at home. No ARB or ACEi. Denies any dysuria or flank pain. No Hx of stones. Reprots good oral intake. No N/V/D or Abd pain. No fever or chills. PMhx: as above Allergies: NKDA Family hx: NC Social hx: no T/A/D ROS: as per HPI, all other pertinent ros negative Home Meds: Home Medications Medication Instructions Recorded Allopurinol [Zyloprim -] 100 mg PO DAILY 10/30/16 Amlodipine Besylate [Norvasc -] 10 mg PO DAILY 10/30/16 Ascorbic Acid [Vitamin C] 500 mg PO DAILY 10/30/16 Citalopram Hydrobromide [Celexa -] 20 mg PO DAILY 10/30/16 Cyanocobalamin (Vitamin B-12) 1,000 mcg PO DAILY 10/30/16 [B-12] Fenofibrate,Micronized 135 mg PO DAILY 10/30/16 [Fenofibrate] Ferrous Sulfate 325 mg PO DAILY 10/30/16 Folic Acid 1 mg PO DAILY 10/30/16 Furosemide [Lasix -] 40 mg PO DAILY 10/30/16 Magnesium Chloride [Mag64] 2 tab PO DAILY 10/30/16 Metoprolol Tartrate [Lopressor -] 50 mg PO BID 10/30/16 Multivitamins [Multivit ([facility] 1 tab PO DAILY 10/30/16 Formulary)] Ranitidine [Zantac -] 150 mg PO BID 10/30/16 Clonidine HCl [Catapres -] 0.1 mg PO BID #60 tablet 10/31/16 Carvedilol 6.25 mg PO BID 12/09/16 Hydralazine HCl [Apresoline -] 25 mg PO BID 12/09/16 Vital Signs Temperature 98.3 F 12/10/16 10:30 Pulse Rate 65 12/10/16 10:30 Respiratory Rate 18 12/10/16 10:30 Blood Pressure 135/55 12/10/16 10:30 O2 Sat by Pulse Oximetry (%) 98 12/10/16 10:30 Intake & Output 12/07/16 12/08/16 12/09/16 12/10/16 23:59 23:59 23:59 23:59 Weight 225 lb 144 lb 6.55 oz Gen: NAD, awake and alert HEENT: NC/AT, No JVD CVS: RRR, No M/R Lungs: CTA, no rales Abd: soft NT/ND, no bladder distension Ext: + edema in LE Neuro: No focal defects CBC, BMP 12/10/16 06:40 12/10/16 06:40 Current Medications Acetaminophen (Tylenol -) 650 mg PO Q4H PRN PRN Reason: FEVER OR PAIN Albuterol Sulfate (Ventolin 0.083% Nebulizer Soln -) 1 amp NEB Q6H PRN PRN Reason: SHORT OF BREATH/WHEEZING Allopurinol (Zyloprim -) 100 mg PO DAILY [facility] Last Admin: 12/10/16 11:41 Dose: 100 mg Citalopram Hydrobromide (Celexa -) 20 mg PO DAILY [facility] Last Admin: 12/10/16 11:39 Dose: 20 mg Clonidine (Catapres -) 0.1 mg PO BID [facility] Last Admin: 12/10/16 11:38 Dose: 0.1 mg Cyanocobalamin (Vitamin B12 -) 1,000 mcg PO DAILY [facility] Last Admin: 12/10/16 11:41 Dose: 1,000 mcg Docusate Sodium (Colace -) 100 mg PO BID [facility] Last Admin: 12/10/16 11:39 Dose: 100 mg Fenofibric Acid (Trilipix -) 135 mg PO DAILY [facility] Last Admin: 12/10/16 11:40 Dose: 135 mg Ferrous Sulfate (Feosol -) 325 mg PO DAILY [facility] Last Admin: 12/10/16 11:40 Dose: 325 mg Folic Acid (Folic Acid -) 1 mg PO DAILY [facility] Last Admin: 12/10/16 11:40 Dose: 1 mg Hydralazine HCl (Apresoline -) 25 mg PO BID [facility] Last Admin: 12/10/16 11:37 Dose: 25 mg Ipratropium [place] (Atrovent 0.02% Nebulizer -) 1 amp NEB Q6H PRN PRN Reason: WHEEZING Metoprolol Tartrate (Lopressor -) 50 mg PO BID [facility] Last Admin: 12/10/16 11:40 Dose: 50 mg Multivitamins/Minerals/Vitamin C (Tab-A-Vit -) 1 tab PO DAILY [facility] Last Admin: 12/10/16 11:40 Dose: 1 tab Oxycodone HCl (Roxicodone -) 5 mg PO Q6H PRN PRN Reason: PAIN Last Admin: 12/10/16 07:23 Dose: 5 mg Polyethylene Glycol (Miralax (For Daily Use) -) 17 gm PO DAILY [facility] Last Admin: 12/10/16 11:40 Dose: Not Given Ranitidine HCl (Zantac -) 150 mg PO BID [facility] Last Admin: 12/10/16 11:41 Dose: 150 mg A/P 89 year old woman with history of urinary retention requiring light catheter who presented s/p mechanical fall with OSCAR with Cr of 1.5. Pt states that she was walking and tripped and fell. #Acute Kidney Injury r/o urinary retention vs. pre-renal azotemia from intravasular volume depletion Check Urine studies and Renal/Bladder US to r/o retention If no evidence of retention start tiral of IVF NS at 84cc per hour Hold Lasix for now No REDDY or ARB Avoid NSAIDs for pain control Ternd BUN/Cr and urine output Dose all meds for Cr CL less then 30 #Mechanical fall with Rib Fractures Pain control Avoid NSAIDs supportive Care #Acute on chronic anemia (macrocytic) Trend CBC No acute indication for transfusion at this time Check Vit B12 and Folic acid levels #Hypertension Continue Clonidine/Hydralazine for now Goal BP < 150/100 avoid REDDY/ARB for now Check renal and bladder US to r/o retention Light placement if eveidence of bladder distension and PVR hold diuretics as high BUN/Cr ratio if no evidence of obstruction would start IVF: NS at 84cc per hour x 24 hours Trend BUN/cr avoid NSAIDs for pain control Check iron studies thank you Will follow Joni Alonzo DO
--- NOTE | 2016-12-10 13:32 | EKG ---
Test Reason : Blood Pressure : / mmHG Vent. Rate : 062 BPM Atrial Rate : 062 BPM P-R Int : 198 ms QRS Dur : 160 ms QT Int : 464 ms P-R-T Axes : 081 -81 095 degrees QTc Int : 470 ms Atrial-sensed ventricular-paced rhythm ABNORMAL ECG WHEN COMPARED WITH ECG OF 30-OCT-2016 10:02, NO SIGNIFICANT CHANGE WAS FOUND Confirmed by SUNNY STERN MD ([id number]) on 12/10/2016 1:31:44 PM Referred By: Confirmed By:SUNNY STERN MD
[2016-12-10] MEDS ORDERED: SODIUM CHLORIDE 1,000 ML IV SCH (20:45)
[2016-12-11 09:41] LABS: CALCIUM 9.4 mg/dL (8.5-10.1); CREATININE 1.2 mg/dL (0.55-1.02); MAGNESIUM 2.4 mg/dL (1.8-2.4); PHOSPHOROUS 2.6 mg/dL (2.5-4.9)
[2016-12-11 09:44] LABS: FERRITIN 436.144 ng/ml (6.9-282.5)
[2016-12-11] MEDS: ACETAMINOPHEN 325 MG TABLET (FP) PO PRN (11:18)
[2016-12-11] MEDS: hydrALAZINE HCL 25 MG TABLET (FP) PO SCH ×2 (11:19→21:42)
[2016-12-11] MEDS: FOLIC ACID 1 MG TABLET (FP) PO SCH (11:19)
[2016-12-11] MEDS: MULTIVITAMINS (DAILY MVI) TABLET (FP) PO SCH (11:19)
[2016-12-11] MEDS: METOPROLOL TARTRATE 50 MG TABLET (FP) PO SCH ×2 (11:19→21:42)
[2016-12-11] MEDS: ALLOPURINOL 100 MG TABLET (FP) PO SCH (11:19)
[2016-12-11] MEDS: FENOFIBRIC ACID 135 MG CAP PO SCH (11:19)
[2016-12-11] MEDS: FERROUS SO4 325 MG TABLET (FP) PO SCH (11:19)
[2016-12-11] MEDS: RANITIDINE HCL 150 MG TABLET (FP) PO SCH ×2 (11:19→21:42)
[2016-12-11] MEDS: CITALOPRAM HYDROBROMIDE 20 MG TABLET (FP) PO SCH (11:20)
[2016-12-11] MEDS: DOCUSATE SODIUM 100 MG CAPSULE (FP) PO SCH ×2 (11:20→21:42)
[2016-12-11] MEDS: CYANOCOBALAMIN 1,000 MCG TABLET (FP) PO SCH (11:20)
[2016-12-11] MEDS: POLYETHYLENE GLYCOL 3350 119 GM BTL PO SCH (11:20)
[2016-12-11] MEDS: cloNIDine HCL 0.1 MG TABLET PO SCH ×2 (11:20→21:41)
[2016-12-11 15:31] LABS: URINE APPEARANCE CLEAR; URINE BILIRUBIN NEGATIVE (NEGATIVE); URINE BLOOD NEGATIVE (NEGATIVE); URINE COLOR YELLOW; URINE GLUCOSE (UA) NEGATIVE (NEGATIVE); URINE KETONE NEGATIVE (NEGATIVE); URINE LEUK ESTERASE NEGATIVE (NEGATIVE); URINE NITRITE NEGATIVE (NEGATIVE); URINE PROTEIN 1+ (NEGATIVE); URINE UROBILINOGEN NEGATIVE E.U./dl (0.2-1.0)
[2016-12-11 16:19] LABS: URINE MUCUS RARE; URINE RBC <1 /hpf (0-3); URINE WBC 1 /hpf (3-5)
--- NOTE | 2016-12-11 16:37 | PN ---
Progress Note (short form) - Note Progress Note: Renal Follow up for OSCAR Pt seen and examined at the bedside no acute complaints no sob or chest pain good urine output Vital Signs Temperature 98.6 F 12/11/16 14:48 Pulse Rate 62 12/11/16 14:48 Respiratory Rate 16 12/11/16 14:48 Blood Pressure 124/53 12/11/16 14:48 O2 Sat by Pulse Oximetry (%) 97 12/10/16 21:00 Gen: NAD CVS: RRR, No M/R Lungs: CTA, no rales Abd: soft NT/ND, no bladder distension Ext: + edema in LE CBC, BMP 12/10/16 06:40 12/11/16 08:45 Current Medications Acetaminophen (Tylenol -) 650 mg PO Q4H PRN PRN Reason: FEVER OR PAIN Last Admin: 12/11/16 11:18 Dose: 650 mg Albuterol Sulfate (Ventolin 0.083% Nebulizer Soln -) 1 amp NEB Q6H PRN PRN Reason: SHORT OF BREATH/WHEEZING Allopurinol (Zyloprim -) 100 mg PO DAILY [facility] Last Admin: 12/11/16 11:19 Dose: 100 mg Citalopram Hydrobromide (Celexa -) 20 mg PO DAILY [facility] Last Admin: 12/11/16 11:20 Dose: 20 mg Clonidine (Catapres -) 0.1 mg PO BID [facility] Last Admin: 12/11/16 11:20 Dose: 0.1 mg Cyanocobalamin (Vitamin B12 -) 1,000 mcg PO DAILY [facility] Last Admin: 12/11/16 11:20 Dose: 1,000 mcg Docusate Sodium (Colace -) 100 mg PO BID [facility] Last Admin: 12/11/16 11:20 Dose: 100 mg Fenofibric Acid (Trilipix -) 135 mg PO DAILY [facility] Last Admin: 12/11/16 11:19 Dose: 135 mg Ferrous Sulfate (Feosol -) 325 mg PO DAILY [facility] Last Admin: 12/11/16 11:19 Dose: 325 mg Folic Acid (Folic Acid -) 1 mg PO DAILY [facility] Last Admin: 12/11/16 11:19 Dose: 1 mg Hydralazine HCl (Apresoline -) 25 mg PO BID [facility] Last Admin: 12/11/16 11:19 Dose: 25 mg Ipratropium [place] (Atrovent 0.02% Nebulizer -) 1 amp NEB Q6H PRN PRN Reason: WHEEZING Metoprolol Tartrate (Lopressor -) 50 mg PO BID [facility] Last Admin: 12/11/16 11:19 Dose: 50 mg Multivitamins/Minerals/Vitamin C (Tab-A-Vit -) 1 tab PO DAILY [facility] Last Admin: 12/11/16 11:19 Dose: 1 tab Oxycodone HCl (Roxicodone -) 5 mg PO Q6H PRN PRN Reason: PAIN Last Admin: 12/10/16 22:32 Dose: 5 mg Polyethylene Glycol (Miralax (For Daily Use) -) 17 gm PO DAILY [facility] Last Admin: 12/11/16 11:20 Dose: 17 grams Ranitidine HCl (Zantac -) 150 mg PO BID [facility] Last Admin: 12/11/16 11:19 Dose: 150 mg A/P 89 year old woman with history of urinary retention requiring light catheter who presented s/p mechanical fall with OSCAR with Cr of 1.5. Pt states that she was walking and tripped and fell. #Acute Kidney Injury r/o urinary retention vs. pre-renal azotemia from intravasular volume depletion Renal function with mild improvement with IVF Renal/Bladder US showed no obstruction or retention Urine studies pending continue to trend BUN/Cr #Mechanical fall with Rib Fractures Pain control Avoid NSAIDs supportive Care #Acute on chronic anemia (macrocytic) s/p 1 unit prbc iron studies pending #Hypertension Continue Clonidine/Hydralazine for now Goal BP < 150/100 avoid REDDY/ARB for now Joni Alonzo DO
[2016-12-11 21:53] LABS: URINE CREATININE 51.6 mg/dL
--- NOTE | 2016-12-11 21:58 | PN ---
Physical Exam: SUBJECTIVE: Patient seen and examined at bedside. Points to pain in her right ribs and, "My ass hurts a lot." OBJECTIVE: Vital Signs Period Temp Pulse Resp BP Sys/Cohen Pulse Ox Last 24 Hr 98.3 F-99.0 F 61-68 16-20 124-155/48-70 97 GENERAL: The patient is awake, alert, in no acute distress. HEAD: Normal with no signs of trauma. EYES: PERRL, extraocular movements intact, sclera anicteric, conjunctiva clear. No ptosis. LUNGS: right-sided crackles HEART: Regular rate and rhythm, S1, S2 without murmur, rub or gallop. ABDOMEN: Soft, nontender, nondistended, normoactive bowel sounds, no guarding, no rebound, no hepatosplenomegaly, no masses. EXTREMITIES: 2+ pulses, warm, well-perfused, no edema. NEUROLOGICAL: Cranial nerves II through XII grossly intact. Normal speech, gait not observed. Laboratory Results - last 24 hr 12/11/16 12/11/16 12/11/16 08:45 14:00 14:00 Sodium 139 Potassium 4.1 Chloride 102 Carbon Dioxide 30 Anion Gap 7 L BUN 69 H Creatinine 1.2 H Random Glucose 80 Calcium 9.4 Phosphorus 2.6 D Magnesium 2.4 Ferritin 436.144 H Urine Color Yellow Urine Appearance Clear Urine pH 5.0 Ur Specific [place] 1.013 Urine Protein 1+ H Urine Glucose (UA) Negative Urine Ketones Negative Urine Blood Negative Urine Nitrite Negative Urine Bilirubin Negative Urine Urobilinogen Negative Ur Leukocyte Esterase Negative Urine RBC <1 Urine WBC 1 Ur Epithelial Cells Rare Urine Mucus Rare U Random Total Protein 29 H Ur Random Sodium 20 Ur Random Urea Nitrogn 646 Urine Creatinine 51.6 12/11/16 12/11/16 12/11/16 14:00 14:00 14:00 Sodium Potassium Chloride Carbon Dioxide Anion Gap BUN Creatinine Random Glucose Calcium Phosphorus Magnesium Ferritin Urine Color Urine Appearance Urine pH Ur Specific [place] Urine Protein Urine Glucose (UA) Urine Ketones Urine Blood Urine Nitrite Urine Bilirubin Urine Urobilinogen Ur Leukocyte Esterase Urine RBC Urine WBC Ur Epithelial Cells Urine Mucus U Random Total Protein Cancelled Ur Random Sodium Ur Random Urea Nitrogn Cancelled Urine Creatinine Cancelled Active Medications Generic Name Dose Route Start Last Admin Trade Name Freq PRN Reason Stop Dose Admin Acetaminophen 650 mg 12/09/16 22:33 12/11/16 11:18 Tylenol - PO 650 mg Q4H PRN Administration FEVER OR PAIN Albuterol Sulfate 1 amp 12/09/16 22:33 Ventolin 0.083% Nebulizer Soln - NEB Q6H PRN SHORT OF BREATH/WHEEZING Allopurinol 100 mg 12/10/16 10:00 12/11/16 11:19 Zyloprim - PO 100 mg DAILY [facility] Administration Citalopram Hydrobromide 20 mg 12/10/16 10:00 12/11/16 11:20 Celexa - PO 20 mg DAILY [facility] Administration Clonidine 0.1 mg 12/10/16 10:00 12/11/16 21:41 Catapres - PO 0.1 mg BID [facility] Administration Cyanocobalamin 1,000 mcg 12/10/16 10:00 12/11/16 11:20 Vitamin B12 - PO 1,000 mcg DAILY [facility] Administration Docusate Sodium 100 mg 12/10/16 10:00 12/11/16 21:42 Colace - PO 100 mg BID [facility] Administration Fenofibric Acid 135 mg 12/10/16 10:00 12/11/16 11:19 Trilipix - PO 135 mg DAILY [facility] Administration Ferrous Sulfate 325 mg 12/10/16 10:00 12/11/16 11:19 Feosol - PO 325 mg DAILY [facility] Administration Folic Acid 1 mg 12/10/16 10:00 12/11/16 11:19 Folic Acid - PO 1 mg DAILY [facility] Administration Hydralazine HCl 25 mg 12/10/16 10:00 12/11/16 21:42 Apresoline - PO 25 mg BID [facility] Administration Ipratropium [place] 1 amp 12/09/16 22:33 Atrovent 0.02% Nebulizer - NEB Q6H PRN WHEEZING Metoprolol Tartrate 50 mg 12/10/16 10:00 12/11/16 21:42 Lopressor - PO 50 mg BID [facility] Administration Multivitamins/Minerals/Vitamin C 1 tab 12/10/16 10:00 12/11/16 11:19 Tab-A-Vit - PO 1 tab DAILY [facility] Administration Oxycodone HCl 5 mg 12/09/16 22:33 12/10/16 22:32 Roxicodone - PO 5 mg Q6H PRN Administration PAIN Polyethylene Glycol 17 gm 12/10/16 10:00 12/11/16 11:20 Miralax (For Daily Use) - PO 17 grams DAILY [facility] Administration Ranitidine HCl 150 mg 12/10/16 10:00 12/11/16 21:42 Zantac - PO 150 mg BID [facility] Administration 12/09 CXR: increased interstitial markings; small left pleural effusion; slightly displaced fracture in lateral arch right 5th, 7th, 8th, 9th ribs 12/09 CT head: no acute process 12/09 Xray left knee: effusion 12/10 US renal: no evidence of retention ASSESSMENT/PLAN 89 year-old woman with a PMH of HTN, HLD, CHF s/p PPM, pHTN, c.diff, anemia, dementia, depression and gout, admitted following mechanical fall with slightly displaced right rib fractures. Multiple rib fractures s/p mechanical fall --pain presently well-controlled --avoid oxycodone as it causes confusion in this patient; avoid NSAIDS --abdominal binder Acute on chronic macrocytic anemia --s/p transfused 1U PRBC with good response, Hgb 7.0-->8.8 --stool for occult blood ordered --continue iron supplementation, B12, folic acid OSCAR --Cr peaked 1.5, now trending down 1.2 (baseline 1.0) --improved with IV fluids --hold REDDY/ARB, nephrotoxins Chronic systolic heart failure --hold diuretics due to OSCAR --crackles heard on exam today, will monitor closely --repeat CXR in am Gout, chronic --continue allopurinol Hypertension --BP well-controlled --continue metoprolol, clonidine, hydralazine F/E/N Fluids: PO intake adequate Electrolytes: replete as indicated Nutrition: low sodium DVT prophylaxis: subq heparin, oob, ambulation Dispo: continues to require inpatient care. Full Code. Visit type - Emergency Visit Emergency Visit: Yes ED Registration Date: 12/09/16 Care time: The patient presented to the Emergency Department on the above date and was hospitalized for further evaluation of their emergent condition. - New Patient This patient is new to me today: Yes Date on this admission: 12/12/16 - Critical Care Critical Care patient: No
[2016-12-12] MEDS ORDERED: HEPARIN NA (PORCINE) 5,000 UNITS/ML 1ML VIAL SQ SCH (06:00)
[2016-12-12 06:06] LABS: SERUM IRON 24 ug/dL (27-139); TOTAL IRON BINDING CAPACITY 212 ug/dL (250-450); UIBC 188 ug/dL (118-369)
[2016-12-12 08:10] LABS: BASOPHIL 0.7 % (0-2.0); MCH 34.2 pg (25.7-33.7); MCHC 34.1 g/dl (32.0-36.0); MEAN CELL VOLUME 100.3 fl (80-96); MEAN PLT VOLUME 8.8 fl (7.5-11.1); NEUTROPHILS 75.9 % (42.8-82.8); PLATELET COUNT 140 K/MM3 (134-434); RDW 21.7 % (11.6-15.6); WHITE BLOOD COUNT 10.2 K/mm3 (4.0-10.0)
--- NOTE | 2016-12-12 08:49 | PN ---
Physical Exam: SUBJECTIVE: Patient seen and examined. How are you? "Don't ask." Confused. 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 OBJECTIVE: Vital Signs Period Temp Pulse Resp BP Sys/Cohen Pulse Ox Last 24 Hr 98.3 F-98.8 F 61-68 16-20 124-151/53-70 97-97 GENERAL: The patient is A&O x 1. No apparent distress. HEAD: Normal with no signs of trauma. EYES: PERRL, extraocular movements intact, sclera anicteric, conjunctiva clear. No ptosis. LUNGS: Diminished breath sounds on right; breathing is not labored HEART: Regular rate and rhythm, S1, S2 without murmur, rub or gallop. ABDOMEN: Soft, nontender, nondistended, normoactive bowel sounds, no guarding, no rebound, no hepatosplenomegaly, no masses. EXTREMITIES: 2+ pulses, warm, well-perfused, no edema. NEUROLOGICAL: Cranial nerves II through XII grossly intact. Normal speech, gait not observed. Laboratory Results - last 24 hr 12/11/16 12/11/16 12/11/16 08:45 08:45 14:00 WBC RBC Hgb Hct MCV MCHC RDW Plt Count MPV Neutrophils % Lymphocytes % Monocytes % Eosinophils % Basophils % Sodium 139 Potassium 4.1 Chloride 102 Carbon Dioxide 30 Anion Gap 7 L BUN 69 H Creatinine 1.2 H Random Glucose 80 Calcium 9.4 Phosphorus 2.6 D Magnesium 2.4 Iron 24 L TIBC 212 L Iron Saturation 11 L Ferritin 436.144 H Urine Color Urine Appearance Urine pH Ur Specific [place] Urine Protein Urine Glucose (UA) Urine Ketones Urine Blood Urine Nitrite Urine Bilirubin Urine Urobilinogen Ur Leukocyte Esterase Urine RBC Urine WBC Ur Epithelial Cells Urine Mucus U Random Total Protein 29 H Ur Random Sodium 20 Ur Random Urea Nitrogn 646 Urine Creatinine 51.6 12/11/16 12/11/16 12/11/16 14:00 14:00 14:00 WBC RBC Hgb Hct MCV MCHC RDW Plt Count MPV Neutrophils % Lymphocytes % Monocytes % Eosinophils % Basophils % Sodium Potassium Chloride Carbon Dioxide Anion Gap BUN Creatinine Random Glucose Calcium Phosphorus Magnesium Iron TIBC Iron Saturation Ferritin Urine Color Yellow Urine Appearance Clear Urine pH 5.0 Ur Specific [place] 1.013 Urine Protein 1+ H Urine Glucose (UA) Negative Urine Ketones Negative Urine Blood Negative Urine Nitrite Negative Urine Bilirubin Negative Urine Urobilinogen Negative Ur Leukocyte Esterase Negative Urine RBC <1 Urine WBC 1 Ur Epithelial Cells Rare Urine Mucus Rare U Random Total Protein Cancelled Ur Random Sodium Ur Random Urea Nitrogn Urine Creatinine Cancelled 12/11/16 12/12/16 14:00 06:30 WBC 10.2 H RBC 2.54 L Hgb 8.7 L Hct 25.5 L MCV 100.3 H MCHC 34.1 RDW 21.7 H Plt Count 140 MPV 8.8 Neutrophils % 75.9 Lymphocytes % 11.0 D Monocytes % 11.4 H Eosinophils % 1.0 Basophils % 0.7 Sodium Potassium Chloride Carbon Dioxide Anion Gap BUN Creatinine Random Glucose Calcium Phosphorus Magnesium Iron TIBC Iron Saturation Ferritin Urine Color Urine Appearance Urine pH Ur Specific [place] Urine Protein Urine Glucose (UA) Urine Ketones Urine Blood Urine Nitrite Urine Bilirubin Urine Urobilinogen Ur Leukocyte Esterase Urine RBC Urine WBC Ur Epithelial Cells Urine Mucus U Random Total Protein Ur Random Sodium Ur Random Urea Nitrogn Cancelled Urine Creatinine Active Medications Generic Name Dose Route Start Last Admin Trade Name Ryanq PRN Reason Stop Dose Admin Acetaminophen 650 mg 12/09/16 22:33 12/11/16 11:18 Tylenol - PO 650 mg Q4H PRN Administration FEVER OR PAIN Albuterol Sulfate 1 amp 12/09/16 22:33 Ventolin 0.083% Nebulizer Soln - NEB Q6H PRN SHORT OF BREATH/WHEEZING Allopurinol 100 mg 12/10/16 10:00 12/11/16 11:19 Zyloprim - PO 100 mg DAILY BELEN Administration Citalopram Hydrobromide 20 mg 12/10/16 10:00 12/11/16 11:20 Celexa - PO 20 mg DAILY [facility] Administration Clonidine 0.1 mg 12/10/16 10:00 12/11/16 21:41 Catapres - PO 0.1 mg BID BELEN Administration Cyanocobalamin 1,000 mcg 12/10/16 10:00 12/11/16 11:20 Vitamin B12 - PO 1,000 mcg DAILY [facility] Administration Docusate Sodium 100 mg 12/10/16 10:00 12/11/16 21:42 Colace - PO 100 mg BID [facility] Administration Fenofibric Acid 135 mg 12/10/16 10:00 12/11/16 11:19 Trilipix - PO 135 mg DAILY [facility] Administration Ferrous Sulfate 325 mg 03/28/17 10:00 12/11/16 11:19 Feosol - PO 325 mg DAILY [facility] Administration Folic Acid 1 mg 12/10/16 10:00 12/11/16 11:19 Folic Acid - PO 1 mg DAILY [facility] Administration Heparin Sodium (Porcine) 5,000 unit 12/12/16 06:00 12/12/16 07:02 Heparin - SQ 5,000 unit TID BELEN Administration Hydralazine HCl 25 mg 12/10/16 10:00 12/11/16 21:42 Apresoline - PO 25 mg BID [facility] Administration Ipratropium [place] 1 amp 12/09/16 22:33 Atrovent 0.02% Nebulizer - NEB Q6H PRN WHEEZING Metoprolol Tartrate 50 mg 12/10/16 10:00 12/11/16 21:42 Lopressor - PO 50 mg BID [facility] Administration Multivitamins/Minerals/Vitamin C 1 tab 12/10/16 10:00 12/11/16 11:19 Tab-A-Vit - PO 1 tab DAILY [facility] Administration Polyethylene Glycol 17 gm 12/10/16 10:00 12/11/16 11:20 Miralax (For Daily Use) - PO 17 grams DAILY [facility] Administration Ranitidine HCl 150 mg 12/10/16 10:00 12/11/16 21:42 Zantac - PO 150 mg BID BELEN Administration ASSESSMENT/PLAN: 12/09 CXR: increased interstitial markings; small left pleural effusion; slightly displaced fracture in lateral arch right 5th, 7th, 8th, 9th ribs 12/09 CT head: no acute process 12/09 Xray left knee: effusion 12/10 US renal: no evidence of retention 12/12 CXR: large right pleural effusion concerning for hemothorax in setting of rib fractures ASSESSMENT/PLAN 89 year-old woman with a PMH of HTN, HLD, CHF s/p PPM, pHTN, c.diff, anemia, dementia, depression and gout, admitted following mechanical fall with slightly displaced right rib fractures. Multiple rib fractures s/p mechanical fall Large right pleural effusion --large right pleural effusion seen on CXR this am, concerning for hemothorax --IR will review stat for possible chest tube placement --IV Lasix 40mg x 1 Acute on chronic macrocytic anemia --s/p transfused 1U PRBC with good response, Hgb 7.0-->8.8 --h/h stable --stool for occult blood ordered --continue iron supplementation, B12, folic acid OSCAR --Cr peaked 1.5, now trending down 1.2 (baseline 1.0) --improved with IV fluids --hold REDDY/ARB, nephrotoxins Chronic systolic heart failure --hold diuretics for now, will reasses Gout, chronic --continue allopurinol Hypertension --BP well-controlled --continue metoprolol, clonidine, hydralazine F/E/N Fluids: PO intake adequate Electrolytes: replete as indicated Nutrition: low sodium DVT prophylaxis: stop subq heparin due to possible hemothorax; SCDs, oob, ambulation Dispo: continues to require inpatient care. Full Code. Visit type - Emergency Visit Emergency Visit: Yes ED Registration Date: 12/09/16 Care time: The patient presented to the Emergency Department on the above date and was hospitalized for further evaluation of their emergent condition. - New Patient This patient is new to me today: No - Critical Care Critical Care patient: No
[2016-12-12 08:59] LABS: ALBUMIN 3.1 g/dl (3.4-5.0); BILIRUBIN,TOTAL 0.7 mg/dL (0.2-1.0); CALCIUM 9.6 mg/dL (8.5-10.1); CREATININE 1.1 mg/dL (0.55-1.02); MAGNESIUM 2.4 mg/dL (1.8-2.4); PHOSPHOROUS 2.9 mg/dL (2.5-4.9)
[2016-12-12] MEDS: CITALOPRAM HYDROBROMIDE 20 MG TABLET (FP) PO SCH ×2 (11:29→12:58)
[2016-12-12] MEDS: cloNIDine HCL 0.1 MG TABLET PO SCH ×2 (11:29→21:26)
[2016-12-12] MEDS: DOCUSATE SODIUM 100 MG CAPSULE (FP) PO SCH ×2 (11:29→21:26)
[2016-12-12] MEDS: hydrALAZINE HCL 25 MG TABLET (FP) PO SCH ×3 (11:29→21:26)
[2016-12-12] MEDS: POLYETHYLENE GLYCOL 3350 119 GM BTL PO SCH ×2 (11:30→12:59)
[2016-12-12] MEDS: MULTIVITAMINS (DAILY MVI) TABLET (FP) PO SCH ×2 (11:30→12:57)
[2016-12-12] MEDS: FOLIC ACID 1 MG TABLET (FP) PO SCH ×2 (11:30→12:58)
[2016-12-12] MEDS: METOPROLOL TARTRATE 50 MG TABLET (FP) PO SCH ×2 (11:30→21:26)
[2016-12-12] MEDS: FERROUS SO4 325 MG TABLET (FP) PO SCH ×2 (11:30→12:58)
[2016-12-12] MEDS: CYANOCOBALAMIN 1,000 MCG TABLET (FP) PO SCH ×2 (11:31→13:02)
[2016-12-12] MEDS: RANITIDINE HCL 150 MG TABLET (FP) PO SCH ×2 (11:31→21:26)
[2016-12-12] MEDS: FENOFIBRIC ACID 135 MG CAP PO SCH ×2 (11:31→12:58)
[2016-12-12] MEDS: ALLOPURINOL 100 MG TABLET (FP) PO SCH ×2 (11:31→13:02)
[2016-12-12] MEDS ORDERED: FUROSEMIDE 40 MG/4 ML INJECTABLE VIAL IVPUSH ONE (11:45)
--- NOTE | 2016-12-12 11:50 | PN ---
Progress Note (short form) - Note Progress Note: Renal Follow up for OSCAR Pt seen and examined at the bedside no complaints denies sob or pain CXR showed large effsion - concern for hemothorax s/p fall off IVF Vital Signs Temperature 98.4 F 12/12/16 10:00 Pulse Rate 65 12/12/16 10:00 Respiratory Rate 18 12/12/16 10:00 Blood Pressure 136/58 12/12/16 10:00 O2 Sat by Pulse Oximetry (%) 97 12/11/16 21:00 Intake & Output 12/09/16 12/10/16 12/11/16 12/12/16 23:59 23:59 23:59 23:59 Intake Total 120 1432 Output Total 150 Balance 120 1282 Weight 225 lb 144 lb 6.55 oz 122 lb 4.8 oz 121 lb 3 oz Gen: NAD CVS: RRR, No M/R Lungs: dec BS left lung Abd: soft NT/ND, no bladder distension Ext: + edema in LE CBC, BMP 12/12/16 06:30 12/12/16 06:30 Current Medications Acetaminophen (Tylenol -) 650 mg PO Q4H PRN PRN Reason: FEVER OR PAIN Last Admin: 12/11/16 11:18 Dose: 650 mg Albuterol Sulfate (Ventolin 0.083% Nebulizer Soln -) 1 amp NEB Q6H PRN PRN Reason: SHORT OF BREATH/WHEEZING Allopurinol (Zyloprim -) 100 mg PO DAILY [facility] Last Admin: 12/12/16 11:31 Dose: Not Given Citalopram Hydrobromide (Celexa -) 20 mg PO DAILY [facility] Last Admin: 12/12/16 11:29 Dose: Not Given Clonidine (Catapres -) 0.1 mg PO BID [facility] Last Admin: 12/12/16 11:29 Dose: Not Given Cyanocobalamin (Vitamin B12 -) 1,000 mcg PO DAILY [facility] Last Admin: 12/12/16 11:31 Dose: Not Given Docusate Sodium (Colace -) 100 mg PO BID [facility] Last Admin: 12/12/16 11:29 Dose: Not Given Fenofibric Acid (Trilipix -) 135 mg PO DAILY [facility] Last Admin: 12/12/16 11:31 Dose: Not Given Ferrous Sulfate (Feosol -) 325 mg PO DAILY [facility] Last Admin: 12/12/16 11:30 Dose: Not Given Folic Acid (Folic Acid -) 1 mg PO DAILY [facility] Last Admin: 12/12/16 11:30 Dose: Not Given Hydralazine HCl (Apresoline -) 25 mg PO BID [facility] Last Admin: 12/12/16 11:29 Dose: Not Given Ipratropium [place] (Atrovent 0.02% Nebulizer -) 1 amp NEB Q6H PRN PRN Reason: WHEEZING Metoprolol Tartrate (Lopressor -) 50 mg PO BID [facility] Last Admin: 12/12/16 11:30 Dose: Not Given Multivitamins/Minerals/Vitamin C (Tab-A-Vit -) 1 tab PO DAILY [facility] Last Admin: 12/12/16 11:30 Dose: Not Given Polyethylene Glycol (Miralax (For Daily Use) -) 17 gm PO DAILY [facility] Last Admin: 12/12/16 11:30 Dose: Not Given Ranitidine HCl (Zantac -) 150 mg PO BID [facility] Last Admin: 12/12/16 11:31 Dose: Not Given A/P 89 year old woman with history of urinary retention requiring light catheter who presented s/p mechanical fall with OSCAR with Cr of 1.5. Pt states that she was walking and tripped and fell. #Acute Kidney Injury renal function improved with IVF but holding fluids now because of left chest effusion continue to trend BUN/Cr #Mechanical fall with Rib Fractures/? Hemothroax Pain control Avoid NSAIDs supportive Care further imaging studies as per primary #Acute on chronic anemia (macrocytic) s/p 1 unit prbc iron saturation is low with elevated ferritin (acute phase reactant) continue to trend cbc #Hypertension Continue Clonidine/Hydralazine for now Goal BP < 150/100 avoid REDDY/ARB for now Joni Alonzo DO
[2016-12-13 08:49] LABS: BASOPHIL 0.6 % (0-2.0); EOSINOPHIL 0.2 % (0-4.5); MCH 34.2 pg (25.7-33.7); MCHC 33.8 g/dl (32.0-36.0); MEAN PLT VOLUME 8.8 fl (7.5-11.1); NEUTROPHILS 75.1 % (42.8-82.8); PLATELET COUNT 151 K/MM3 (134-434); RDW 21.1 % (11.6-15.6); WHITE BLOOD COUNT 8.7 K/mm3 (4.0-10.0)
[2016-12-13 09:15] LABS: BILIRUBIN,TOTAL 0.8 mg/dL (0.2-1.0); CALCIUM 9.8 mg/dL (8.5-10.1); CREATININE 1.3 mg/dL (0.55-1.02); MAGNESIUM 2.4 mg/dL (1.8-2.4); PHOSPHOROUS 3.1 mg/dL (2.5-4.9); TOT PROT 5.7 g/dl (6.4-8.2)
[2016-12-13] MEDS: DOCUSATE SODIUM 100 MG CAPSULE (FP) PO SCH ×2 (10:26→21:53)
[2016-12-13] MEDS: FOLIC ACID 1 MG TABLET (FP) PO SCH (10:26)
[2016-12-13] MEDS: CITALOPRAM HYDROBROMIDE 20 MG TABLET (FP) PO SCH (10:26)
[2016-12-13] MEDS: hydrALAZINE HCL 25 MG TABLET (FP) PO SCH ×2 (10:26→21:49)
[2016-12-13] MEDS: CYANOCOBALAMIN 1,000 MCG TABLET (FP) PO SCH (10:26)
[2016-12-13] MEDS: FERROUS SO4 325 MG TABLET (FP) PO SCH (10:26)
[2016-12-13] MEDS: FENOFIBRIC ACID 135 MG CAP PO SCH (10:26)
[2016-12-13] MEDS: ALLOPURINOL 100 MG TABLET (FP) PO SCH (10:26)
[2016-12-13] MEDS: cloNIDine HCL 0.1 MG TABLET PO SCH ×2 (10:26→21:53)
[2016-12-13] MEDS: METOPROLOL TARTRATE 50 MG TABLET (FP) PO SCH ×2 (10:26→21:53)
[2016-12-13] MEDS: RANITIDINE HCL 150 MG TABLET (FP) PO SCH ×2 (10:26→21:53)
[2016-12-13] MEDS: MULTIVITAMINS (DAILY MVI) TABLET (FP) PO SCH (10:26)
[2016-12-13] MEDS: POLYETHYLENE GLYCOL 3350 119 GM BTL PO SCH (10:27)
--- NOTE | 2016-12-13 12:28 | PN ---
Physical Exam: SUBJECTIVE: Patient seen and examined oob to chair. OBJECTIVE: Vital Signs Period Temp Pulse Resp BP Sys/Cohen Pulse Ox Last 24 Hr 97.7 F-98.9 F 76-96 18-20 134-159/62-88 97-97 GENERAL: The patient is A&O x 1. No apparent distress. HEAD: Normal with no signs of trauma. EYES: PERRL, extraocular movements intact, sclera anicteric, conjunctiva clear. No ptosis. LUNGS: Diminished breath sounds on right; breathing is not labored HEART: Regular rate and rhythm, S1, S2 without murmur, rub or gallop. ABDOMEN: Soft, nontender, nondistended, normoactive bowel sounds, no guarding, no rebound, no hepatosplenomegaly, no masses. EXTREMITIES: 2+ pulses, warm, well-perfused, no edema. NEUROLOGICAL: Cranial nerves II through XII grossly intact. Normal speech, gait not observed. Laboratory Results - last 24 hr 12/09/16 12/13/16 12/13/16 23:25 06:05 08:25 WBC 8.7 RBC 2.33 L Hgb 8.0 L Hct 23.6 L MCV 101.0 H MCHC 33.8 RDW 21.1 H Plt Count 151 MPV 8.8 Neutrophils % 75.1 Lymphocytes % 13.2 Monocytes % 10.9 H Eosinophils % 0.2 Basophils % 0.6 Sodium 141 Potassium 4.5 Chloride 104 Carbon Dioxide 31 Anion Gap 6 L BUN 70 H Creatinine 1.3 H Creat Clearance w eGFR 38.57 Random Glucose 118 H D Calcium 9.8 Phosphorus 3.1 Magnesium 2.4 Total Bilirubin 0.8 AST 24 ALT 16 Alkaline Phosphatase 36 L Total Protein 5.7 L Albumin 3.0 L Blood Type A POSITIVE Antibody Screen Negative Crossmatch See Detail Active Medications Generic Name Dose Route Start Last Admin Trade Name Freq PRN Reason Stop Dose Admin Acetaminophen 650 mg 12/09/16 22:33 12/11/16 11:18 Tylenol - PO 650 mg Q4H PRN Administration FEVER OR PAIN Albuterol Sulfate 1 amp 12/09/16 22:33 Ventolin 0.083% Nebulizer Soln - NEB Q6H PRN SHORT OF BREATH/WHEEZING Allopurinol 100 mg 12/10/16 10:00 12/13/16 10:26 Zyloprim - PO 100 mg DAILY BELEN Administration Citalopram Hydrobromide 20 mg 12/10/16 10:00 12/13/16 10:26 Celexa - PO 20 mg DAILY BELEN Administration Clonidine 0.1 mg 12/10/16 10:00 12/13/16 10:26 Catapres - PO 0.1 mg BID BELEN Administration Cyanocobalamin 1,000 mcg 12/10/16 10:00 12/13/16 10:26 Vitamin B12 - PO 1,000 mcg DAILY BELEN Administration Docusate Sodium 100 mg 12/10/16 10:00 12/13/16 10:26 Colace - PO 100 mg BID BELEN Administration Fenofibric Acid 135 mg 12/10/16 10:00 12/13/16 10:26 Trilipix - PO 135 mg DAILY BELEN Administration Ferrous Sulfate 325 mg 12/10/16 10:00 12/13/16 10:26 Feosol - PO 325 mg DAILY BELEN Administration Folic Acid 1 mg 12/10/16 10:00 12/13/16 10:26 Folic Acid - PO 1 mg DAILY [facility]EN Administration Hydralazine HCl 25 mg 12/10/16 10:00 12/13/16 10:26 Apresoline - PO 25 mg BID BELEN Administration Ipratropium [place] 1 amp 12/09/16 22:33 Atrovent 0.02% Nebulizer - NEB Q6H PRN WHEEZING Metoprolol Tartrate 50 mg 12/10/16 10:00 12/13/16 10:26 Lopressor - PO 50 mg BID [facility]EN Administration Multivitamins/Minerals/Vitamin C 1 tab 12/10/16 10:12/13/16 10:26 Tab-A-Vit - PO 1 tab DAILY [facility]EN Administration Polyethylene Glycol 17 gm 12/10/16 10:12/13/16 10:27 Miralax (For Daily Use) - PO 17 grams DAILY BELEN Administration Ranitidine HCl 150 mg 12/10/16 10:12/13/16 10:26 Zantac - PO 150 mg BID BELEN Administration ASSESSMENT/PLAN: 12/09 CXR: increased interstitial markings; small left pleural effusion; slightly displaced fracture in lateral arch right 5th, 7th, 8th, 9th ribs 12/09 CT head: no acute process 12/09 Xray left knee: effusion 12/10 US renal: no evidence of retention 12/12 CXR: large right pleural effusion concerning for hemothorax in setting of rib fractures 12/13 CXR: unchanged ASSESSMENT/PLAN 89 year-old woman with a PMH of HTN, HLD, CHF s/p PPM, pHTN, c.diff, anemia, dementia, depression and gout, admitted following mechanical fall with multiple right-sided rib fractures. Multiple rib fractures s/p mechanical fall Large right pleural effusion, possible hemothorax --large right pleural effusion first seen on 12/12, unchanged on today's CXR --discussed with Dr. Alejandro, as long as patient remains clinically stable will continue to observe Acute on chronic macrocytic anemia --h/h stable --continue iron supplementation, B12, folic acid OSCAR --Cr peaked 1.5, now 1.3 (baseline 1.0) --hold IV fluids due to pleural effusion --hold REDDY/ARB, nephrotoxins Chronic systolic heart failure --hold diuretics for now due to OSCAR Gout, chronic --continue allopurinol Hypertension --goal BP <150/100 --continue metoprolol, clonidine, hydralazine F/E/N Fluids: PO intake adequate Electrolytes: replete as indicated Nutrition: low sodium DVT prophylaxis: stop subq heparin due to possible hemothorax; SCDs, oob, ambulation Dispo: continues to require inpatient care. Full Code. Visit type - Emergency Visit Emergency Visit: Yes ED Registration Date: 12/09/16 Care time: The patient presented to the Emergency Department on the above date and was hospitalized for further evaluation of their emergent condition. - New Patient This patient is new to me today: No - Critical Care Critical Care patient: No
--- NOTE | 2016-12-13 15:42 | PN ---
Progress Note (short form) - Note Progress Note: Renal Follow up for OSCAR Pt seen and examined at the bedside no acute complaints denies any sob or chest pain Tolerating oral diet Vital Signs Temperature 98.5 F 12/13/16 06:00 Pulse Rate 96 H 12/13/16 06:00 Respiratory Rate 20 12/13/16 06:00 Blood Pressure 151/88 12/13/16 06:00 O2 Sat by Pulse Oximetry (%) 97 12/12/16 21:00 Intake & Output 12/10/16 12/11/16 12/12/16 12/13/16 23:59 23:59 23:59 23:59 Intake Total 120 1432 440 120 Output Total 150 Balance 120 1282 440 120 Weight 144 lb 6.55 oz 122 lb 4.8 oz 121 lb 3 oz 116 lb 14.4 oz Gen: NAD CVS: RRR, No M/R Lungs: dec BS left lung Abd: soft NT/ND, no bladder distension Ext: + edema in LE CBC, BMP 12/13/16 08:25 12/13/16 06:05 Current Medications Acetaminophen (Tylenol -) 650 mg PO Q4H PRN PRN Reason: FEVER OR PAIN Last Admin: 12/11/16 11:18 Dose: 650 mg Albuterol Sulfate (Ventolin 0.083% Nebulizer Soln -) 1 amp NEB Q6H PRN PRN Reason: SHORT OF BREATH/WHEEZING Allopurinol (Zyloprim -) 100 mg PO DAILY [facility] Last Admin: 12/13/16 10:26 Dose: 100 mg Citalopram Hydrobromide (Celexa -) 20 mg PO DAILY [facility] Last Admin: 12/13/16 10:26 Dose: 20 mg Clonidine (Catapres -) 0.1 mg PO BID [facility] Last Admin: 12/13/16 10:26 Dose: 0.1 mg Cyanocobalamin (Vitamin B12 -) 1,000 mcg PO DAILY [facility] Last Admin: 12/13/16 10:26 Dose: 1,000 mcg Docusate Sodium (Colace -) 100 mg PO BID [facility] Last Admin: 12/13/16 10:26 Dose: 100 mg Fenofibric Acid (Trilipix -) 135 mg PO DAILY [facility] Last Admin: 12/13/16 10:26 Dose: 135 mg Ferrous Sulfate (Feosol -) 325 mg PO DAILY [facility] Last Admin: 12/13/16 10:26 Dose: 325 mg Folic Acid (Folic Acid -) 1 mg PO DAILY [facility] Last Admin: 12/13/16 10:26 Dose: 1 mg Hydralazine HCl (Apresoline -) 25 mg PO BID [facility] Last Admin: 12/13/16 10:26 Dose: 25 mg Ipratropium [place] (Atrovent 0.02% Nebulizer -) 1 amp NEB Q6H PRN PRN Reason: WHEEZING Metoprolol Tartrate (Lopressor -) 50 mg PO BID [facility] Last Admin: 12/13/16 10:26 Dose: 50 mg Multivitamins/Minerals/Vitamin C (Tab-A-Vit -) 1 tab PO DAILY [facility] Last Admin: 12/13/16 10:26 Dose: 1 tab Polyethylene Glycol (Miralax (For Daily Use) -) 17 gm PO DAILY [facility] Last Admin: 12/13/16 10:27 Dose: 17 grams Ranitidine HCl (Zantac -) 150 mg PO BID [facility] Last Admin: 12/13/16 10:26 Dose: 150 mg A/P 89 year old woman with history of urinary retention requiring light catheter who presented s/p mechanical fall with OSCAR with Cr of 1.5. Pt states that she was walking and tripped and fell. #Acute Kidney Injury Renal function improved but not at baseline yet off IVF because of effusion Trend BMP #Mechanical fall with Rib Fractures/? Hemothroax Management of hemothorax as per primary/IR #Acute on chronic anemia (macrocytic) s/p transfusion #Hypertension Continue Clonidine/Hydralazine for now Goal BP < 150/100 avoid REDDY/ARB for now Joni Alonzo DO
[2016-12-14 08:51] LABS: BASOPHIL 0.6 % (0-2.0); EOSINOPHIL 1.5 % (0-4.5); MCHC 33.2 g/dl (32.0-36.0); MEAN CELL VOLUME 102.2 fl (80-96); MEAN PLT VOLUME 8.9 fl (7.5-11.1); NEUTROPHILS 71.9 % (42.8-82.8); PLATELET COUNT 149 K/MM3 (134-434); WHITE BLOOD COUNT 6.4 K/mm3 (4.0-10.0)
[2016-12-14 09:18] LABS: ALBUMIN 2.9 g/dl (3.4-5.0); BILIRUBIN,TOTAL 0.6 mg/dL (0.2-1.0); CREATININE 1.4 mg/dL (0.55-1.02); MAGNESIUM 2.4 mg/dL (1.8-2.4); PHOSPHOROUS 3.1 mg/dL (2.5-4.9); TOT PROT 5.5 g/dl (6.4-8.2)
[2016-12-14] MEDS: POLYETHYLENE GLYCOL 3350 119 GM BTL PO SCH (10:20)
[2016-12-14] MEDS: DOCUSATE SODIUM 100 MG CAPSULE (FP) PO SCH ×2 (10:20→21:56)
[2016-12-14] MEDS: FERROUS SO4 325 MG TABLET (FP) PO SCH (10:20)
[2016-12-14] MEDS: FOLIC ACID 1 MG TABLET (FP) PO SCH (10:20)
[2016-12-14] MEDS: METOPROLOL TARTRATE 50 MG TABLET (FP) PO SCH ×2 (10:20→21:55)
[2016-12-14] MEDS: cloNIDine HCL 0.1 MG TABLET PO SCH ×2 (10:20→21:55)
[2016-12-14] MEDS: CITALOPRAM HYDROBROMIDE 20 MG TABLET (FP) PO SCH (10:20)
[2016-12-14] MEDS: hydrALAZINE HCL 25 MG TABLET (FP) PO SCH ×2 (10:20→21:55)
[2016-12-14] MEDS: CYANOCOBALAMIN 1,000 MCG TABLET (FP) PO SCH (10:21)
[2016-12-14] MEDS: FENOFIBRIC ACID 135 MG CAP PO SCH (10:21)
[2016-12-14] MEDS: ALLOPURINOL 100 MG TABLET (FP) PO SCH (10:21)
[2016-12-14] MEDS: MULTIVITAMINS (DAILY MVI) TABLET (FP) PO SCH (10:21)
[2016-12-14] MEDS: RANITIDINE HCL 150 MG TABLET (FP) PO SCH ×2 (10:21→21:55)
--- NOTE | 2016-12-14 13:11 | PN ---
Progress Note (short form) - Note Progress Note: The pain is tolerable Denies SOB O/E Heart irregular Lungs few scattered rales and rhonchi+ Abd soft' Ext b/l +1 edema Mod pallor+ Vital Signs Period Temp Pulse Resp BP Sys/Cohen Pulse Ox Last 24 Hr 98.1 F-98.9 F 76-88 20-20 139-166/72-81 97-97 Current Medications Acetaminophen (Tylenol -) 650 mg PO Q4H PRN PRN Reason: FEVER OR PAIN Last Admin: 12/11/16 11:18 Dose: 650 mg Albuterol Sulfate (Ventolin 0.083% Nebulizer Soln -) 1 amp NEB Q6H PRN PRN Reason: SHORT OF BREATH/WHEEZING Allopurinol (Zyloprim -) 100 mg PO DAILY [facility] Last Admin: 12/14/16 10:21 Dose: 100 mg Citalopram Hydrobromide (Celexa -) 20 mg PO DAILY [facility] Last Admin: 12/14/16 10:20 Dose: 20 mg Clonidine (Catapres -) 0.1 mg PO BID [facility] Last Admin: 12/14/16 10:20 Dose: 0.1 mg Cyanocobalamin (Vitamin B12 -) 1,000 mcg PO DAILY [facility] Last Admin: 12/14/16 10:21 Dose: 1,000 mcg Docusate Sodium (Colace -) 100 mg PO BID [facility] Last Admin: 12/14/16 10:20 Dose: 100 mg Fenofibric Acid (Trilipix -) 135 mg PO DAILY [facility] Last Admin: 12/14/16 10:21 Dose: 135 mg Ferrous Sulfate (Feosol -) 325 mg PO DAILY [facility] Last Admin: 12/14/16 10:20 Dose: 325 mg Folic Acid (Folic Acid -) 1 mg PO DAILY [facility] Last Admin: 12/14/16 10:20 Dose: 1 mg Hydralazine HCl (Apresoline -) 25 mg PO BID [facility] Last Admin: 12/14/16 10:20 Dose: 25 mg Ipratropium [place] (Atrovent 0.02% Nebulizer -) 1 amp NEB Q6H PRN PRN Reason: WHEEZING Metoprolol Tartrate (Lopressor -) 50 mg PO BID [facility] Last Admin: 12/14/16 10:20 Dose: 50 mg Multivitamins/Minerals/Vitamin C (Tab-A-Vit -) 1 tab PO DAILY [facility] Last Admin: 12/14/16 10:21 Dose: 1 tab Polyethylene Glycol (Miralax (For Daily Use) -) 17 gm PO DAILY [facility] Last Admin: 12/14/16 10:20 Dose: 17 grams Ranitidine HCl (Zantac -) 150 mg PO BID [facility] Last Admin: 12/14/16 10:21 Dose: 150 mg Laboratory Results - last 24 hr 12/14/16 12/14/16 06:00 06:00 WBC 6.4 RBC 2.24 L Hgb 7.6 L Hct 22.9 L MCV 102.2 H MCHC 33.2 RDW 21.0 H Plt Count 149 MPV 8.9 Neutrophils % 71.9 Lymphocytes % 11.3 Monocytes % 14.7 H Eosinophils % 1.5 D Basophils % 0.6 Sodium 143 Potassium 4.6 Chloride 106 Carbon Dioxide 33 H Anion Gap 4 L BUN 75 H Creatinine 1.4 H Creat Clearance w eGFR 35.41 Random Glucose 99 Calcium 10.0 Phosphorus 3.1 Magnesium 2.4 Total Bilirubin 0.6 D AST 16 D ALT 15 Alkaline Phosphatase 36 L Total Protein 5.5 L Albumin 2.9 L A&P 1. Fracture of ribs 2. Anemia 3. Age associated debility 4. HTN 5. CKD Overall prognosis is poor. Her best chance of a rapid and meaningful recovery is correcting anemia and getting rehab and OOB early and resuming ADLs as tolerated. Shall transfuse and get PT
--- NOTE | 2016-12-14 17:43 | PN ---
Progress Note, Physician Chief Complaint: 89 y/o female admitted after a fall and fx ribs. Has many undelying medical problems, including CKD. The patient continues to have profould anemia. and is receiving PRBC transfusion - Current Medication List Current Medications: Active Medications Acetaminophen (Tylenol -) 650 mg PO Q4H PRN PRN Reason: FEVER OR PAIN Last Admin: 12/11/16 11:18 Dose: 650 mg Albuterol Sulfate (Ventolin 0.083% Nebulizer Soln -) 1 amp NEB Q6H PRN PRN Reason: SHORT OF BREATH/WHEEZING Allopurinol (Zyloprim -) 100 mg PO DAILY [facility] Last Admin: 12/14/16 10:21 Dose: 100 mg Citalopram Hydrobromide (Celexa -) 20 mg PO DAILY [facility] Last Admin: 12/14/16 10:20 Dose: 20 mg Clonidine (Catapres -) 0.1 mg PO BID [facility] Last Admin: 12/14/16 10:20 Dose: 0.1 mg Cyanocobalamin (Vitamin B12 -) 1,000 mcg PO DAILY [facility] Last Admin: 12/14/16 10:21 Dose: 1,000 mcg Docusate Sodium (Colace -) 100 mg PO BID [facility] Last Admin: 12/14/16 10:20 Dose: 100 mg Fenofibric Acid (Trilipix -) 135 mg PO DAILY [facility] Last Admin: 12/14/16 10:21 Dose: 135 mg Ferrous Sulfate (Feosol -) 325 mg PO DAILY [facility] Last Admin: 12/14/16 10:20 Dose: 325 mg Folic Acid (Folic Acid -) 1 mg PO DAILY [facility] Last Admin: 12/14/16 10:20 Dose: 1 mg Furosemide (Lasix Injection -) 40 mg IVPUSH ONCE ONE Stop: 12/14/16 19:01 Hydralazine HCl (Apresoline -) 25 mg PO BID [facility] Last Admin: 12/14/16 10:20 Dose: 25 mg Ipratropium [place] (Atrovent 0.02% Nebulizer -) 1 amp NEB Q6H PRN PRN Reason: WHEEZING Metoprolol Tartrate (Lopressor -) 50 mg PO BID [facility] Last Admin: 12/14/16 10:20 Dose: 50 mg Multivitamins/Minerals/Vitamin C (Tab-A-Vit -) 1 tab PO DAILY [facility] Last Admin: 12/14/16 10:21 Dose: 1 tab Polyethylene Glycol (Miralax (For Daily Use) -) 17 gm PO DAILY [facility] Last Admin: 12/14/16 10:20 Dose: 17 grams Ranitidine HCl (Zantac -) 150 mg PO BID [facility] Last Admin: 12/14/16 10:21 Dose: 150 mg - Objective Vital Signs: Vital Signs Temperature 97.9 F 12/14/16 14:38 Pulse Rate 67 12/14/16 14:38 Respiratory Rate 20 12/14/16 14:38 Blood Pressure 147/63 12/14/16 14:38 O2 Sat by Pulse Oximetry (%) 94 L 12/14/16 09:00 Constitutional: Yes: No Distress, Calm Eyes: Yes: Conjunctiva Clear Neck: Yes: Trachea Midline Cardiovascular: Yes: Regular Rate and Rhythm, S1, S2 Respiratory: Yes: Regular, CTA Bilaterally, Diminished, Poor Air Entry Gastrointestinal: Yes: Normal Bowel Sounds, Soft Musculoskeletal: Yes: Back Pain, Joint Stiffness, Muscle Pain Edema: Yes Edema: LLE: Trace, RLE: Trace Neurological: Yes: Confusion Labs: CBC, BMP 12/14/16 06:00 12/14/16 06:00 INR, PTT INR 1.30 (0.82-1.09) H 12/09/16 19:45 Problem List - Problems (1) OSCAR (acute kidney injury) Code(s): N17.9 - ACUTE KIDNEY FAILURE, UNSPECIFIED (2) Anemia Code(s): D64.9 - ANEMIA, UNSPECIFIED Qualifiers: Anemia type: other cause Other causes of anemia: chronic disease, other Qualified Code(s): D63.8 - Anemia in other chronic diseases classified elsewhere (3) Contusion of left leg Code(s): S80.12XA - CONTUSION OF LEFT LOWER LEG, INITIAL ENCOUNTER Qualifiers : Encounter type: initial encounter Qualified Code(s): S80.12XA - Contusion of left lower leg, initial encounter (4) Fall Code(s): W19.XXXA - UNSPECIFIED FALL, INITIAL ENCOUNTER Qualifiers: Encounter type: initial encounter Qualified Code(s): W19.XXXA - Unspecified fall, initial encounter (5) Gait instability Code(s): R26.81 - UNSTEADINESS ON FEET (6) Multiple rib fractures Code(s): S22.49XA - MULTIPLE FRACTURES OF RIBS, UNSP SIDE, INIT FOR CLOS FX Qualifiers: Encounter type: initial encounter Fracture type: closed Laterality : right Qualified Code(s): S22.41XA - Multiple fractures of ribs, right side , initial encounter for closed fracture (7) Abscess or cellulitis of leg Code(s): L02.419 - CUTANEOUS ABSCESS OF LIMB, UNSPECIFIED L03.119 - CELLULITIS OF UNSPECIFIED PART OF LIMB (8) Acute on chronic diastolic CHF (congestive heart failure) Code(s): I50.33 - ACUTE ON CHRONIC DIASTOLIC (CONGESTIVE) HEART FAILURE (9) CHF (congestive heart failure) Code(s): I50.9 - HEART FAILURE, UNSPECIFIED Qualifiers: Congestive heart failure type: systolic Congestive heart failure chronicity: chronic Qualified Code(s): I50.22 - Chronic systolic ( congestive) heart failure (10) Edema leg Code(s): R60.0 - LOCALIZED EDEMA Qualifiers: Laterality: bilateral Qualified Code(s): R60.0 - Localized edema (11) HLD (hyperlipidemia) Code(s): E78.5 - HYPERLIPIDEMIA, UNSPECIFIED (12) HTN (hypertension) Code(s): I10 - ESSENTIAL (PRIMARY) HYPERTENSION (13) Hyperkalemia Code(s): E87.5 - HYPERKALEMIA (14) Hypernatremia Code(s): E87.0 - HYPEROSMOLALITY AND HYPERNATREMIA (15) Pleural effusion on left Code(s): J90 - PLEURAL EFFUSION, NOT ELSEWHERE CLASSIFIED (16) Urinary tract infection Code(s): N39.0 - URINARY TRACT INFECTION, SITE NOT SPECIFIED Assessment/Plan 89 y/o female with traumatic fall and Fx ribs. Severe anemia, multifactorial, but acutely due to possible blood loss. Renal functions almost near her baseline. Will monitor the renal functions with you. Concur with the current management. May need to transfuse until stable to maintain Hgb > 10 gm/dL, considering her advanced age and muliple co-morbid conditions.
[2016-12-14] MEDS ORDERED: FUROSEMIDE 40 MG/4 ML INJECTABLE VIAL IVPUSH ONE (19:00)
[2016-12-14] MEDS: ACETAMINOPHEN 325 MG TABLET (FP) PO PRN (19:04)
[2016-12-15] MEDS: CITALOPRAM HYDROBROMIDE 20 MG TABLET (FP) PO SCH (10:01)
[2016-12-15] MEDS: DOCUSATE SODIUM 100 MG CAPSULE (FP) PO SCH ×2 (10:01→21:14)
[2016-12-15] MEDS: hydrALAZINE HCL 25 MG TABLET (FP) PO SCH ×2 (10:01→21:14)
[2016-12-15] MEDS: cloNIDine HCL 0.1 MG TABLET PO SCH ×2 (10:01→21:14)
[2016-12-15] MEDS: FERROUS SO4 325 MG TABLET (FP) PO SCH (10:02)
[2016-12-15] MEDS: FOLIC ACID 1 MG TABLET (FP) PO SCH (10:02)
[2016-12-15] MEDS: FENOFIBRIC ACID 135 MG CAP PO SCH (10:03)
[2016-12-15] MEDS: CYANOCOBALAMIN 1,000 MCG TABLET (FP) PO SCH (10:03)
[2016-12-15] MEDS: MULTIVITAMINS (DAILY MVI) TABLET (FP) PO SCH (10:03)
[2016-12-15] MEDS: RANITIDINE HCL 150 MG TABLET (FP) PO SCH ×2 (10:03→21:13)
[2016-12-15] MEDS: METOPROLOL TARTRATE 50 MG TABLET (FP) PO SCH ×2 (10:03→21:14)
[2016-12-15] MEDS: ALLOPURINOL 100 MG TABLET (FP) PO SCH (10:03)
[2016-12-15] MEDS: POLYETHYLENE GLYCOL 3350 119 GM BTL PO SCH (10:03)
[2016-12-15 11:08] LABS: BILIRUBIN,TOTAL 1.4 mg/dL (0.2-1.0); CREATININE 1.3 mg/dL (0.55-1.02); TOT PROT 5.9 g/dl (6.4-8.2)
--- NOTE | 2016-12-15 12:48 | PN ---
Progress Note (short form) - Note Progress Note: Has back and generalized body pains Breathing is OK O/E Heart irregular Lungs few scattered rales mainly in the LL+ Abd soft Ext trace edema Current Medications Acetaminophen (Tylenol -) 650 mg PO Q4H PRN PRN Reason: FEVER OR PAIN Last Admin: 12/14/16 19:04 Dose: 650 mg Allopurinol (Zyloprim -) 100 mg PO DAILY [facility] Last Admin: 12/15/16 10:03 Dose: 100 mg Citalopram Hydrobromide (Celexa -) 20 mg PO DAILY [facility] Last Admin: 12/15/16 10:01 Dose: 20 mg Clonidine (Catapres -) 0.1 mg PO BID [facility] Last Admin: 12/15/16 10:01 Dose: 0.1 mg Cyanocobalamin (Vitamin B12 -) 1,000 mcg PO DAILY [facility] Last Admin: 12/15/16 10:03 Dose: 1,000 mcg Docusate Sodium (Colace -) 100 mg PO BID [facility] Last Admin: 12/15/16 10:01 Dose: 100 mg Fenofibric Acid (Trilipix -) 135 mg PO DAILY [facility] Last Admin: 12/15/16 10:03 Dose: 135 mg Ferrous Sulfate (Feosol -) 325 mg PO DAILY [facility] Last Admin: 12/15/16 10:02 Dose: 325 mg Folic Acid (Folic Acid -) 1 mg PO DAILY [facility] Last Admin: 12/15/16 10:02 Dose: 1 mg Hydralazine HCl (Apresoline -) 25 mg PO BID [facility] Last Admin: 12/15/16 10:01 Dose: 25 mg Metoprolol Tartrate (Lopressor -) 50 mg PO BID [facility] Last Admin: 12/15/16 10:03 Dose: 50 mg Multivitamins/Minerals/Vitamin C (Tab-A-Vit -) 1 tab PO DAILY [facility] Last Admin: 12/15/16 10:03 Dose: 1 tab Polyethylene Glycol (Miralax (For Daily Use) -) 17 gm PO DAILY [facility] Last Admin: 12/15/16 10:03 Dose: 17 grams Ranitidine HCl (Zantac -) 150 mg PO BID [facility] Last Admin: 12/15/16 10:03 Dose: 150 mg Vital Signs Period Temp Pulse Resp BP Sys/Cohen Pulse Ox Last 24 Hr 97.9 F-98.6 F 67-92 20-22 130-178/60-77 95 Laboratory Results - last 24 hr 12/14/16 12/15/16 13:40 10:00 Sodium 145 Potassium 4.3 Chloride 105 Carbon Dioxide 34 H Anion Gap 6 L BUN 71 H Creatinine 1.3 H Creat Clearance w eGFR 38.57 Random Glucose 98 Calcium 10.0 Total Bilirubin 1.4 H D AST 16 ALT 18 Alkaline Phosphatase 41 L Total Protein 5.9 L Albumin 3.0 L Blood Type A POSITIVE Antibody Screen Negative Crossmatch See Detail A&P 1. Fracture of ribs 2. Anemia 3. Age associated debility 4. HTN 5. CKD S/P Transfusion. F/U labs. prn pain meds and discharge plans. Her DNR orders were reviewed and a DNR order was placed.
[2016-12-15 17:56] LABS: BASOPHIL 0.7 % (0-2.0); EOSINOPHIL 1.3 % (0-4.5); MCH 32.2 pg (25.7-33.7); MCHC 33.5 g/dl (32.0-36.0); MEAN CELL VOLUME 96.3 fl (80-96); MEAN PLT VOLUME 8.6 fl (7.5-11.1); NEUTROPHILS 75.8 % (42.8-82.8); PLATELET COUNT 157 K/MM3 (134-434); WHITE BLOOD COUNT 9.2 K/mm3 (4.0-10.0)
[2016-12-16 08:55] LABS: BASOPHIL 0.4 % (0-2.0); MCH 32.1 pg (25.7-33.7); MCHC 32.9 g/dl (32.0-36.0); MEAN CELL VOLUME 97.5 fl (80-96); MEAN PLT VOLUME 8.6 fl (7.5-11.1); PLATELET COUNT 143 K/MM3 (134-434); RDW 22.6 % (11.6-15.6); WHITE BLOOD COUNT 8.3 K/mm3 (4.0-10.0)
[2016-12-16] MEDS: DOCUSATE SODIUM 100 MG CAPSULE (FP) PO SCH ×2 (10:00→22:21)
[2016-12-16] MEDS: FERROUS SO4 325 MG TABLET (FP) PO SCH (10:00)
[2016-12-16] MEDS: cloNIDine HCL 0.1 MG TABLET PO SCH ×2 (10:00→22:21)
[2016-12-16] MEDS: RANITIDINE HCL 150 MG TABLET (FP) PO SCH ×2 (10:00→22:21)
[2016-12-16] MEDS: FENOFIBRIC ACID 135 MG CAP PO SCH (10:00)
[2016-12-16] MEDS: hydrALAZINE HCL 25 MG TABLET (FP) PO SCH ×2 (10:00→22:20)
[2016-12-16] MEDS: MULTIVITAMINS (DAILY MVI) TABLET (FP) PO SCH (10:00)
[2016-12-16] MEDS: ALLOPURINOL 100 MG TABLET (FP) PO SCH (10:00)
[2016-12-16] MEDS: FOLIC ACID 1 MG TABLET (FP) PO SCH (10:00)
[2016-12-16] MEDS: METOPROLOL TARTRATE 50 MG TABLET (FP) PO SCH ×2 (10:00→22:21)
[2016-12-16] MEDS: CYANOCOBALAMIN 1,000 MCG TABLET (FP) PO SCH (10:00)
[2016-12-16] MEDS: CITALOPRAM HYDROBROMIDE 20 MG TABLET (FP) PO SCH (10:00)
[2016-12-16] MEDS: POLYETHYLENE GLYCOL 3350 119 GM BTL PO SCH (10:02)
[2016-12-16] MEDS ORDERED: FUROSEMIDE 40 MG TABLET (FP) PO STA (20:14)
--- NOTE | 2016-12-16 20:16 | PN ---
Physical Exam: SUBJECTIVE: Patient seen and examined OBJECTIVE: Vital Signs Period Temp Pulse Resp BP Sys/Cohen Pulse Ox Last 24 Hr 97.3 F-98.5 F 66-73 18-18 142-178/59-78 94-96 GENERAL: The patient is A&O x 1. No apparent distress. HEAD: Normal with no signs of trauma. EYES: PERRL, extraocular movements intact, sclera anicteric, conjunctiva clear. No ptosis. LUNGS: Diminished breath sounds on right; breathing is not labored HEART: Regular rate and rhythm, S1, S2 without murmur, rub or gallop. ABDOMEN: Soft, nontender, nondistended, normoactive bowel sounds, no guarding, no rebound, no hepatosplenomegaly, no masses. EXTREMITIES: 2+ pulses, warm, well-perfused, no edema. NEUROLOGICAL: Cranial nerves II through XII grossly intact. Normal speech, gait not observed. Laboratory Results - last 24 hr 12/16/16 12/16/16 08:10 12:37 WBC 8.3 RBC 3.37 L Hgb 10.8 Hct 32.8 MCV 97.5 H MCHC 32.9 RDW 22.6 H Plt Count 143 MPV 8.6 Neutrophils % 80.0 Lymphocytes % 8.9 Monocytes % 9.7 Eosinophils % 1.0 Basophils % 0.4 Stool Occult Blood Positive Active Medications Generic Name Dose Route Start Last Admin Trade Name Freq PRN Reason Stop Dose Admin Acetaminophen 650 mg 12/09/16 22:33 12/14/16 19:04 Tylenol - PO 650 mg Q4H PRN Administration FEVER OR PAIN Allopurinol 100 mg 12/10/16 10:00 12/16/16 10:00 Zyloprim - PO 100 mg DAILY [facility] Administration Citalopram Hydrobromide 20 mg 12/10/16 10:00 12/16/16 10:00 Celexa - PO 20 mg DAILY [facility] Administration Clonidine 0.1 mg 12/10/16 10:00 12/16/16 10:00 Catapres - PO 0.1 mg BID [facility] Administration Cyanocobalamin 1,000 mcg 12/10/16 10:00 12/16/16 10:00 Vitamin B12 - PO 1,000 mcg DAILY [facility] Administration Docusate Sodium 100 mg 12/10/16 10:00 12/16/16 10:00 Colace - PO 100 mg BID [facility] Administration Fenofibric Acid 135 mg 12/10/16 10:00 12/16/16 10:00 Trilipix - PO 135 mg DAILY [facility] Administration Ferrous Sulfate 325 mg 12/10/16 10:00 12/16/16 10:00 Feosol - PO 325 mg DAILY [facility] Administration Folic Acid 1 mg 12/10/16 10:00 12/16/16 10:00 Folic Acid - PO 1 mg DAILY [facility] Administration Hydralazine HCl 25 mg 12/10/16 10:00 12/16/16 10:00 Apresoline - PO 25 mg BID [facility] Administration Metoprolol Tartrate 50 mg 12/10/16 10:00 12/16/16 10:00 Lopressor - PO 50 mg BID [facility] Administration Multivitamins/Minerals/Vitamin C 1 tab 12/10/16 10:00 12/16/16 10:00 Tab-A-Vit - PO 1 tab DAILY [facility] Administration Polyethylene Glycol 17 gm 12/10/16 10:00 12/16/16 10:02 Miralax (For Daily Use) - PO 17 grams DAILY [facility] Administration Ranitidine HCl 150 mg 12/10/16 10:00 12/16/16 10:00 Zantac - PO 150 mg BID [facility] Administration Imaging 12/09 CXR: increased interstitial markings; small left pleural effusion; slightly displaced fracture in lateral arch right 5th, 7th, 8th, 9th ribs 12/09 CT head: no acute process 12/09 Xray left knee: effusion 12/10 US renal: no evidence of retention 12/12 CXR: large right pleural effusion concerning for hemothorax in setting of rib fractures 12/13 CXR: unchanged 12/16 Rib xray: acute right rib fractures from 6 to 10; old healed fractures left 7 and 8; bilateral effusions, R>L; fluid on left is most likely blood ASSESSMENT/PLAN 89 year-old woman with a PMH of HTN, HLD, CHF s/p PPM, pHTN, c.diff, anemia, dementia, depression and gout, admitted following mechanical fall with multiple right-sided rib fractures. Multiple rib fractures s/p mechanical fall Large right pleural effusion, possible hemothorax --bilateral effusions R>L; fluid on right most likely blood --oxygen dependent, requires 3L to maintain SaO2 94% at rest; will need home O2 Acute on chronic macrocytic anemia --transfused 1 unit on 12/10, 2 units on 12/14; h/h stable today --stool occult positive today; discussed with daughter, patient had colonoscopy 6 months ago and has chronic bleeding --continue iron supplementation, B12, folic acid OSCAR --Cr 1.3 (baseline 1.0) --hold IV fluids due to pleural effusion --hold REDDY/ARB, nephrotoxins Chronic systolic heart failure --resume home dose Lasix 40mg PO Gout, chronic --continue allopurinol Hypertension --goal BP <150/100 --continue metoprolol, clonidine, hydralazine; restart lasix F/E/N Fluids: PO intake adequate Electrolytes: replete as indicated Nutrition: low sodium DVT prophylaxis: stop subq heparin due to possible hemothorax; SCDs, oob, ambulation Dispo: lengthy discussion by phone with daughter Quita. She understands patient has multiple acute rib fractures and likely has blood in her right lung ; she is unlikely to improve and I suggested patient go to a SNF even if temporary. Daughter is adamant she wants her mother to come home. Referred further questions about available services to [facility] Mccormick. DNR/DNI . Visit type - Emergency Visit Emergency Visit: Yes ED Registration Date: 12/09/16 Care time: The patient presented to the Emergency Department on the above date and was hospitalized for further evaluation of their emergent condition. - New Patient This patient is new to me today: No - Critical Care Critical Care patient: No
[2016-12-17 09:29] LABS: CALCIUM 10.1 mg/dL (8.5-10.1); CREATININE 1.2 mg/dL (0.55-1.02)
[2016-12-17] MEDS ORDERED: PT OWN MED DRAWER 7, Y5N ONE (10:08)
[2016-12-17] MEDS: cloNIDine HCL 0.1 MG TABLET PO SCH ×2 (10:11→22:11)
[2016-12-17] MEDS: DOCUSATE SODIUM 100 MG CAPSULE (FP) PO SCH ×2 (10:11→22:11)
[2016-12-17] MEDS: CITALOPRAM HYDROBROMIDE 20 MG TABLET (FP) PO SCH (10:11)
[2016-12-17] MEDS: hydrALAZINE HCL 25 MG TABLET (FP) PO SCH ×2 (10:11→22:11)
[2016-12-17] MEDS: METOPROLOL TARTRATE 50 MG TABLET (FP) PO SCH ×2 (10:11→22:11)
[2016-12-17] MEDS: ALLOPURINOL 100 MG TABLET (FP) PO SCH (10:11)
[2016-12-17] MEDS: FENOFIBRIC ACID 135 MG CAP PO SCH (10:11)
[2016-12-17] MEDS: FOLIC ACID 1 MG TABLET (FP) PO SCH (10:11)
[2016-12-17] MEDS: CYANOCOBALAMIN 1,000 MCG TABLET (FP) PO SCH (10:11)
[2016-12-17] MEDS: FERROUS SO4 325 MG TABLET (FP) PO SCH (10:11)
[2016-12-17] MEDS: MULTIVITAMINS (DAILY MVI) TABLET (FP) PO SCH (10:11)
[2016-12-17] MEDS: POLYETHYLENE GLYCOL 3350 119 GM BTL PO SCH (10:11)
[2016-12-17] MEDS: FUROSEMIDE 40 MG TABLET (FP) PO SCH (10:11)
[2016-12-17] MEDS: RANITIDINE HCL 150 MG TABLET (FP) PO SCH ×2 (10:11→22:12)
--- NOTE | 2016-12-17 12:47 | PN ---
Progress Note (short form) - Note Progress Note: Renal Follow up for OSCAR Pt seen and examined at the bedside feel tired has pain all over denies sob Vital Signs Temperature 97.5 F L 12/17/16 06:00 Pulse Rate 65 12/17/16 06:00 Respiratory Rate 20 12/17/16 06:00 Blood Pressure 172/72 12/17/16 06:00 O2 Sat by Pulse Oximetry (%) 94 L 12/16/16 21:00 Intake & Output 12/14/16 12/15/16 12/16/16 12/17/16 23:59 23:59 23:59 23:59 Intake Total 1170 100 725 Balance 1170 100 725 Weight 117 lb 9 oz 115 lb 4.8 oz 114 lb 9.6 oz Gen: NAD CVS: RRR, No M/R Lungs: dec BS left lung Abd: soft NT/ND, no bladder distension Ext: + edema in LE CBC, BMP 12/16/16 08:10 12/17/16 08:55 Laboratory Tests 12/17/16 08:55 Sodium 148 H BUN 75 H Creatinine 1.2 H Calcium 10.1 Current Medications Acetaminophen (Tylenol -) 650 mg PO Q4H PRN PRN Reason: FEVER OR PAIN Last Admin: 12/14/16 19:04 Dose: 650 mg Allopurinol (Zyloprim -) 100 mg PO DAILY [facility] Last Admin: 12/17/16 10:11 Dose: 100 mg Citalopram Hydrobromide (Celexa -) 20 mg PO DAILY [facility] Last Admin: 12/17/16 10:11 Dose: 20 mg Clonidine (Catapres -) 0.1 mg PO BID [facility] Last Admin: 12/17/16 10:11 Dose: 0.1 mg Cyanocobalamin (Vitamin B12 -) 1,000 mcg PO DAILY [facility] Last Admin: 12/17/16 10:11 Dose: 1,000 mcg Docusate Sodium (Colace -) 100 mg PO BID [facility] Last Admin: 12/17/16 10:11 Dose: 100 mg Fenofibric Acid (Trilipix -) 135 mg PO DAILY [facility] Last Admin: 12/17/16 10:11 Dose: 135 mg Ferrous Sulfate (Feosol -) 325 mg PO DAILY [facility] Last Admin: 12/17/16 10:11 Dose: 325 mg Folic Acid (Folic Acid -) 1 mg PO DAILY [facility] Last Admin: 12/17/16 10:11 Dose: 1 mg Furosemide (Lasix -) 40 mg PO DAILY [facility] Last Admin: 12/17/16 10:11 Dose: 40 mg Hydralazine HCl (Apresoline -) 25 mg PO BID [facility] Last Admin: 12/17/16 10:11 Dose: 25 mg Metoprolol Tartrate (Lopressor -) 50 mg PO BID [facility] Last Admin: 12/17/16 10:11 Dose: 50 mg Multivitamins/Minerals/Vitamin C (Tab-A-Vit -) 1 tab PO DAILY [facility] Last Admin: 12/17/16 10:11 Dose: 1 tab Polyethylene Glycol (Miralax (For Daily Use) -) 17 gm PO DAILY [facility] Last Admin: 12/17/16 10:11 Dose: 17 grams Ranitidine HCl (Zantac -) 150 mg PO BID [facility] Last Admin: 12/17/16 10:11 Dose: 150 mg A/P 89 year old woman with history of urinary retention requiring light catheter who presented s/p mechanical fall with OSCAR with Cr of 1.5. Pt states that she was walking and tripped and fell. #Acute Kidney Injury Renal function improved but not at baseline yet off IVF because of effusion Trend BMP #Mechanical fall with Rib Fractures/? Hemothroax Management of hemothorax as per primary/IR #Acute on chronic anemia (macrocytic) s/p transfusion #Hypertension Continue Clonidine/Hydralazine for now Goal BP < 150/100 avoid REDDY/ARB for now Joni Alonzo DO
--- NOTE | 2016-12-17 12:50 | PN ---
Progress Note (short form) - Note Progress Note: Renal Follow up for OSCAR Pt seen and examined at the bedside feel tired has pain all over denies sob Vital Signs Temperature 97.5 F L 12/17/16 06:00 Pulse Rate 65 12/17/16 06:00 Respiratory Rate 20 12/17/16 06:00 Blood Pressure 172/72 12/17/16 06:00 O2 Sat by Pulse Oximetry (%) 94 L 12/16/16 21:00 Intake & Output 12/14/16 12/15/16 12/16/16 12/17/16 23:59 23:59 23:59 23:59 Intake Total 1170 100 725 Balance 1170 100 725 Weight 117 lb 9 oz 115 lb 4.8 oz 114 lb 9.6 oz Gen: NAD CVS: RRR, No M/R Lungs: dec BS b/l lung valle Abd: soft NT/ND, no bladder distension Ext: + edema in LE CBC, BMP 12/16/16 08:10 12/17/16 08:55 Current Medications Acetaminophen (Tylenol -) 650 mg PO Q4H PRN PRN Reason: FEVER OR PAIN Last Admin: 12/14/16 19:04 Dose: 650 mg Allopurinol (Zyloprim -) 100 mg PO DAILY [facility] Last Admin: 12/17/16 10:11 Dose: 100 mg Citalopram Hydrobromide (Celexa -) 20 mg PO DAILY [facility] Last Admin: 12/17/16 10:11 Dose: 20 mg Clonidine (Catapres -) 0.1 mg PO BID [facility] Last Admin: 12/17/16 10:11 Dose: 0.1 mg Cyanocobalamin (Vitamin B12 -) 1,000 mcg PO DAILY [facility] Last Admin: 12/17/16 10:11 Dose: 1,000 mcg Docusate Sodium (Colace -) 100 mg PO BID [facility] Last Admin: 12/17/16 10:11 Dose: 100 mg Fenofibric Acid (Trilipix -) 135 mg PO DAILY [facility] Last Admin: 12/17/16 10:11 Dose: 135 mg Ferrous Sulfate (Feosol -) 325 mg PO DAILY [facility] Last Admin: 12/17/16 10:11 Dose: 325 mg Folic Acid (Folic Acid -) 1 mg PO DAILY [facility] Last Admin: 12/17/16 10:11 Dose: 1 mg Furosemide (Lasix -) 40 mg PO DAILY [facility] Last Admin: 12/17/16 10:11 Dose: 40 mg Hydralazine HCl (Apresoline -) 25 mg PO BID [facility] Last Admin: 12/17/16 10:11 Dose: 25 mg Metoprolol Tartrate (Lopressor -) 50 mg PO BID [facility] Last Admin: 12/17/16 10:11 Dose: 50 mg Multivitamins/Minerals/Vitamin C (Tab-A-Vit -) 1 tab PO DAILY [facility] Last Admin: 12/17/16 10:11 Dose: 1 tab Polyethylene Glycol (Miralax (For Daily Use) -) 17 gm PO DAILY [facility] Last Admin: 12/17/16 10:11 Dose: 17 grams Ranitidine HCl (Zantac -) 150 mg PO BID [facility] Last Admin: 12/17/16 10:11 Dose: 150 mg A/P 89 year old woman with history of urinary retention requiring light catheter who presented s/p mechanical fall with OSCAR with Cr of 1.5. Pt states that she was walking and tripped and fell. #Acute Kidney Injury BUN/Cr remain elevated pt on PO lasix for management of effusions continue diuretics as per primary trend BUN/Cr #Mechanical fall with Rib Fractures/? Hemothroax Management of hemothorax as per primary/IR on diuretics #Acute on chronic anemia (macrocytic) s/p transfusion #Hypertension Continue Clonidine/Hydralazine for now Goal BP < 150/100 consider addition of amloipine if BP is consistently > 170 systolic Joni Alonzo DO
--- NOTE | 2016-12-17 14:43 | PN ---
Physical Exam: SUBJECTIVE: Patient seen and examined Pt c/o back pain, remains forgetful. OBJECTIVE: Vital Signs Period Temp Pulse Resp BP Sys/Cohen Pulse Ox Last 24 Hr 97.3 F-98.4 F 65-72 18-20 142-172/59-72 94-96 GENERAL: The patient is awake, alert, and fully oriented, in no acute distress. HEAD: Normal with no signs of trauma. EYES: PERRL, extraocular movements intact, sclera anicteric, conjunctiva clear. No ptosis. ENT: Ears normal, nares patent, oropharynx clear without exudates, moist mucous membranes. NECK: Trachea midline, full range of motion, supple. LUNGS: Breath sounds equal, BS diminished, no wheezes, no crackles, no accessory muscle use. HEART: Regular rate and rhythm, S1, S2 without murmur, rub or gallop. ABDOMEN: Soft, nontender, nondistended, normoactive bowel sounds, no guarding, no rebound, no hepatosplenomegaly, no masses. EXTREMITIES: 2+ pulses, warm, well-perfused, 1+ edema. NEUROLOGICAL: Cranial nerves II through XII grossly intact. Normal speech, gait not observed. PSYCH: Normal mood, normal affect. SKIN: Warm, dry, normal turgor, no rashes or lesions noted,ecchymosis Rt flank and upper extremities Laboratory Results - last 24 hr 12/17/16 08:55 Sodium 148 H Potassium 4.5 Chloride 108 H Carbon Dioxide 36 H Anion Gap 4 L BUN 75 H Creatinine 1.2 H Random Glucose 98 Calcium 10.1 Active Medications Generic Name Dose Route Start Last Admin Trade Name Freq PRN Reason Stop Dose Admin Acetaminophen 650 mg 12/09/16 22:33 12/14/16 19:04 Tylenol - PO 650 mg Q4H PRN Administration FEVER OR PAIN Allopurinol 100 mg 12/10/16 10:00 12/17/16 10:11 Zyloprim - PO 100 mg DAILY [facility] Administration Citalopram Hydrobromide 20 mg 12/10/16 10:00 12/17/16 10:11 Celexa - PO 20 mg DAILY [facility] Administration Clonidine 0.1 mg 12/10/16 10:00 12/17/16 10:11 Catapres - PO 0.1 mg BID [facility] Administration Cyanocobalamin 1,000 mcg 12/10/16 10:00 12/17/16 10:11 Vitamin B12 - PO 1,000 mcg DAILY [facility] Administration Docusate Sodium 100 mg 12/10/16 10:00 12/17/16 10:11 Colace - PO 100 mg BID [facility] Administration Fenofibric Acid 135 mg 12/10/16 10:00 12/17/16 10:11 Trilipix - PO 135 mg DAILY [facility] Administration Ferrous Sulfate 325 mg 12/10/16 10:00 12/17/16 10:11 Feosol - PO 325 mg DAILY [facility] Administration Folic Acid 1 mg 12/10/16 10:00 12/17/16 10:11 Folic Acid - PO 1 mg DAILY [facility] Administration Furosemide 40 mg 12/17/16 10:00 12/17/16 10:11 Lasix - PO 40 mg DAILY [facility] Administration Hydralazine HCl 25 mg 12/10/16 10:00 12/17/16 10:11 Apresoline - PO 25 mg BID [facility] Administration Metoprolol Tartrate 50 mg 12/10/16 10:00 12/17/16 10:11 Lopressor - PO 50 mg BID [facility] Administration Multivitamins/Minerals/Vitamin C 1 tab 12/10/16 10:00 12/17/16 10:11 Tab-A-Vit - PO 1 tab DAILY [facility] Administration Polyethylene Glycol 17 gm 12/10/16 10:00 12/17/16 10:11 Miralax (For Daily Use) - PO 17 grams DAILY [facility] Administration Ranitidine HCl 150 mg 12/10/16 10:00 12/17/16 10:11 Zantac - PO 150 mg BID [facility] Administration 12/13 CXR: unchanged 12/16 Rib xray: acute right rib fractures from 6 to 10; old healed fractures left 7 and 8; bilateral effusions, R>L; fluid on left is most likely blood ASSESSMENT/PLAN This is an 89 year-old woman with a PMH of HTN, HLD, CHF s/p PPM, pHTN, c.diff , anemia, dementia, depression and gout, admitted following mechanical fall with multiple right-sided rib fractures. *Multiple rib fractures s/p mechanical fall Large right pleural effusion, possible hemothorax,-bilateral effusions R>L; - Rpt cxr- No acute changes --bilateral effusions R>L; fluid on right most likely blood -oxygen dependent at home, requires 3L to maintain SaO2 94% at rest* *Acute on chronic macrocytic anemia -transfused 1 unit on 12/10, 2 units on 12/14; h/h stable today -stool occult positive today; discussed with daughter, patient had colonoscopy 6 months ago and has chronic bleeding -continue iron supplementation, B12, folic acid *OSCAR -Cr 1.3 (baseline 1.0) -hold IV fluids due to pleural effusion -hold REDDY/ARB, nephrotoxins *Chronic systolic heart failure -resume home dose Lasix 40mg PO *Gout, chronic -continue allopurinol *Hypertension- BP stable -continue metoprolol, clonidine, hydralazine; restarted lasix *F/E/N Fluids: PO intake adequate Electrolytes: replete as indicated Nutrition: low sodium DVT prophylaxis: stop subq heparin due to possible hemothorax; SCDs, oob, ambulation Code status: DNR/DNI Dispo: Now family deciding about SNF, clinically stable . Visit type - Emergency Visit Emergency Visit: Yes ED Registration Date: 12/09/16 Care time: The patient presented to the Emergency Department on the above date and was hospitalized for further evaluation of their emergent condition. - New Patient This patient is new to me today: Yes Date on this admission: 12/17/16 - Critical Care Critical Care patient: No
[2016-12-17] MEDS: ACETAMINOPHEN 325 MG TABLET (FP) PO PRN (18:18)
[2016-12-18 08:54] LABS: CALCIUM 10.2 mg/dL (8.5-10.1); CREATININE 1.1 mg/dL (0.55-1.02); MAGNESIUM 2.4 mg/dL (1.8-2.4); PHOSPHOROUS 2.4 mg/dL (2.5-4.9)
[2016-12-18] MEDS: cloNIDine HCL 0.1 MG TABLET PO SCH ×2 (10:04→22:27)
[2016-12-18] MEDS: DOCUSATE SODIUM 100 MG CAPSULE (FP) PO SCH ×2 (10:04→22:27)
[2016-12-18] MEDS: FENOFIBRIC ACID 135 MG CAP PO SCH (10:04)
[2016-12-18] MEDS: CITALOPRAM HYDROBROMIDE 20 MG TABLET (FP) PO SCH (10:04)
[2016-12-18] MEDS: RANITIDINE HCL 150 MG TABLET (FP) PO SCH ×2 (10:04→22:28)
[2016-12-18] MEDS: MULTIVITAMINS (DAILY MVI) TABLET (FP) PO SCH (10:04)
[2016-12-18] MEDS: ALLOPURINOL 100 MG TABLET (FP) PO SCH (10:04)
[2016-12-18] MEDS: POLYETHYLENE GLYCOL 3350 119 GM BTL PO SCH (10:05)
[2016-12-18] MEDS: CYANOCOBALAMIN 1,000 MCG TABLET (FP) PO SCH (10:05)
[2016-12-18] MEDS: METOPROLOL TARTRATE 50 MG TABLET (FP) PO SCH ×2 (10:05→22:28)
[2016-12-18] MEDS: FOLIC ACID 1 MG TABLET (FP) PO SCH (10:05)
[2016-12-18] MEDS: FUROSEMIDE 40 MG TABLET (FP) PO SCH (10:05)
[2016-12-18] MEDS: hydrALAZINE HCL 25 MG TABLET (FP) PO SCH ×2 (10:05→22:27)
[2016-12-18] MEDS: FERROUS SO4 325 MG TABLET (FP) PO SCH (10:05)
[2016-12-18] MEDS: ACETAMINOPHEN 325 MG TABLET (FP) PO PRN (10:11)
--- NOTE | 2016-12-18 12:02 | PN ---
Progress Note (short form) - Note Progress Note: Renal Follow up for OSCAR Pt seen and examined at the bedside feels unwell but could not specify no sob or chest pain Vital Signs Temperature 97.8 F 12/18/16 06:00 Pulse Rate 65 12/18/16 06:00 Respiratory Rate 20 12/18/16 06:00 Blood Pressure 178/79 12/18/16 06:00 O2 Sat by Pulse Oximetry (%) 96 12/17/16 21:00 Intake & Output 12/15/16 12/16/16 12/17/16 12/18/16 23:59 23:59 23:59 23:59 Intake Total 100 725 150 Balance 100 725 150 Weight 115 lb 4.8 oz 114 lb 9.6 oz 115 lb 4.8 oz Gen: NAD CVS: RRR, No M/R Lungs: dec BS b/l lung valle Abd: soft NT/ND, no bladder distension Ext: + edema in LE CBC, BMP 12/16/16 08:10 12/18/16 07:00 Current Medications Acetaminophen (Tylenol -) 650 mg PO Q4H PRN PRN Reason: FEVER OR PAIN Last Admin: 12/18/16 10:11 Dose: 650 mg Allopurinol (Zyloprim -) 100 mg PO DAILY [facility] Last Admin: 12/18/16 10:04 Dose: 100 mg Citalopram Hydrobromide (Celexa -) 20 mg PO DAILY [facility] Last Admin: 12/18/16 10:04 Dose: 20 mg Clonidine (Catapres -) 0.2 mg PO BID [facility] Last Admin: 12/18/16 10:04 Dose: 0.2 mg Cyanocobalamin (Vitamin B12 -) 1,000 mcg PO DAILY [facility] Last Admin: 12/18/16 10:05 Dose: 1,000 mcg Docusate Sodium (Colace -) 100 mg PO BID [facility] Last Admin: 12/18/16 10:04 Dose: 100 mg Fenofibric Acid (Trilipix -) 135 mg PO DAILY [facility] Last Admin: 12/18/16 10:04 Dose: 135 mg Ferrous Sulfate (Feosol -) 325 mg PO DAILY [facility] Last Admin: 12/18/16 10:05 Dose: 325 mg Folic Acid (Folic Acid -) 1 mg PO DAILY [facility] Last Admin: 12/18/16 10:05 Dose: 1 mg Furosemide (Lasix -) 40 mg PO DAILY [facility] Last Admin: 12/18/16 10:05 Dose: 40 mg Hydralazine HCl (Apresoline -) 25 mg PO BID [facility] Last Admin: 12/18/16 10:05 Dose: 25 mg Metoprolol Tartrate (Lopressor -) 50 mg PO BID [facility] Last Admin: 12/18/16 10:05 Dose: 50 mg Multivitamins/Minerals/Vitamin C (Tab-A-Vit -) 1 tab PO DAILY [facility] Last Admin: 12/18/16 10:04 Dose: 1 tab Polyethylene Glycol (Miralax (For Daily Use) -) 17 gm PO DAILY [facility] Last Admin: 12/18/16 10:05 Dose: 17 grams Ranitidine HCl (Zantac -) 150 mg PO BID [facility] Last Admin: 12/18/16 10:04 Dose: 150 mg A/P 89 year old woman with history of urinary retention requiring light catheter who presented s/p mechanical fall with OSCAR with Cr of 1.5. Pt states that she was walking and tripped and fell. #Acute Kidney Injury BUN/Cr stable On Lasix for effusions pt reports that she is voiding continue to trend BUN/Cr dose all meds for Cr Cl less then 30 #Mechanical fall with Rib Fractures/? Hemothroax Management of hemothorax as per primary/IR on diuretics #Acute on chronic anemia (macrocytic) s/p transfusion #Hypertension Continue Clonidine/Hydralazine for now Goal BP < 150/100 consider addition of amloipine if BP is consistently > 170 systolic #Hypernatremia from diuretics + poor oral fluid intake trend Na, if worsens may need to hold diuretics encouraged oral water intake Joni Alonzo DO
--- NOTE | 2016-12-18 15:52 | PN ---
Physical Exam: SUBJECTIVE: Patient seen and examined OBJECTIVE: Vital Signs Period Temp Pulse Resp BP Sys/Cohen Pulse Ox Last 24 Hr 97.6 F-98.2 F 64-72 16-20 130-178/63-79 96-98 GENERAL: The patient is A&O x 1. No apparent distress. HEAD: Normal with no signs of trauma. EYES: PERRL, extraocular movements intact, sclera anicteric, conjunctiva clear. No ptosis. LUNGS: Diminished breath sounds on right; breathing is not labored HEART: Regular rate and rhythm, S1, S2 without murmur, rub or gallop. ABDOMEN: Soft, nontender, nondistended, normoactive bowel sounds, no guarding, no rebound, no hepatosplenomegaly, no masses. EXTREMITIES: 2+ pulses, warm, well-perfused, no edema. NEUROLOGICAL: Cranial nerves II through XII grossly intact. Normal speech, gait not observed. Laboratory Results - last 24 hr 12/14/16 12/17/16 12/18/16 13:40 19:00 07:00 Sodium 150 H Potassium 4.3 Chloride 108 H Carbon Dioxide 37 H Anion Gap 5 L BUN 73 H Creatinine 1.1 H Random Glucose 101 Calcium 10.2 H Phosphorus 2.4 L D Magnesium 2.4 Stool Occult Blood Negative Blood Type A POSITIVE Antibody Screen Negative Crossmatch See Detail Active Medications Generic Name Dose Route Start Last Admin Trade Name Freq PRN Reason Stop Dose Admin Acetaminophen 650 mg 12/09/16 22:33 12/18/16 10:11 Tylenol - PO 650 mg Q4H PRN Administration FEVER OR PAIN Allopurinol 100 mg 12/10/16 10:00 12/18/16 10:04 Zyloprim - PO 100 mg DAILY [facility] Administration Citalopram Hydrobromide 20 mg 12/10/16 10:00 12/18/16 10:04 Celexa - PO 20 mg DAILY [facility] Administration Clonidine 0.2 mg 12/18/16 08:50 12/18/16 10:04 Catapres - PO 0.2 mg BID [facility] Administration Cyanocobalamin 1,000 mcg 12/10/16 10:00 12/18/16 10:05 Vitamin B12 - PO 1,000 mcg DAILY [facility] Administration Docusate Sodium 100 mg 12/10/16 10:00 12/18/16 10:04 Colace - PO 100 mg BID [facility] Administration Fenofibric Acid 135 mg 12/10/16 10:00 12/18/16 10:04 Trilipix - PO 135 mg DAILY [facility] Administration Ferrous Sulfate 325 mg 12/10/16 10:00 12/18/16 10:05 Feosol - PO 325 mg DAILY [facility] Administration Folic Acid 1 mg 12/10/16 10:00 12/18/16 10:05 Folic Acid - PO 1 mg DAILY [facility] Administration Furosemide 40 mg 12/17/16 10:00 12/18/16 10:05 Lasix - PO 40 mg DAILY [facility] Administration Hydralazine HCl 25 mg 12/10/16 10:00 12/18/16 10:05 Apresoline - PO 25 mg BID [facility] Administration Metoprolol Tartrate 50 mg 12/10/16 10:00 12/18/16 10:05 Lopressor - PO 50 mg BID [facility] Administration Multivitamins/Minerals/Vitamin C 1 tab 12/10/16 10:00 12/18/16 10:04 Tab-A-Vit - PO 1 tab DAILY [facility] Administration Polyethylene Glycol 17 gm 12/10/16 10:00 12/18/16 10:05 Miralax (For Daily Use) - PO 17 grams DAILY [facility] Administration Ranitidine HCl 150 mg 12/10/16 10:00 12/18/16 10:04 Zantac - PO 150 mg BID [facility] Administration Imaging 12/09 CXR: increased interstitial markings; small left pleural effusion; slightly displaced fracture in lateral arch right 5th, 7th, 8th, 9th ribs 12/09 CT head: no acute process 12/09 Xray left knee: effusion 12/10 US renal: no evidence of retention 12/12 CXR: large right pleural effusion concerning for hemothorax in setting of rib fractures 12/13 CXR: unchanged 12/16 Rib xray: acute right rib fractures from 6 to 10; old healed fractures left 7 and 8; bilateral effusions, R>L; fluid on left is most likely blood ASSESSMENT/PLAN 89 year-old woman with a PMH of HTN, HLD, CHF s/p PPM, pHTN, c.diff, anemia, dementia, depression and gout, admitted following mechanical fall with multiple right rib fractures. Multiple rib fractures s/p mechanical fall Large right pleural effusion, possible hemothorax --bilateral effusions R>L; fluid on right most likely blood --oxygen dependent, requires 3L to maintain SaO2 94% at rest; will need home O2 Acute on chronic macrocytic anemia --transfused 1 unit on 12/10, 2 units on 12/14; h/h stable today --first stool occult positive, repeat negative; discussed with daughter, patient had colonoscopy 6 months ago and has chronic bleeding --continue iron supplementation, B12, folic acid OSCAR --Cr 1.3 (baseline 1.0) --hold IV fluids due to pleural effusion --hold REDDY/ARB, nephrotoxins Chronic systolic heart failure --hold Lasix PO for hyponatremia Gout, chronic --continue allopurinol Hypertension --goal BP <150/100 --continue metoprolol, clonidine, hydralazine; restart lasix Hypernatremia --Na 150 --hold Lasix --per renal, will continue to monitor F/E/N Fluids: encourage PO intake Electrolytes: replete as indicated Nutrition: low sodium DVT prophylaxis: stop subq heparin due to possible hemothorax; SCDs, oob, ambulation Dispo: Family now opting for SNF. DNR/DNI . Visit type - Emergency Visit Emergency Visit: Yes ED Registration Date: 12/09/16 Care time: The patient presented to the Emergency Department on the above date and was hospitalized for further evaluation of their emergent condition. - New Patient This patient is new to me today: No - Critical Care Critical Care patient: No
[2016-12-19 08:14] LABS: BASOPHIL 0.8 % (0-2.0); EOSINOPHIL 2.3 % (0-4.5); MCH 32.2 pg (25.7-33.7); MCHC 32.2 g/dl (32.0-36.0); MEAN CELL VOLUME 100.3 fl (80-96); MEAN PLT VOLUME 8.8 fl (7.5-11.1); NEUTROPHILS 73.4 % (42.8-82.8); PLATELET COUNT 124 K/MM3 (134-434); RDW 21.5 % (11.6-15.6); WHITE BLOOD COUNT 6.8 K/mm3 (4.0-10.0)
[2016-12-19 08:39] LABS: ALBUMIN 2.7 g/dl (3.4-5.0); BILIRUBIN,TOTAL 0.7 mg/dL (0.2-1.0); CALCIUM 9.8 mg/dL (8.5-10.1); CREATININE 1.1 mg/dL (0.55-1.02); MAGNESIUM 2.4 mg/dL (1.8-2.4); PHOSPHOROUS 2.2 mg/dL (2.5-4.9); TOT PROT 5.5 g/dl (6.4-8.2)
[2016-12-19] MEDS ORDERED: PT OWN MED DRAWER 7, Y5N ONE (10:11)
[2016-12-19] MEDS: RANITIDINE HCL 150 MG TABLET (FP) PO SCH (10:15)
[2016-12-19] MEDS: ALLOPURINOL 100 MG TABLET (FP) PO SCH (10:15)
[2016-12-19] MEDS: MULTIVITAMINS (DAILY MVI) TABLET (FP) PO SCH (10:15)
[2016-12-19] MEDS: DOCUSATE SODIUM 100 MG CAPSULE (FP) PO SCH (10:15)
[2016-12-19] MEDS: CYANOCOBALAMIN 1,000 MCG TABLET (FP) PO SCH (10:15)
[2016-12-19] MEDS: FOLIC ACID 1 MG TABLET (FP) PO SCH (10:15)
[2016-12-19] MEDS: FENOFIBRIC ACID 135 MG CAP PO SCH (10:15)
[2016-12-19] MEDS: ACETAMINOPHEN 325 MG TABLET (FP) PO PRN (10:15)
[2016-12-19] MEDS: POLYETHYLENE GLYCOL 3350 119 GM BTL PO SCH (10:15)
[2016-12-19] MEDS: cloNIDine HCL 0.1 MG TABLET PO SCH (10:15)
[2016-12-19] MEDS: FERROUS SO4 325 MG TABLET (FP) PO SCH (10:15)
[2016-12-19] MEDS: CITALOPRAM HYDROBROMIDE 20 MG TABLET (FP) PO SCH (10:15)
[2016-12-19] MEDS: hydrALAZINE HCL 25 MG TABLET (FP) PO SCH (10:15)
[2016-12-19] MEDS: METOPROLOL TARTRATE 50 MG TABLET (FP) PO SCH (10:15)
[2016-12-19 12:04] LABS: ANISOCYTOSIS 1+; HYPOCHROMIA 2+; MICROCYTOSIS RARE; STOMATOCYTE 3+; TARGET CELLS 1+
[2016-12-19] MEDS ORDERED: NAPH,MB-DB/K PH,MBDB POWDER PACKET PO SCH (14:00)
--- NOTE | 2016-12-19 14:15 | DS ---
Physical Exam: SUBJECTIVE: Patient seen and examined OBJECTIVE: Vital Signs Period Temp Pulse Resp BP Sys/Cohen Pulse Ox Last 24 Hr 97.4 F-98.5 F 62-72 16-20 130-158/68-83 98 PHYSICAL EXAM GENERAL: The patient is A&O x 1. No apparent distress. HEAD: Normal with no signs of trauma. EYES: PERRL, extraocular movements intact, sclera anicteric, conjunctiva clear. No ptosis. LUNGS: Diminished breath sounds on right; breathing is not labored HEART: Regular rate and rhythm, S1, S2 without murmur, rub or gallop. ABDOMEN: Soft, nontender, nondistended, normoactive bowel sounds, no guarding, no rebound, no hepatosplenomegaly, no masses. EXTREMITIES: 2+ pulses, warm, well-perfused, no edema. NEUROLOGICAL: Cranial nerves II through XII grossly intact. Normal speech, gait not observed. LABS Laboratory Results - last 24 hr 12/19/16 12/19/16 06:15 06:15 WBC 6.8 RBC 3.34 L Hgb 10.8 Hct 33.5 MCV 100.3 H MCHC 32.2 RDW 21.5 H Plt Count 124 L MPV 8.8 Neutrophils % 73.4 Lymphocytes % 12.7 D Monocytes % 10.8 H Eosinophils % 2.3 D Basophils % 0.8 Hypochromic-Microcytic 2+ Anisocytosis 1+ Microcytosis Rare Macrocytosis 1+ Target Cells 1+ Stomatocytes 3+ Morphology Comment Slide scanned Sodium 149 H Potassium 4.4 Chloride 105 Carbon Dioxide 37 H Anion Gap 7 L BUN 70 H Creatinine 1.1 H Creat Clearance w eGFR 46.77 Random Glucose 93 Calcium 9.8 Phosphorus 2.2 L Magnesium 2.4 Total Bilirubin 0.7 D AST 14 L ALT 14 D Alkaline Phosphatase 54 D Total Protein 5.5 L Albumin 2.7 L HOSPITAL COURSE: Date of Admission:12/09/16 Date of Discharge: 12/19/16 Imaging 12/09 CXR: increased interstitial markings; small left pleural effusion; slightly displaced fracture in lateral arch right 5th, 7th, 8th, 9th ribs 12/09 CT head: no acute process 12/09 Xray left knee: effusion 12/10 US renal: no evidence of retention 12/12 CXR: large right pleural effusion concerning for hemothorax in setting of rib fractures 12/13 CXR: unchanged 12/16 Rib xray: acute right rib fractures from 6 to 10; old healed fractures left 7 and 8; bilateral effusions, R>L; fluid on left is most likely blood ASSESSMENT/PLAN 89 year-old woman with a PMH of HTN, HLD, CHF s/p PPM, pHTN, c.diff, anemia, dementia, depression and gout, admitted following mechanical fall with multiple right rib fractures. Multiple rib fractures s/p mechanical fall Large right pleural effusion, possible hemothorax --bilateral effusions R>L; fluid on right most likely blood --serial xrays without change --oxygen dependent, requires 3L to maintain SaO2 94% at rest; will need home O2 Acute on chronic macrocytic anemia --transfused 1 unit on 12/10, 2 units on 12/14; h/h stable thereafter --first stool occult positive, repeat negative; discussed with daughter, patient had colonoscopy 6 months ago and has chronic bleeding --continued iron supplementation, B12, folic acid OSCAR --Cr 1.3 (baseline 1.0) --held IV fluids due to pleural effusion --held REDDY/ARB, nephrotoxins Chronic systolic heart failure --held Lasix PO for hyponatremia Gout, chronic --continue allopurinol Hypertension --goal BP <150/100 --continue metoprolol, clonidine, hydralazine; restart lasix Hypernatremia --Na 150 --held Lasix --per renal, will continue to monitor Minutes to complete discharge: 35 Discharge Summary Reason For Visit: FX OF MULTIPLE RIBS/FALL/UNSTEADY GAIT Current Active Problems OSCAR (acute kidney injury) (Acute) Anemia (Acute) Contusion of left leg (Acute) Fall (Acute) Gait instability (Acute) Multiple rib fractures (Acute) Condition: Stable - Instructions Diet, Activity, Other Instructions: The patient has been mildly hypernatremic for past several days, today Na 149 and trending down. Continue to hold diuretics and check sodium in 48 hours. Encourage patient to drink fluids. Referrals: Neftali Garcia MD [Primary Care Provider] - Joni Alonzo MD [Staff Physician] - Disposition: [facility] - Home Medications Comprehensive Discharge Medication List: Ambulatory Orders Allopurinol [Zyloprim -] 100 mg PO DAILY 10/30/16 Amlodipine Besylate [Norvasc -] 10 mg PO DAILY 10/30/16 Ascorbic Acid [Vitamin C] 500 mg PO DAILY 10/30/16 Citalopram Hydrobromide [Celexa -] 20 mg PO DAILY 10/30/16 Cyanocobalamin (Vitamin B-12) [B-12] 1,000 mcg PO DAILY 10/30/16 Fenofibrate,Micronized [Fenofibrate] 135 mg PO DAILY 10/30/16 Ferrous Sulfate 325 mg PO DAILY 10/30/16 Folic Acid 1 mg PO DAILY 10/30/16 Magnesium Chloride [Mag64] 2 tab PO DAILY 10/30/16 Metoprolol Tartrate [Lopressor -] 50 mg PO BID 10/30/16 Multivitamins [Multivit ([facility])] 1 tab PO DAILY 10/30/16 Ranitidine [Zantac -] 150 mg PO BID 10/30/16 Carvedilol 6.25 mg PO BID 12/09/16 Hydralazine HCl [Apresoline -] 25 mg PO BID 12/09/16 Clonidine HCl [Catapres -] 0.2 mg PO BID tablet 12/19/16 This patient is new to me today: No Emergency Visit: Yes ED Registration Date: 12/09/16 Care time: The patient presented to the Emergency Department on the above date and was hospitalized for further evaluation of their emergent condition. Critical Care patient: No - Discharge Referral Referred to [facility] Med [facility].: No
--- NOTE | 2016-12-19 14:41 | PN ---
Progress Note (short form) - Note Progress Note: Renal Follow up for OSCAR Pt seen and examined at the bedside feels very thirsty no chest pain no sob for discharge to SNF today Vital Signs Temperature 97.4 F L 12/19/16 06:00 Pulse Rate 62 12/19/16 06:00 Respiratory Rate 20 12/19/16 06:00 Blood Pressure 151/68 12/19/16 06:00 O2 Sat by Pulse Oximetry (%) 98 12/18/16 21:00 Intake & Output 12/16/16 12/17/16 12/18/16 12/19/16 23:59 23:59 23:59 23:59 Intake Total 725 150 300 480 Balance 725 150 300 480 Weight 114 lb 9.6 oz 115 lb 4.8 oz 112 lb 8 oz Gen: NAD CVS: RRR, No M/R Lungs: dec BS b/l lung valle Abd: soft NT/ND, no bladder distension Ext: + edema in LE CBC, BMP 12/19/16 06:15 12/19/16 06:15 Laboratory Tests 12/19/16 06:15 Calcium 9.8 Phosphorus 2.2 L Magnesium 2.4 Albumin 2.7 L Current Medications Acetaminophen (Tylenol -) 650 mg PO Q4H PRN PRN Reason: FEVER OR PAIN Last Admin: 12/19/16 10:15 Dose: 650 mg Allopurinol (Zyloprim -) 100 mg PO DAILY [facility] Last Admin: 12/19/16 10:15 Dose: 100 mg Citalopram Hydrobromide (Celexa -) 20 mg PO DAILY [facility] Last Admin: 12/19/16 10:15 Dose: 20 mg Clonidine (Catapres -) 0.2 mg PO BID [facility] Last Admin: 12/19/16 10:15 Dose: 0.2 mg Cyanocobalamin (Vitamin B12 -) 1,000 mcg PO DAILY [facility] Last Admin: 12/19/16 10:15 Dose: 1,000 mcg Docusate Sodium (Colace -) 100 mg PO BID [facility] Last Admin: 12/19/16 10:15 Dose: 100 mg Fenofibric Acid (Trilipix -) 135 mg PO DAILY [facility] Last Admin: 12/19/16 10:15 Dose: 135 mg Ferrous Sulfate (Feosol -) 325 mg PO DAILY [facility] Last Admin: 12/19/16 10:15 Dose: 325 mg Folic Acid (Folic Acid -) 1 mg PO DAILY [facility] Last Admin: 12/19/16 10:15 Dose: 1 mg Hydralazine HCl (Apresoline -) 25 mg PO BID [facility] Last Admin: 12/19/16 10:15 Dose: 25 mg Metoprolol Tartrate (Lopressor -) 50 mg PO BID [facility] Last Admin: 12/19/16 10:15 Dose: 50 mg Multivitamins/Minerals/Vitamin C (Tab-A-Vit -) 1 tab PO DAILY [facility] Last Admin: 12/19/16 10:15 Dose: 1 tab Polyethylene Glycol (Miralax (For Daily Use) -) 17 gm PO DAILY [facility] Last Admin: 12/19/16 10:15 Dose: 17 grams Potassium Phos/Sodium Phos (Phos-Nak Packet -) 1 packet PO TID [facility] Stop: 12/21/16 06:01 Ranitidine HCl (Zantac -) 150 mg PO BID [facility] Last Admin: 12/19/16 10:15 Dose: 150 mg A/P 89 year old woman with history of urinary retention requiring light catheter who presented s/p mechanical fall with OSCAR with Cr of 1.5. Pt states that she was walking and tripped and fell. #Acute Kidney Injury Renal function stable but worse then baseline pt with some intravascular depletion in setting of large effusions/hemothorax that is being managed conservatively Oral fluid intake as tolerated lasix PRN for acute sob Repeat BMP in 3-4 days as outpatient #Hypernatremia from diuretics + poor oral fluid intake encouraged oral water intake and pt states that she is thirsty repeat BMP in 3-4 days Joni Alonzo DO
[2016-12-19 15:10] VITALS: BP 123/55; PULSE 64; TEMP 97.7
== END 2016-12-19 15:47 | DRG 183 ==
LOC: JER 19:11 → JERBED 22:22 → UNDOADMIN 23:13 → J8W 12-10 15:07
PROVIDERS: ADMIT Internal Medicine Geriatric Medicine; ATTEND Nurse Practitioner Acute Care
PROC: 30233P1 Transfusion of Nonautologous Frozen Red Cells into Peripheral Vein, Percutaneous Approach (ICD-10-PCS; principal; 2016-12-10)
DX: S22.41XA Multiple fractures of ribs, right side, initial encounter for closed fracture (principal); S27.1XXA Traumatic hemothorax, initial encounter; N17.9 Acute kidney failure, unspecified; I50.22 Chronic systolic (congestive) heart failure; I13.0 Hypertensive heart and chronic kidney disease with heart failure and stage 1 through stage 4 chronic kidney disease, or unspecified chronic kidney disease; E87.0 Hyperosmolality and hypernatremia; S80.12XA Contusion of left lower leg, initial encounter; W01.0XXA Fall on same level from slipping, tripping and stumbling without subsequent striking against object, initial encounter; Y92.009 Unspecified place in unspecified non-institutional (private) residence as the place of occurrence of the external cause; D64.9 Anemia, unspecified; F03.90 Unspecified dementia, unspecified severity, without behavioral disturbance, psychotic disturbance, mood disturbance, and anxiety; Z95.0 Presence of cardiac pacemaker; F32.9 Major depressive disorder, single episode, unspecified; M25.462 Effusion, left knee; M1A.9XX0 Chronic gout, unspecified, without tophus (tophi); R54 Age-related physical debility; N18.9 Chronic kidney disease, unspecified; Z99.81 Dependence on supplemental oxygen; E83.39 Other disorders of phosphorus metabolism
CPT/HCPCS: 36415; 36430; 70450-TC; 71010-TC; 71020-TC; 71101-TC; 71111-TC; 73523-TC; 73560-TC-LT; 73590-TC-LT; 76775-TC; 76856-TC; 80048; 80053; 81003; 81015; 82272; 82550; 82570; 82728; 83540; 83550; 83735; 84100; 84156; 84300; 84484; 84540; 85025; 85610; 86850; 86900; 86901; 86922; 93005; 93010; 93971-TC; 94761; 97116-GP; 97161-GP; 99285-25; J1644; P9038; P9058